=== PATIENT | female | born 1970 | race Caucasian/White ===

== ENCOUNTER 2018-09-21 11:41 | Emergency (ER) | payer OTHER, SELFPAY ==
[2018-09-21 12:00] VITALS: BP 121/66; PULSE 87; RESP 20; TEMP 37; O2SAT 98
--- NOTE | 2018-09-21 12:04 | DI.RAD.S_ITS ---
PROCEDURE: XR FOOT LT MIN 3V INDICATIONS: left foot and ankle pain TECHNIQUE: 3 views of the foot were acquired. COMPARISON: [facility], CR, ANKLE 3 VIEWS LEFT, 09/18/2012, 16:53. FINDINGS: Bones: No fractures or dislocations. No suspicious bony lesions. Note is made of a moderate-sized plantar fascial insertion spur at the posterior calcaneus, previously present. No source of new pain is identified. Soft tissues: No tibiotalar joint effusion. Achilles tendon appears normal. IMPRESSION: No trauma found, stable-appearing plantar fascia insertion spur at the posterior calcaneus. No source of new pain is not seen. Dictated by: Roman Alberto M.D. on 09/21/2018 at 12:28 Approved by: Roman Alberto M.D. on 09/21/2018 at 12:29
--- NOTE | 2018-09-21 12:05 | DI.RAD.S_ITS ---
PROCEDURE: XR ANKLE LT MIN 3V INDICATIONS: left ankle and foot pain TECHNIQUE: 3 views of the ankle were acquired. COMPARISON: [facility], , ANKLE 3 VIEWS LEFT, 09/18/2012, 16:53. FINDINGS: Bones: No fractures or dislocations. Ankle mortise is normally aligned. No suspicious bony lesions. Soft tissues: No tibiotalar joint effusion. Achilles tendon appears normal. IMPRESSION: No trauma, source of ankle pain is not identified. Dictated by: Roman Alberto M.D. on 09/21/2018 at 12:28 Approved by: Roman Alberto M.D. on 09/21/2018 at 12:28
--- NOTE | 2018-09-21 12:13 | ED.LOWEXIN ---
HPI - Extremity Injury (Lower) <Leilani Freitas PA-C - Last Filed: 09/21/18 19:12> General Chief Complaint: Extremity Injury, Lower Stated Complaint: FELL/CAN'T WALK ON LEFT ANKLE/FOOT Time Seen by Provider: 09/21/18 12:10 Source: patient Mode of arrival: other Limitations: no limitations History of Present Illness HPI Narrative: This 47-year-old female comes to ED due to left ft and ankle pain. She states that she was pushing in on a very heavy door yesterday when someone else was opening it, and she fell inward and tripped over the other person's foot, rolling her L. ankle inward. She felt a pop. She states that despite resting it and icing, she has not been able to weight bear since. She states that pain feels better with her foot slightly dorsiflexed, worse with trying to weight bear at all. She denies any actual fall or head contusion, denies any other injury or other new symptoms on systems review. Related Data Home Medications Medication Instructions Recorded Confirmed THYROID (BIO-THROID) #0 09/18/12 Allergies Allergy/AdvReac Type Severity Reaction Status Date / Time benzonatate Allergy Unknown AIRWAY Unverified 12/28/17 12:14 [From TESSALON PERLES] CONSTRICTION prochlorperazine Allergy Unknown ANXIETY Unverified 12/28/17 12:14 [From COMPAZINE] promethazine [From PHENERGAN] Allergy Unknown UNKNOWN Unverified 12/28/17 12:14 Review of Systems <Leilani Freitas PA-C - Last Filed: 09/21/18 19:12> Review of Systems All systems reviewed & are unremarkable except as noted in HPI and below PFSH <Leilani Freitas PA-C - Last Filed: 09/21/18 19:12> Comment: No EtOH or tobacco Exam <JAY Young Last Filed: 09/21/18 19:12> Narrative Exam Narrative: GENERAL APPEARANCE: Patient sitting comfortably, in no distress. LUNGS: Clear to auscultation bilaterally. HEART: Rate and rhythm regular without murmur, normal S1 and S2, no S3 or S4. NEUROVASCULAR: Ft are warm and pink with pedal pulses intact, sensation grossly intact MUSCULOSKELETAL: Tender inferior to the left lateral malleolus as well as over the proximal 4th and 5th metatarsals. There is mild effusion. No tenderness elsewhere over the ankle. No tenderness elsewhere over the metatarsals or tarsal bones. Achilles is intact by palpation. She has normal plantar and dorsiflexion of the toes. She has near full ankle range of motion when nonweightbearing with tenderness at endpoints. Unable to assess for laxity secondary to tenderness Initial Vital Signs Initial Vital Signs: Vital Signs Temperature 98.6 F 09/21/18 12:00 Pulse Rate 87 09/21/18 12:00 Respiratory Rate 20 09/21/18 12:00 Blood Pressure 121/66 09/21/18 12:00 Pulse Oximetry 98 09/21/18 12:00 <Ran Green DO - Last Filed: 09/24/18 18:37> Initial Vital Signs Initial Vital Signs: Vital Signs Temperature 98.6 F 09/21/18 12:00 Pulse Rate 87 09/21/18 12:00 Respiratory Rate 20 09/21/18 12:00 Blood Pressure 121/66 09/21/18 12:00 Pulse Oximetry 98 09/21/18 12:00 Course <Leilani Freitas PA-C - Last Filed: 09/21/18 19:12> Orders Ordered: ED Orders 09/21/18 12:04 XR foot LT min 3V Stat 09/21/18 12:05 XR ankle LT min 3V Stat Patient is [employer], tried crutches and gel splint, stated splint did not provided enough support for comfort. She felt better with foot slightly dorsiflex and requested posterior splint which was made. She reported her pain significantly improved with this, declined pain medications. She had previous fracture that did not appear on initial x-rays, so advised remaining in the splint and on crutches until reassessment next week, and if not improving repeat imaging is needed. She is agreeable. Splint check done, sensation intact, normal range of motion in the toes Vital Signs - 8 hr 09/21/18 12:00 09/21/18 12:21 Temperature 98.6 F Pulse Rate 87 Pulse Rate [Bilateral Dorsalis Pedis] 86 Respiratory Rate 20 Blood Pressure 121/66 Pulse Oximetry 98 <DO Mark Shipman Last Filed: 09/24/18 18:37> Orders Ordered: ED Orders 09/21/18 12:04 XR foot LT min 3V Stat 09/21/18 12:05 XR ankle LT min 3V Stat Vital Signs - 8 hr 09/21/18 12:00 09/21/18 12:21 Temperature 98.6 F Pulse Rate 87 Pulse Rate [Bilateral Dorsalis Pedis] 86 Respiratory Rate 20 Blood Pressure 121/66 Pulse Oximetry 98 MDM - Extremity Injury (Lower) <Leilani Freitas PA-C - Last Filed: 09/21/18 19:12> Imaging Data foot and ankle: Radiologist's impression: View Report History Print [address] [address] XRay Report Signed Patient: Tila Monroe MR#: [id number] : 1970 Acct:[id number] Age/Sex: 47 / F Date of Service: 09/21/18 Loc: ED Accession Number: [id number] Procedure: XR ankle LT min 3V Ordering Provider: Ran Green D.O. PROCEDURE: XR ANKLE LT MIN 3V INDICATIONS: left ankle and foot pain TECHNIQUE: 3 views of the ankle were acquired. COMPARISON: [facility], , ANKLE 3 VIEWS LEFT, 09/18/2012, 16:53. FINDINGS: Bones: No fractures or dislocations. Ankle mortise is normally aligned. No suspicious bony lesions. Soft tissues: No tibiotalar joint effusion. Achilles tendon appears normal. IMPRESSION: No trauma, source of ankle pain is not identified. Dictated by: Roman Alberto M.D. on 09/21/2018 at 12:28 Approved by: Roman Alberto M.D. on 09/21/2018 at 12:[address] [address] XRay Report Signed Patient: Tila Monroe MR#: [id number] : 1970 Acct:[id number] Age/Sex: 47 / F Date of Service: 09/21/18 Loc: ED Accession Number: [id number] Procedure: XR foot LT min 3V Ordering Provider: Ran Green D.O. PROCEDURE: XR FOOT LT MIN 3V INDICATIONS: left foot and ankle pain TECHNIQUE: 3 views of the foot were acquired. COMPARISON: [facility], CR, ANKLE 3 VIEWS LEFT, 09/18/2012, 16:53. FINDINGS: Bones: No fractures or dislocations. No suspicious bony lesions. Note is made of a moderate-sized plantar fascial insertion spur at the posterior calcaneus, previously present. No source of new pain is identified. Soft tissues: No tibiotalar joint effusion. Achilles tendon appears normal. IMPRESSION: No trauma found, stable-appearing plantar fascia insertion spur at the posterior calcaneus. No source of new pain is not seen. Dictated by: Roman Alberto M.D. on 09/21/2018 at 12:28 Approved by: Roman Alberto M.D. on 09/21/2018 at 12:29 Discharge Plan Departure Patient Disposition: Home Clinical Impression: Ankle sprain and strain Discharge Date/Time: 09/21/18 13:50 Interventions: ED Discharge Assessment Last Done: 09/21/18 13:49 Instructions: DI for Ankle Sprain Activity Restrictions/Additional Instructions: Please stay in the splint and use crutches for the week. Please follow up with your PCM next week to assess her progress. As we talked about, if you are not getting better, you definitely need further imaging such as repeat x-rays, bone scan or MRI, especially with your history that you told me about. Please return to the ED if you have new or acutely worsening symptoms in the interim Prescriptions: No Action THYROID (BIO-THROID) Qty: 0 RF: 0 Referrals: [facility] [Provider Group] <Ran Green DO - Last Filed: 09/24/18 18:37> Cosign ED Attending Ciro Attestation: I was available for consultation during this patient's emergency department encounter
[2018-09-21 12:21] VITALS: PULSE 86
== END 2018-09-21 13:50 | disposition home or self-care (01) ==
LOC: ED 13:08
PROVIDERS: Emergency Provider Internal Medicine
DX: S93.409A Sprain of unspecified ligament of unspecified ankle, initial encounter (principal); W19.XXXA Unspecified fall, initial encounter
CPT/HCPCS: 29515; 73610; 73630; 99282; 99283

== ENCOUNTER 2018-12-11 10:51 | Emergency (ER) | payer OTHER, SELFPAY ==
[2018-12-11 10:57] VITALS: BP 129/70; PULSE 79; RESP 14; TEMP 36.9; O2SAT 80
--- NOTE | 2018-12-11 12:27 | PC.NURSE ---
has been taking Sprionolactone instead for periorbital swelling for last 7 days. c/o withdrawl symptoms such as tremors, nightmare, worsening depressive mood, panic attacks, sweating, feling sick. She thinks might've had a episode of seizure last night. Unwitnessed syncopal episode, found self on the floor with muscle aches, jaw pain, but no incontinence. Pt has no hx of seizures. PT also has a hx of Jade's and recently increased Armor thyroid due to increased TSH >4
--- NOTE | 2018-12-11 13:06 | ED.RECABL ---
HPI - Recheck/Abnormal Lab/Rx <Sandy Rodríguez, RENEWABLE ENERGY TECHNICIAN-BC - Last Filed: 12/11/18 19:32> General Chief Complaint: Recheck/Abnormal Lab/Rx Stated Complaint: heart racing Time Seen by Provider: 12/11/18 12:24 Source: patient Mode of arrival: ambulatory Limitations: no limitations History of Present Illness HPI narrative: The patient is a 47-year-old female nonsmoker with a history of PSVT and Hashimotos who presents with her friend for various complaints. She states she has been sweating over the past few days, jittery, and had nightmares. She states she had nausea vomiting and diarrhea for several days, but that stopped. She states that she thinks she had a seizure yesterday, but it was not witnessed and she thinks she had a seizure due to hand cramping and drooling. She states that she stopped taking her 300 mg p.o. daily of Wellbutrin, and was accidentally double dosing her daily spironolactone. She states that this was due to the bottles looking similar and she had recent refills. She states that she feels ?very dumb? and is angry at herself for this mistake. She states that she has a history of passing out when she gets dehydrated and has been seen by powder compounder. Related Data Home Medications Medication Instructions Recorded Confirmed bupropion HCl 300 mg PO DAILY 12/11/18 12/11/18 cholecalciferol (vitamin D3) 5,000 unit PO WEEKLY 12/11/18 12/11/18 [Vitamin D3] multivitamin 1 tab PO DAILY 12/11/18 12/11/18 spironolactone 100 mg PO BID PRN 12/11/18 12/11/18 thyroid (pork) [Adkins Thyroid] 75 mg PO DAILY 12/11/18 12/11/18 Previous Rx's Medication Instructions Recorded hydroxyzine pamoate [Vistaril] 50 mg PO TID-QID PRN #20 cap 12/11/18 Allergies Allergy/AdvReac Type Severity Reaction Status Date / Time benzonatate Allergy Unknown AIRWAY Verified 12/11/18 11:02 [From TESSALON PERLES] CONSTRICTION prochlorperazine Allergy Unknown ANXIETY Verified 12/11/18 11:02 [From COMPAZINE] promethazine [From PHENERGAN] Allergy Unknown UNKNOWN Verified 12/11/18 11:02 Review of Systems <PRISCILLA Carcamo - Last Filed: 12/11/18 19:32> Review of Systems GENERAL: Denies chills, fatigue, malaise, fever, sweats. HEENT: Denies sinus pain, ear pain, sore throat, difficulty swallowing, dizziness. RESPIRATORY: Denies dyspnea, cough, wheezing, hemoptysis, sputum. CARDIOVASCULAR: See HPI GASTROINTESTINAL: See HPI : Denies dysuria, frequency, incontinence, hematuria, urinary retention. MUSCULOSKELETAL: denies weakness, joint pain, or bony pain SKIN: Denies rash, skin lesions, or other NEUROLOGIC: Denies weakness, headache, numbness, change in speech, confusion, seizures, incoordination. PSYCHIATRIC: No concerning psychosocial issues. 12 point review of systems is negative except for those stated above PFSH <PRISCILLA Carcamo - Last Filed: 12/11/18 19:32> Medical History Jade's thyroiditis (Chronic) PSVT (paroxysmal supraventricular tachycardia) (Chronic) Sick sinus syndrome (Chronic) Closed fracture of cuneiform bone of left ankle (Resolved) Surgical History (Updated 09/21/18 @ 12:57 by Leilani Freitas PA-C) History of radiofrequency ablation procedure for cardiac arrhythmia (Resolved) Family History (Updated 09/21/18 @ 12:58 by Leilani Freitas PA-C) Other No pertinent family history Social History Smoking Status: Never smoker Family History (Updated 09/21/18 @ 12:58 by Leilani Freitas PA-C) Other No pertinent family history Social History Smoking Status: Never smoker Exam <PRISCILLA Carcamo - Last Filed: 12/11/18 19:32> Narrative Exam Narrative: GENERAL: This is a well-nourished, well-developed patient, in no acute distress HEAD: Atraumatic. Normocephalic. No temporal or scalp tenderness. EYES: Pupils equal round and reactive. Extraocular motions intact. No scleral icterus. No injection or drainage. ENT: Nose without bleeding, purulent drainage or septal hematoma. Throat without erythema, tonsillar hypertrophy or exudate. Uvula midline. Airway patent. NECK: Trachea midline. No JVD or lymphadenopathy. Supple, nontender, no meningeal signs. CARDIOVASCULAR: Regular rate and rhythm RESPIRATORY: Clear to auscultation. Breath sounds equal bilaterally. No wheezes, rales, or rhonchi. No cough. No increased respiratory effort. GASTROINTESTINAL: Abdomen soft, non-tender, nondistended. No hepato-splenomegaly, or palpable masses. No guarding. Active bowel sounds all 4 quadrants. EXTREMITIES: No clubbing, cyanosis, or edema. No joint tenderness, effusion, or edema noted. No pedal edema bilaterally. BACK: Nontender without deformity or crepitance. No flank tenderness. NEURO: AOx3. SKIN: No rash or erythema. Initial Vital Signs Initial Vital Signs: Vital Signs Temperature 98.4 F 12/11/18 10:57 Pulse Rate 79 12/11/18 10:57 Respiratory Rate 14 12/11/18 10:57 Blood Pressure 129/70 12/11/18 10:57 Pulse Oximetry 80 L 12/11/18 10:57 <Kiana Womack DO - Last Filed: 12/13/18 10:14> Initial Vital Signs Initial Vital Signs: Vital Signs Temperature 98.4 F 12/11/18 10:57 Pulse Rate 79 12/11/18 10:57 Respiratory Rate 14 12/11/18 10:57 Blood Pressure 129/70 12/11/18 10:57 Pulse Oximetry 80 L 12/11/18 10:57 Course <LYRIC Carcamo-BC - Last Filed: 12/11/18 19:32> Course Narrative: I checked on the patient several times throughout her stay in the emergency department. Orders Ordered: Discontinued Medications Sodium Chloride (Normal Saline 0.9%) 1,000 mls @ 1,000 mls/hr IV BOLUS ONE Stop: 12/11/18 13:52 Last Infusion: 12/11/18 15:13 Dose: 0 mls/hr Admin: 12/11/18 14:04 Dose: 1,000 mls/hr Vital Signs - 8 hr 12/11/18 13:25 12/11/18 14:14 12/11/18 15:23 Pulse Rate 68 62 Pulse Rate [Orthostatic Lying] 60 Pulse Rate [Orthostatic Sitting] 83 Pulse Rate [Orthostatic Standing] 77 Respiratory Rate 12 17 Blood Pressure [Left Arm] 95/76 92/52 L Blood Pressure [Orthostatic Lying] 94/66 Blood Pressure [Orthostatic Sitting] 102/67 Blood Pressure [Orthostatic Standing] 92/63 Pulse Oximetry 100 98 12/11/18 15:30 12/11/18 16:05 Pulse Rate 63 61 Pulse Rate [Orthostatic Lying] Pulse Rate [Orthostatic Sitting] Pulse Rate [Orthostatic Standing] Respiratory Rate 18 14 Blood Pressure [Left Arm] 92/63 94/58 L Blood Pressure [Orthostatic Lying] Blood Pressure [Orthostatic Sitting] Blood Pressure [Orthostatic Standing] Pulse Oximetry 100 98 <Kiana Womack DO - Last Filed: 12/13/18 10:14> Orders Ordered: Discontinued Medications Sodium Chloride (Normal Saline 0.9%) 1,000 mls @ 1,000 mls/hr IV BOLUS ONE Stop: 12/11/18 13:52 Last Infusion: 12/11/18 15:13 Dose: 0 mls/hr Admin: 12/11/18 14:04 Dose: 1,000 mls/hr Vital Signs - 8 hr 12/11/18 13:25 12/11/18 14:14 12/11/18 15:23 Pulse Rate 68 62 Pulse Rate [Orthostatic Lying] 60 Pulse Rate [Orthostatic Sitting] 83 Pulse Rate [Orthostatic Standing] 77 Respiratory Rate 12 17 Blood Pressure [Left Arm] 95/76 92/52 L Blood Pressure [Orthostatic Lying] 94/66 Blood Pressure [Orthostatic Sitting] 102/67 Blood Pressure [Orthostatic Standing] 92/63 Pulse Oximetry 100 98 12/11/18 15:30 12/11/18 16:05 Pulse Rate 63 61 Pulse Rate [Orthostatic Lying] Pulse Rate [Orthostatic Sitting] Pulse Rate [Orthostatic Standing] Respiratory Rate 18 14 Blood Pressure [Left Arm] 92/63 94/58 L Blood Pressure [Orthostatic Lying] Blood Pressure [Orthostatic Sitting] Blood Pressure [Orthostatic Standing] Pulse Oximetry 100 98 MDM - Recheck/Abnormal Lab/Rx <PRISCILLA Carcamo - Last Filed: 12/11/18 19:32> Lab Data Result diagrams: 12/11/18 13:00 12/11/18 13:00 Lab Results 12/11/18 12/11/18 12/11/18 Range/Units 13:00 13:00 13:00 WBC 4.6 (4.5-11.0) X10^3/uL RBC 4.22 (4.0-5.2) X10^6/uL Hgb 13.8 (12.0-16.0) g/dL Hct 39.3 (36-46) % MCV 93.0 (80-100) fL MCH 32.7 (26-34) PG MCHC 35.2 (30-36) % RDW 12.0 (11.6-14.8) % Plt Count 279 (150-400) X10^3/uL Neut % (Auto) 61.0 (50-75) % Lymph % (Auto) 29.5 (25-40) % [place] % (Auto) 8.3 (3-14) % Eos % (Auto) 0.7 L (2-4) % Baso % (Auto) 0.5 (0-2) % Neut # (Auto) 2800 (8709-4595) /uL Lymph # (Auto) 1400 (4006-8378) /uL [place] # (Auto) 400 (0-900) /uL Eos # (Auto) 0 (0-450) /uL Baso # (Auto) 0 (0-100) /uL Sodium 138 (137-145) mmol/L Potassium 3.8 (3.4-5.1) mmol/L Chloride 99 (98-107) mmol/L Carbon Dioxide 29 (22-32) mmol/L BUN 23 H (7-17) mg/dL Creatinine 0.90 (0.52-1.04) mg/dL Estimated GFR > 60.0 (>60) mL/min BUN/Creatinine Ratio 25.6 H (6-22) Glucose 81 (70-100) mg/dL Calcium 9.5 (8.4-10.2) mg/dL Total Bilirubin 1.4 H (0.2-1.3) mg/dL AST 30 (14-36) IU/L ALT 33 (9-52) IU/L Alkaline Phosphatase 55 (38-126) U/L Total Creatine Kinase 122 (30-135) U/L CK-MB (CK-2) 1.49 (<2.37) ng/mL CK-MB (CK-2) Rel Index 1.2 L (1.5-5.0) % Troponin I < 0.012 (0.01-0.034) ng/mL Total Protein 7.2 (6.3-8.2) g/dL Albumin 4.5 (3.5-5.0) g/dL Globulin 2.7 (1.7-4.1) g/dL Albumin/Globulin Ratio 1.7 (1.0-2.8) TSH (0.47-4.68) uIU/mL 12/11/18 Range/Units 13:00 WBC (4.5-11.0) X10^3/uL RBC (4.0-5.2) X10^6/uL Hgb (12.0-16.0) g/dL Hct (36-46) % MCV (80-100) fL MCH (26-34) PG MCHC (30-36) % RDW (11.6-14.8) % Plt Count (150-400) X10^3/uL Neut % (Auto) (50-75) % Lymph % (Auto) (25-40) % [place] % (Auto) (3-14) % Eos % (Auto) (2-4) % Baso % (Auto) (0-2) % Neut # (Auto) (8770-9024) /uL Lymph # (Auto) (6654-7199) /uL [place] # (Auto) (0-900) /uL Eos # (Auto) (0-450) /uL Baso # (Auto) (0-100) /uL Sodium (137-145) mmol/L Potassium (3.4-5.1) mmol/L Chloride (98-107) mmol/L Carbon Dioxide (22-32) mmol/L BUN (7-17) mg/dL Creatinine (0.52-1.04) mg/dL Estimated GFR (>60) mL/min BUN/Creatinine Ratio (6-22) Glucose (70-100) mg/dL Calcium (8.4-10.2) mg/dL Total Bilirubin (0.2-1.3) mg/dL AST (14-36) IU/L ALT (9-52) IU/L Alkaline Phosphatase (38-126) U/L Total Creatine Kinase (30-135) U/L CK-MB (CK-2) (<2.37) ng/mL CK-MB (CK-2) Rel Index (1.5-5.0) % Troponin I (0.01-0.034) ng/mL Total Protein (6.3-8.2) g/dL Albumin (3.5-5.0) g/dL Globulin (1.7-4.1) g/dL Albumin/Globulin Ratio (1.0-2.8) TSH 0.80 (0.47-4.68) uIU/mL Point of Care Testing Test Results Negative Urine Dip Bedside Urine Glucose Negative Bedside Urine Bilirubin - Negative Bedside Urine Ketone - Negative Urine Specific [place] 1.010 Bedside Urine Occult Blood - Negative Bedside Urine pH 7.5 Bedside Urine Protein - Negative Bedside Urine Urobilinogen - Negative Bedside Urine Nitrite - Negative Bedside Urine Leukocytes - Negative Esterase ECG Data Attestation: I personally reviewed and interpreted this ECG as follows: Interpretation: Sinus rhythm. Rate 69. PVC noted. DC 172. MDM Narrative Medical decision making narrative: This patient was initially concerned about a thyroid storm prior to discovering that she was not taking her 300 mg p.o. daily and Wellbutrin our replacing it with an extra dose of spironolactone. However she is afebrile, not tachycardic, does not have any edema, it is not agitated or in [place]. She has no jaundice and no GI symptoms. I discussed that if she is concerned about seizure activity, usually get a head CT on all new seizures. She declined a head CT at this point time. I am okay with this as the seizure was unwitnessed, reportedly happened yesterday and the patient had no incontinence of this. She states she woke up and feels [she] might have had a seizure, and has had no seizure in the emergency department. I also discussed with her at length that if she has syncopal episode, for further investigation could be needed. She does state that she has a history of syncopal episodes, and has seen a powder compounder that she needs to follow up with. I discussed the possibility of monitoring, observation and/or admission. The patient declined all of the above. She then requests that we make an appointment for her with her powder compounder at [facility], Dr. Weber. His office is was, contacted by nursing staff and it was found that she had never been seen as a patient at [facility]. The patient had a normal TSH, nor negative orthostatics as well. She requested to go home and rest and not want a CT scan, admission or further evaluation. <Kiana Womack, DO - Last Filed: 12/13/18 10:14> Lab Data Lab Results 12/11/18 12/11/18 12/11/18 Range/Units 13:00 13:00 13:00 WBC 4.6 (4.5-11.0) X10^3/uL RBC 4.22 (4.0-5.2) X10^6/uL Hgb 13.8 (12.0-16.0) g/dL Hct 39.3 (36-46) % MCV 93.0 (80-100) fL MCH 32.7 (26-34) PG MCHC 35.2 (30-36) % RDW 12.0 (11.6-14.8) % Plt Count 279 (150-400) X10^3/uL Neut % (Auto) 61.0 (50-75) % Lymph % (Auto) 29.5 (25-40) % [place] % (Auto) 8.3 (3-14) % Eos % (Auto) 0.7 L (2-4) % Baso % (Auto) 0.5 (0-2) % Neut # (Auto) 2800 (0211-9258) /uL Lymph # (Auto) 1400 (2289-6047) /uL [place] # (Auto) 400 (0-900) /uL Eos # (Auto) 0 (0-450) /uL Baso # (Auto) 0 (0-100) /uL Sodium 138 (137-145) mmol/L Potassium 3.8 (3.4-5.1) mmol/L Chloride 99 (98-107) mmol/L Carbon Dioxide 29 (22-32) mmol/L BUN 23 H (7-17) mg/dL Creatinine 0.90 (0.52-1.04) mg/dL Estimated GFR > 60.0 (>60) mL/min BUN/Creatinine Ratio 25.6 H (6-22) Glucose 81 (70-100) mg/dL Calcium 9.5 (8.4-10.2) mg/dL Total Bilirubin 1.4 H (0.2-1.3) mg/dL AST 30 (14-36) IU/L ALT 33 (9-52) IU/L Alkaline Phosphatase 55 (38-126) U/L Total Creatine Kinase 122 (30-135) U/L CK-MB (CK-2) 1.49 (<2.37) ng/mL CK-MB (CK-2) Rel Index 1.2 L (1.5-5.0) % Troponin I < 0.012 (0.01-0.034) ng/mL Total Protein 7.2 (6.3-8.2) g/dL Albumin 4.5 (3.5-5.0) g/dL Globulin 2.7 (1.7-4.1) g/dL Albumin/Globulin Ratio 1.7 (1.0-2.8) TSH (0.47-4.68) uIU/mL 12/11/18 Range/Units 13:00 WBC (4.5-11.0) X10^3/uL RBC (4.0-5.2) X10^6/uL Hgb (12.0-16.0) g/dL Hct (36-46) % MCV (80-100) fL MCH (26-34) PG MCHC (30-36) % RDW (11.6-14.8) % Plt Count (150-400) X10^3/uL Neut % (Auto) (50-75) % Lymph % (Auto) (25-40) % [place] % (Auto) (3-14) % Eos % (Auto) (2-4) % Baso % (Auto) (0-2) % Neut # (Auto) (8081-9565) /uL Lymph # (Auto) (5858-4474) /uL [place] # (Auto) (0-900) /uL Eos # (Auto) (0-450) /uL Baso # (Auto) (0-100) /uL Sodium (137-145) mmol/L Potassium (3.4-5.1) mmol/L Chloride (98-107) mmol/L Carbon Dioxide (22-32) mmol/L BUN (7-17) mg/dL Creatinine (0.52-1.04) mg/dL Estimated GFR (>60) mL/min BUN/Creatinine Ratio (6-22) Glucose (70-100) mg/dL Calcium (8.4-10.2) mg/dL Total Bilirubin (0.2-1.3) mg/dL AST (14-36) IU/L ALT (9-52) IU/L Alkaline Phosphatase (38-126) U/L Total Creatine Kinase (30-135) U/L CK-MB (CK-2) (<2.37) ng/mL CK-MB (CK-2) Rel Index (1.5-5.0) % Troponin I (0.01-0.034) ng/mL Total Protein (6.3-8.2) g/dL Albumin (3.5-5.0) g/dL Globulin (1.7-4.1) g/dL Albumin/Globulin Ratio (1.0-2.8) TSH 0.80 (0.47-4.68) uIU/mL Point of Care Testing Test Results Negative Urine Dip Bedside Urine Glucose Negative Bedside Urine Bilirubin - Negative Bedside Urine Ketone - Negative Urine Specific [place] 1.010 Bedside Urine Occult Blood - Negative Bedside Urine pH 7.5 Bedside Urine Protein - Negative Bedside Urine Urobilinogen - Negative Bedside Urine Nitrite - Negative Bedside Urine Leukocytes - Negative Esterase Discharge Plan Departure Patient Disposition: Home Clinical Impression: Dizziness Medication administered in error Qualifiers: Encounter type: initial encounter Injury intent: accidental or unintentional Qualified Code(s): T50.901A - Poisoning by unspecified drugs, medicaments and biological substances, accidental (unintentional), initial encounter Discharge Date/Time: 12/11/18 16:29 Interventions: ED Discharge Assessment Last Done: 12/11/18 16:28 Instructions: DI for Safely Taking and Storing Medications -- Adults, DI for Dizziness-Nonvertigo Activity Restrictions/Additional Instructions: Your TSH today is 0.8. Your orthostatic vital signs were normal. Your CBC, CMP and troponin were all normal. Please take your medications appropriately at home, be careful to not mix up her Wellbutrin and spironolactone. Please follow up with your primary care provider soon as possible. Please follow up with your powder compounder as well. I have given you a prescription for some Vistaril as needed. Come back to emergency department for any acute concerns. Prescriptions: New hydroxyzine pamoate [Vistaril] 50 mg capsule 50 mg PO TID-QID PRN (Reason: anxiety) Qty: 20 RF: 0 No Action spironolactone 100 mg tablet 100 mg PO BID PRN (Reason: as directed) RF: 0 bupropion HCl 300 mg tablet extended release 24 hr 300 mg PO DAILY RF: 0 thyroid (pork) [Adkins Thyroid] 30 mg tablet 75 mg PO DAILY RF: 0 multivitamin Tablet 1 tab PO DAILY RF: 0 cholecalciferol (vitamin D3) [Vitamin D3] 5,000 unit Tablet 5,000 unit PO WEEKLY RF: 0 Referrals: [facility] [Provider Group] <Kiana Womack DO - Last Filed: 12/13/18 10:14> Cosign ED Attending Ciro Attestation: I was immediately available in the department for consultation. Documentation has been reviewed. I agree with assessment and plan.
[2018-12-11 13:08] LABS: Add Manual Diff / Slide Review NO; Basophils Absolute Auto 0 /uL (0-100); Basophils Percent Auto 0.5 % (0-2); Eosinophils Absolute Auto 0 /uL (0-450); Eosinophils Percent Auto 0.7 % (2-4); Hematocrit 39.3 % (36-46); Hemoglobin 13.8 g/dL (12.0-16.0); Lymphocytes Absolute Auto 1400 /uL (1100-4500); Lymphocytes Percent Auto 29.5 % (25-40); Mean Corpuscular HGB Conc 35.2 % (30-36); Mean Corpuscular Hemoglobin 32.7 PG (26-34); Monocytes Absolute Auto 400 /uL (0-900); Monocytes Percent Auto 8.3 % (3-14); Neutrophils Absolute Auto 2800 /uL (1500-7000); Platelet Count 279 X10^3/uL (150-400); Red Blood Cell Count 4.22 X10^6/uL (4.0-5.2); White Blood Cell Count 4.6 X10^3/uL (4.5-11.0)
--- NOTE | 2018-12-11 13:13 | ED_ITS ---
HPI - Recheck/Abnormal Lab/Rx <Sandy Rodríguez, NUCLEAR RADIATION ENGINEER-BC - Last Filed: 12/11/18 19:32> General Chief Complaint: Recheck/Abnormal Lab/Rx Stated Complaint: heart racing Time Seen by Provider: 12/11/18 12:24 Source: patient Mode of arrival: ambulatory Limitations: no limitations History of Present Illness HPI narrative: The patient is a 47-year-old female nonsmoker with a history of PSVT and Hashimotos who presents with her friend for various complaints. She states she has been sweating over the past few days, jittery, and had nightmares. She states she had nausea vomiting and diarrhea for several days, but that stopped. She states that she thinks she had a seizure yesterday, but it was not witnessed and she thinks she had a seizure due to hand cramping and drooling. She states that she stopped taking her 300 mg p.o. daily of Wellbutrin, and was accidentally double dosing her daily spironolactone. She states that this was due to the bottles looking similar and she had recent refi lls. She states that she feels ?very dumb? and is angry at herself for this mistake. She states that she has a history of passing out when she gets dehydrated and has been seen by channel process supervisor. Related Data Home Medications Medication Instructions Recorded Confirmed bupropion HCl 300 mg PO DAILY 12/11/18 12/11/18 cholecalciferol (vitamin D3) 5,000 unit PO WEEKLY 12/11/18 12/11/18 [Vitamin D3] multivitamin 1 tab PO DAILY 12/11/18 12/11/18 spironolactone 100 mg PO BID PRN 12/11/18 12/11/18 thyroid (pork) [[place] Thyroid] 75 mg PO DAILY 12/11/18 12/11/18 Previous Rx's Medication Instructions Recorded hydroxyzine pamoate [Vistaril] 50 mg PO TID-QID PRN #20 cap 12/11/18 Allergies Allergy/AdvReac Type Severity Reaction Status Date / Time benzonatate Allergy Unknown AIRWAY Verified 12/11/18 11:02 [From TESSALON PERLES] CONSTRICTION prochlorperazine Allergy Unknown ANXIETY Verified 12/11/18 11:02 [From COMPAZINE] promethazine [From PHENERGAN] Allergy Unknown UNKNOWN Verified 12/11/18 11:02 Review of Systems <PRISCILLA Carcamo - Last Filed: 12/11/18 19:32> Review of Systems GENERAL: Denies chills, fatigue, malaise, fever, sweats. HEENT: Denies sinus pain, ear pain, sore throat, difficulty swallowing, dizziness. RESPIRATORY: Denies dyspnea, cough, wheezing, hemoptysis, sputum. CARDIOVASCULAR: See HPI GASTROINTESTINAL: See HPI : Denies dysuria, frequency, incontinence, hematuria, urinary retention. MUSCULOSKELETAL: denies weakness, joint pain, or bony pain SKIN: Denies rash, skin lesions, or other NEUROLOGIC: Denies weakness, headache, numbness, change in speech, confusion, seizures, incoordination. PSYCHIATRIC: No concerning psychosocial issues. 12 point review of systems is negative except for those stated above PFSH <PRISCILLA Carcamo - Last Filed: 12/11/18 19:32> Medical History Jade's thyroiditis (Chronic) PSVT (paroxysmal supraventricular tachycardia) (Chronic) Sick sinus syndrome (Chronic) Closed fracture of cuneiform bone of left ankle (Resolved) Surgical History (Updated 09/21/18 @ 12:57 by Leilani Freitas PA-C) History of radiofrequency ablation procedure for cardiac arrhythmia (Resolved) Family History (Updated 09/21/18 @ 12:58 by Leilani Freitas PA-C) Other No pertinent family history Social History Smoking Status: Never smoker Family History (Updated 09/21/18 @ 12:58 by Leilani Freitas PA-C) Other No pertinent family history Social History Smoking Status: Never smoker Exam <PRISCILLA Carcamo - Last Filed: 12/11/18 19:32> Narrative Exam Narrative: GENERAL: This is a well-nourished, well-developed patient, in no acute distress HEAD: Atraumatic. Normocephalic. No temporal or scalp tenderness. EYES: Pupils equal round and reactive. Extraocular motions intact. No scleral ic terus. No injection or drainage. ENT: Nose without bleeding, purulent drainage or septal hematoma. Throat without erythema, tonsillar hypertrophy or exudate. Uvula midline. Airway patent. NECK: Trachea midline. No JVD or lymphadenopathy. Supple, nontender, no meningeal signs. CARDIOVASCULAR: Regular rate and rhythm RESPIRATORY: Clear to auscultation. Breath sounds equal bilaterally. No wheezes, rales, or rhonchi. No cough. No increased respiratory effort. GASTROINTESTINAL: Abdomen soft, non-tender, nondistended. No hepato- splenomegaly, or palpable masses. No guarding. Active bowel sounds all 4 quadrants. EXTREMITIES: No clubbing, cyanosis, or edema. No joint tenderness, effusion, or edema noted. No pedal edema bilaterally. BACK: Nontender without deformity or crepitance. No flank tenderness. NEURO: AOx3. SKIN: No rash or erythema. Initial Vital Signs Initial Vital Signs: Vital Signs Temperature 98.4 F 12/11/18 10:57 Pulse Rate 79 12/11/18 10:57 Respiratory Rate 14 12/11/18 10:57 Blood Pressure 129/70 12/11/18 10:57 Pulse Oximetry 80 L 12/11/18 10:57 <Kiana Womack DO - Last Filed: 12/13/18 10:14> Initial Vital Signs Initial Vital Signs: Vital Signs Temperature 98.4 F 12/11/18 10:57 Pulse Rate 79 12/11/18 10:57 Respiratory Rate 14 12/11/18 10:57 Blood Pressure 129/70 12/11/18 10:57 Pulse Oximetry 80 L 12/11/18 10:57 Course <LYRIC Carcamo-BC - Last Filed: 12/11/18 19:32> Course Narrative: I checked on the patient several times throughout her stay in the emergency department. Orders Ordered: Discontinued Medications Sodium Chloride (Normal Saline 0.9%) 1,000 mls @ 1,000 mls/hr IV BOLUS ONE Stop: 12/11/18 13:52 Last Infusion: 12/11/18 15:13 Dose: 0 mls/hr Admin: 12/11/18 14:04 Dose: 1,000 mls/hr Vital Signs - 8 hr 12/11/18 13:25 12/11/18 14:14 12/11/18 15:23 Pulse Rate 68 62 Pulse Rate [Orthostatic Lying] 60 Pulse Rate [Orthostatic Sitting] 83 Pulse Rate [Orthostatic Standing] 77 Respiratory Rate 12 17 Blood Pressure [Left Arm] 95/76 92/52 L Blood Pressure [Orthostatic Lying] 94/66 Blood Pressure [Orthostatic Sitting] 102/67 Blood Pressure [Orthostatic Standing] 92/63 Pulse Oximetry 100 98 12/11/18 15:30 12/11/18 16:05 Pulse Rate 63 61 Pulse Rate [Orthostatic Lying] Pulse Rate [Orthostatic Sitting] Pulse Rate [Orthostatic Standing] Respiratory Rate 18 14 Blood Pressure [Left Arm] 92/63 94/58 L Blood Pressure [Orthostatic Lying] Blood Pressure [Orthostatic Sitting] Blood Pressure [Orthostatic Standing] Pulse Oximetry 100 98 <Kiana Womack DO - Last Filed: 12/13/18 10:14> Orders Ordered: Discontinued Medications Sodium Chloride (Normal Saline 0.9%) 1,000 mls @ 1,000 mls/hr IV BOLUS ONE Stop: 12/11/18 13:52 Last Infusion: 12/11/18 15:13 Dose: 0 mls/hr Admin: 12/11/18 14:04 Dose: 1,000 mls/hr Vital Signs - 8 hr 12/11/18 13:25 12/11/18 14:14 12/11/18 15:23 Pulse Rate 68 62 Pulse Rate [Orthostatic Lying] 60 Pulse Rate [Orthostatic Sitting] 83 Pulse Rate [Orthostatic Standing] 77 Respiratory Rate 12 17 Blood Pressure [Left Arm] 95/76 92/52 L Blood Pressure [Orthostatic Lying] 94/66 Blood Pressure [Orthostatic Sitting] 102/67 Blood Pressure [Orthostatic Standing] 92/63 Pulse Oximetry 100 98 12/11/18 15:30 12/11/18 16:05 Pulse Rate 63 61 Pulse Rate [Orthostatic Lying] Pulse Rate [Orthostatic Sitting] Pulse Rate [Orthostatic Standing] Respiratory Rate 18 14 Blood Pressure [Left Arm] 92/63 94/58 L Blood Pressure [Orthostatic Lying] Blood Pressure [Orthostatic Sitting] Blood Pressure [Orthostatic Standing] Pulse Oximetry 100 98 MDM - Recheck/Abnormal Lab/Rx <PRISCILLA Carcamo - Last Filed: 12/11/18 19:32> Lab Data Result diagrams: 12/11/18 13:00 12/11/18 13:00 Lab Results 12/11/18 12/11/18 12/11/18 Range/Units 13:00 13:00 13:00 WBC 4.6 (4.5-11.0) X10^3/uL RBC 4.22 (4.0-5.2) X10^6/uL Hgb 13.8 (12.0-16.0) g/dL Hct 39.3 (36-46) % MCV 93.0 (80-100) fL MCH 32.7 (26-34) PG MCHC 35.2 (30-36) % RDW 12.0 (11.6-14.8) % Plt Count 279 (150-400) X10^3/uL Neut % (Auto) 61.0 (50-75) % Lymph % (Auto) 29.5 (25-40) % [place] % (Auto) 8.3 (3-14) % Eos % (Auto) 0.7 L (2-4) % Baso % (Auto) 0.5 (0-2) % Neut # (Auto) 2800 (3055-2253) /uL Lymph # (Auto) 1400 (5678-4091) /uL [place] # (Auto) 400 (0-900) /uL Eos # (Auto) 0 (0-450) /uL Baso # (Auto) 0 (0-100) /uL Sodium 138 (137-145) mmol/L Potassium 3.8 (3.4-5.1) mmol/L Chloride 99 (98-107) mmol/L Carbon Dioxide 29 (22-32) mmol/L BUN 23 H (7-17) mg/dL Creatinine 0.90 (0.52-1.04) mg/dL Estimated GFR > 60.0 (>60) mL/min BUN/Creatinine Ratio 25.6 H (6-22) Glucose 81 (70-100) mg/dL Calcium 9.5 (8.4-10.2) mg/dL Total Bilirubin 1.4 H (0.2-1.3) mg/dL AST 30 (14-36) IU/L ALT 33 (9-52) IU/L Alkaline Phosphatase 55 (38-126) U/L Total Creatine Kinase 122 (30-135) U/L CK-MB (CK-2) 1.49 (<2.37) ng/mL CK-MB (CK-2) Rel Index 1.2 L (1.5-5.0) % Troponin I < 0.012 (0.01-0.034) ng/mL Total Protein 7.2 (6.3-8.2) g/dL Albumin 4.5 (3.5-5.0) g/dL Globulin 2.7 (1.7-4.1) g/dL Albumin/Globulin Ratio 1.7 (1.0-2.8) TSH (0.47-4.68) uIU/mL 12/11/18 Range/Units 13:00 WBC (4.5-11.0) X10^3/uL RBC (4.0-5.2) X10^6/uL Hgb (12.0-16.0) g/dL Hct (36-46) % MCV (80-100) fL MCH (26-34) PG MCHC (30-36) % RDW (11.6-14.8) % Plt Count (150-400) X10^3/uL Neut % (Auto) (50-75) % Lymph % (Auto) (25-40) % [place] % (Auto) (3-14) % Eos % (Auto) (2-4) % Baso % (Auto) (0-2) % Neut # (Auto) (7840-9576) /uL Lymph # (Auto) (9273-7053) /uL [place]lan # (Auto) (0-900) /uL Eos # (Auto) (0-450) /uL Baso # (Auto) (0-100) /uL Sodium (137-145) mmol/L Potassium (3.4-5.1) mmol/L Chloride (98-107) mmol/L Carbon Dioxide (22-32) mmol/L BUN (7-17) mg/dL Creatinine (0.52-1.04) mg/dL Estimated GFR (>60) mL/min BUN/Creatinine Ratio (6-22) Glucose (70-100) mg/dL Calcium (8.4-10.2) mg/dL Total Bilirubin (0.2-1.3) mg/dL AST (14-36) IU/L ALT (9-52) IU/L Alkaline Phosphatase (38-126) U/L Total Creatine Kinase (30-135) U/L CK-MB (CK-2) (<2.37) ng/mL CK-MB (CK-2) Rel Index (1.5-5.0) % Troponin I (0.01-0.034) ng/mL Total Protein (6.3-8.2) g/dL Albumin (3.5-5.0) g/dL Globulin (1.7-4.1) g/dL Albumin/Globulin Ratio (1.0-2.8) TSH 0.80 (0.47-4.68) uIU/mL Point of Care Testing Test Results Negative Urine Dip Bedside Urine Glucose Negative Bedside Urine Bilirubin - Negative Bedside Urine Ketone - Negative Urine Specific [place] 1.010 Bedside Urine Occult Blood - Negative Bedside Urine pH 7.5 Bedside Urine Protein - Negative Bedside Urine Urobilinogen - Negative Bedside Urine Nitrite - Negative Bedside Urine Leukocytes - Negative Esterase ECG Data Attestation: I personally reviewed and interpreted this ECG as follows: Interpretation: Sinus rhythm. Rate 69. PVC noted. IL 172. MDM Narrative Medical decision making narrative: This patient was initially concerned about a thyroid storm prior to discovering that she was not taking her 300 mg p.o. daily and Wellbutrin our replacing it with an extra dose of spironolactone. However she is afebrile, not tachycardic, does not have any edema, it is not agitated or in [place]. She has no jaundice and no GI symptoms. I discussed that if she is concerned about seizure activity, usually get a head CT on all new seizures. She declined a head CT at this point time. I am okay with this as the seizure was unwitnessed, reportedly happened yesterday and the patient had no incontinence of this. She states she woke up and feels [she] might have had a seizure, and has had no seizure in the emergency department. I also discussed with her at length that if she has syncopal episode, for further investigation could be needed. She does state that she has a history of syncopal episodes, and has seen a channel process supervisor that she needs to follow up with. I discussed the possibility of monitoring, observation and/or admission. The patient declined all of the above. She then requests that we make an appointment for her with her channel process supervisor at [facility], Dr. Weber. His office is was, contacted by nursing staff and it was found that she had never been seen as a patient at [facility]. The patient had a normal TSH, nor negative orthostatics as well. She requested to go home and rest and not want a CT scan, admission or further evaluation. <Kiana Womack, DO - Last Filed: 12/13/18 10:14> Lab Data Lab Results 12/11/18 12/11/18 12/11/18 Range/Units 13:00 13:00 13:00 WBC 4.6 (4.5-11.0) X10^3/uL RBC 4.22 (4.0-5.2) X10^6/uL Hgb 13.8 (12.0-16.0) g/dL Hct 39.3 (36-46) % MCV 93.0 (80-100) fL MCH 32.7 (26-34) PG MCHC 35.2 (30-36) % RDW 12.0 (11.6-14.8) % Plt Count 279 (150-400) X10^3/uL Neut % (Auto) 61.0 (50-75) % Lymph % (Auto) 29.5 (25-40) % Harlan % (Auto) 8.3 (3-14) % Eos % (Auto) 0.7 L (2-4) % Baso % (Auto) 0.5 (0-2) % Neut # (Auto) 2800 (0470-3200) /uL Lymph # (Auto) 1400 (6457-2957) /uL [place] # (Auto) 400 (0-900) /uL Eos # (Auto) 0 (0-450) /uL Baso # (Auto) 0 (0-100) /uL Sodium 138 (137-145) mmol/L Potassium 3.8 (3.4-5.1) mmol/L Chloride 99 (98-107) mmol/L Carbon Dioxide 29 (22-32) mmol/L BUN 23 H (7-17) mg/dL Creatinine 0.90 (0.52-1.04) mg/dL Estimated GFR > 60.0 (>60) mL/min BUN/Creatinine Ratio 25.6 H (6-22) Glucose 81 (70-100) mg/dL Calcium 9.5 (8.4-10.2) mg/dL Total Bilirubin 1.4 H (0.2-1.3) mg/dL AST 30 (14-36) IU/L ALT 33 (9-52) IU/L Alkaline Phosphatase 55 (38-126) U/L Total Creatine Kinase 122 (30-135) U/L CK-MB (CK-2) 1.49 (<2.37) ng/mL CK-MB (CK-2) Rel Index 1.2 L (1.5-5.0) % Troponin I < 0.012 (0.01-0.034) ng/mL Total Protein 7.2 (6.3-8.2) g/dL Albumin 4.5 (3.5-5.0) g/dL Globulin 2.7 (1.7-4.1) g/dL Albumin/Globulin Ratio 1.7 (1.0-2.8) TSH (0.47-4.68) uIU/mL 12/11/18 Range/Units 13:00 WBC (4.5-11.0) X10^3/uL RBC (4.0-5.2) X10^6/uL Hgb (12.0-16.0) g/dL Hct (36-46) % MCV (80-100) fL MCH (26-34) PG MCHC (30-36) % RDW (11.6-14.8) % Plt Count (150-400) X10^3/uL Neut % (Auto) (50-75) % Lymph % (Auto) (25-40) % [place] % (Auto) (3-14) % Eos % (Auto) (2-4) % Baso % (Auto) (0-2) % Neut # (Auto) (4941-8644) /uL Lymph # (Auto) (1264-4013) /uL [place]lan # (Auto) (0-900) /uL Eos # (Auto) (0-450) /uL Baso # (Auto) (0-100) /uL Sodium (137-145) mmol/L Potassium (3.4-5.1) mmol/L Chloride (98-107) mmol/L Carbon Dioxide (22-32) mmol/L BUN (7-17) mg/dL Creatinine (0.52-1.04) mg/dL Estimated GFR (>60) mL/min BUN/Creatinine Ratio (6-22) Glucose (70-100) mg/dL Calcium (8.4-10.2) mg/dL Total Bilirubin (0.2-1.3) mg/dL AST (14-36) IU/L ALT (9-52) IU/L Alkaline Phosphatase (38-126) U/L Total Creatine Kinase (30-135) U/L CK-MB (CK-2) (<2.37) ng/mL CK-MB (CK-2) Rel Index (1.5-5.0) % Troponin I (0.01-0.034) ng/mL Total Protein (6.3-8.2) g/dL Albumin (3.5-5.0) g/dL Globulin (1.7-4.1) g/dL Albumin/Globulin Ratio (1.0-2.8) TSH 0.80 (0.47-4.68) uIU/mL Point of Care Testing Test Results Negative Urine Dip Bedside Urine Glucose Negative Bedside Urine Bilirubin - Negative Bedside Urine Ketone - Negative Urine Specific [place] 1.010 Bedside Urine Occult Blood - Negative Bedside Urine pH 7.5 Bedside Urine Protein - Negative Bedside Urine Urobilinogen - Negative Bedside Urine Nitrite - Negative Bedside Urine Leukocytes - Negative Esterase Discharge Plan Departure Patient Disposition: Home Clinical Impression: Dizziness Medication administered in error Qualifiers: Encounter type: initial encounter Injury intent: accidental or unintentional Qualified Code(s): T50.901A - Poisoning by unspecified drugs, medicaments and biological substances, accidental (unintentional), initial encounter Discharge Date/Time: 12/11/18 16:29 Interventions: ED Discharge Assessment Last Done: 12/11/18 16:28 Instructions: DI for Safely Taking and Storing Medications -- Adults, DI for Dizziness-Nonvertigo Activity Restrictions/Additional Instructions: Your TSH today is 0.8. Your orthostatic vital signs were normal. Your CBC, CMP and troponin were all normal. Please take your medications appropriately at home, be careful to not mix up her Wellbutrin and spironolactone. Please follow up with your primary care provider soon as possible. Please follow up with your channel process supervisor as well. I have given you a prescription for some Vistaril as needed. Come back to emergency department for any acute concerns. Prescriptions: New hydroxyzine pamoate [Vistaril] 50 mg capsule 50 mg PO TID-QID PRN (Reason: anxiety) Qty: 20 RF: 0 No Action spironolactone 100 mg tablet 100 mg PO BID PRN (Reason: as directed) RF: 0 bupropion HCl 300 mg tablet extended release 24 hr 300 mg PO DAILY RF: 0 thyroid (pork) [[place] Thyroid] 30 mg tablet 75 mg PO DAILY RF: 0 multivitamin Tablet 1 tab PO DAILY RF: 0 cholecalciferol (vitamin D3) [Vitamin D3] 5,000 unit Tablet 5,000 unit PO WEEKLY RF: 0 Referrals: [facility] [Provider Group] <Kiana Womack, - Last Filed: 12/13/18 10:14> Cosign ED Attending Ciro Attestation: I was immediately available in the department for consultation. Documentation has been reviewed. I agree with assessment and plan.
[2018-12-11 13:21] LABS: Alanine Aminotransferase 33 IU/L (9-52); Albumin 4.5 g/dL (3.5-5.0); Albumin Globulin Ratio 1.7 (1.0-2.8); Alkaline Phosphatase 55 U/L (38-126); Aspartate Aminotransferase 30 IU/L (14-36); BUN Creatinine Ratio 25.6 (6-22); Bilirubin Total 1.4 mg/dL (0.2-1.3); Blood Urea Nitrogen 23 mg/dL (7-17); Calcium 9.5 mg/dL (8.4-10.2); Carbon Dioxide 29 mmol/L (22-32); Chloride 99 mmol/L (98-107); Estimated Glomerular Filt Rate > 60.0 mL/min (>60); Globulin 2.7 g/dL (1.7-4.1); Glucose 81 mg/dL (70-100); HEMOLYSIS < 15 (0-50); Potassium 3.8 mmol/L (3.4-5.1); Sodium 138 mmol/L (137-145); Total Protein 7.2 g/dL (6.3-8.2)
[2018-12-11 13:25] VITALS: BP 95/76; PULSE 68; RESP 12; O2SAT 100
[2018-12-11] MEDS: SODIUM CHLORIDE 0.9% 1,000 ML 1000 ML IV (14:04)
[2018-12-11 14:14] VITALS: BP 92/52; PULSE 62; RESP 17; O2SAT 98
[2018-12-11 14:44] LABS: Creatine Kinase 122 U/L (30-135)
[2018-12-11 14:57] LABS: Troponin I < 0.012 ng/mL (0.01-0.034)
[2018-12-11 14:59] LABS: CKMB % Relative Index 1.2 % (1.5-5.0); Creatine Kinase MB 1.49 ng/mL (<2.37)
[2018-12-11 15:23] VITALS: BP 102/67; BP 92/63; BP 94/66; PULSE 60; PULSE 77; PULSE 83
[2018-12-11 15:30] VITALS: BP 92/63; PULSE 63; RESP 18; O2SAT 100
[2018-12-11 16:05] VITALS: BP 94/58; PULSE 61; RESP 14; O2SAT 98
== END 2018-12-11 16:29 | disposition home or self-care (01) ==
PROVIDERS: Emergency Provider Nurse Practitioner Family
DX: R42 Dizziness and giddiness (principal); R00.0 Tachycardia, unspecified; T50.901A Poisoning by unspecified drugs, medicaments and biological substances, accidental (unintentional), initial encounter
CPT/HCPCS: 36591; 80053; 81003; 81025; 82550; 82553; 84443; 84484; 85025; 93005; 96360; 99283; 99284

== ENCOUNTER 2019-05-01 02:08 | Emergency (ER) | payer OTHER, SELFPAY ==
[2019-05-01] VITALS (10 sets, daily range): BP systolic 83–111; BP diastolic 49–83; PULSE 70–106; RESP 14–30; TEMP 36.9–38.3; O2SAT 75–100
--- NOTE | 2019-05-01 02:10 | DI.CT.S_ITS ---
PROCEDURE: CT HEAD/BRAIN WO CON INDICATIONS: fever, headache, mental status change TECHNIQUE: Noncontrast 4.5 mm thick angled axial sections acquired from the foramen magnum to the vertex, with coronal and sagittal reformats. For radiation dose reduction, the following was used: automated exposure control, adjustment of mA and/or kV according to patient size. COMPARISON: None. FINDINGS: Image quality: Excellent. CSF spaces: Basal cisterns are patent. No extra-axial fluid collections. Ventricles are normal in size and shape. Brain: No midline shift. No intracranial masses or hemorrhage. [place]-white matter interface is normal. Skull and face: Calvarium and visualized facial bones are intact, without suspicious lesions. Sinuses: Visualized sinuses demonstrate minimal left maxillary mucosal thickening. IMPRESSION: 1. No acute intracranial process. Dictated by: Dede Green M.D. on 05/01/2019 at 7:41 Approved by: Dede Green M.D. on 05/01/2019 at 7:42
--- NOTE | 2019-05-01 02:16 | ED.AMS ---
HPI - Altered Mental Status General Chief Complaint: Altered Mental Status Stated Complaint: Altered LOC/ fever Time Seen by Provider: 05/01/19 02:10 Source: patient and EMS Mode of arrival: EMS History of Present Illness HPI narrative: 48-year-old nonsmoker with history of hypothyroid presents by EMS for evaluation of fever as high as 103, worst headache of her life, neck pain and mental status change that set in this evening. She was in her normal state of health until found speaking gibberish in her bathroom by her daughter. The symptoms lasted an hour to when they called a family friend who came to visit and immediately called EMS noting something was clearly not right. The patient is normally quite healthy and recently competed in a [employer] competition in [place]. She is a nurse practitioner and a local assisted Related Data Home Medications Medication Instructions Recorded Confirmed bupropion HCl 300 mg PO DAILY 12/11/18 12/11/18 cholecalciferol (vitamin D3) 5,000 unit PO WEEKLY 12/11/18 12/11/18 [Vitamin D3] multivitamin 1 tab PO DAILY 12/11/18 12/11/18 spironolactone 100 mg PO BID PRN 12/11/18 12/11/18 thyroid (pork) [[place] Thyroid] 75 mg PO DAILY 12/11/18 12/11/18 spironolactone 100 mg PO BID 05/01/19 05/01/19 thyroid (pork) [[place] Thyroid] 60 mg PO DAILY 05/01/19 05/01/19 Previous Rx's Medication Instructions Recorded hydroxyzine pamoate [Vistaril] 50 mg PO TID-QID PRN #20 cap 12/11/18 Allergies Allergy/AdvReac Type Severity Reaction Status Date / Time benzonatate Allergy Unknown AIRWAY Verified 12/11/18 11:02 [From TESSALON PERLES] CONSTRICTION prochlorperazine Allergy Unknown ANXIETY Verified 12/11/18 11:02 [From COMPAZINE] promethazine [From PHENERGAN] Allergy Unknown UNKNOWN Verified 12/11/18 11:02 Review of Systems Constitutional Reports chills, Reports fever(s), Reports headache(s), Denies lethargy and Denies weakness Eyes Denies change in vision, Denies eye discharge, Denies irritation and Denies loss of vision ENT Ears, Nose, Mouth, and Throat: Denies change in voice, Reports headache(s), Denies neck pain and Denies sore throat Cardiovascular Denies chest pain, Denies irregular heart rhythm, Denies lightheadedness, Denies palpitations, Denies dyspnea, Denies dyspnea on exertion and Denies orthopnea Respiratory Denies cough, Denies dyspnea, Denies dyspnea on exertion and Denies wheezing Gastrointestinal Gastrointestinal: Denies abdominal pain, Denies change in bowel habits, Denies diarrhea, Denies nausea and Denies vomiting Genitourinary Denies hematuria, Denies flank pain, Denies urinary incontinence and Denies urinary urgency Musculoskeletal Denies neck pain Integumentary/Breasts Denies pruritus, Denies erythema, Denies rash and Denies wounds Neurologic Reports confusion, Reports headache(s), Denies loss of vision and Denies weakness Psychiatric Denies anxiety, Reports confusion, Denies depression, Denies homicidal ideation and Denies suicidal ideation Endocrine Denies palpitations Hematologic/Lymphatic Denies easy bruising Allergic/Immunologic Denies wheezing Exam Narrative Exam Narrative: GENERAL: [48-year-old] patient appears stated age. Well-nourished, well-developed patient, in severe distress, rocking back and forth on the cart rubbing her head, crying, attempting to speak but unable to communicate clearly HEAD: Atraumatic. Normocephalic. EYES: Pupils equal round and reactive. Extraocular motions intact. No scleral icterus. No injection or drainage. ENT: Nose without bleeding, purulent drainage. Throat without erythema, tonsillar hypertrophy or exudate. Airway patent. NECK: Trachea midline. Tender neck CARDIOVASCULAR: Regular rate and rhythm without murmurs, gallops, or rubs. RESPIRATORY: Clear to auscultation. Breath sounds equal bilaterally. No wheezes, rales, or rhonchi. GASTROINTESTINAL: Abdomen soft, non-tender, nondistended. EXTREMITIES: No edema or joint tenderness. BACK: Nontender without deformity or crepitance. No flank tenderness. SKIN: No rash or erythema of visible areas Initial Vital Signs Initial Vital Signs: Vital Signs Temperature 100.9 F H 05/01/19 02:09 Pulse Rate 106 H 05/01/19 02:09 Respiratory Rate 30 H 05/01/19 02:09 Blood Pressure 111/61 05/01/19 02:09 Pulse Oximetry 100 05/01/19 02:09 Procedures Lumbar Puncture Time Out Performed: Yes Patient Position: upright Skin Prep: 0.5% Chlorhexidine/Alcohol Local Anesthetic: lidocaine 1% Amount of anesthesia used (mL): 3 Spinal Needle Gauge: 22G Interspace Used: L4-L5 Fluid Initially Obtained: clear Complications: none Course Course Narrative: Pippa Hernandez is with patient whom verifies that patient is part of the decision making democrat should any adverse outcomes occur Orders Ordered: Discontinued Medications Ceftriaxone Sodium/Dextrose (Rocephin) 2 gm in 50 mls @ 100 mls/hr IV NOW ONE Stop: 05/01/19 02:40 Last Infusion: 05/01/19 03:35 Dose: 0 mls/hr Admin: 05/01/19 02:59 Dose: 100 mls/hr Vancomycin HCl/Dextrose (Vancomycin) 1,500 mg in 300 mls @ 200 mls/hr IV NOW ONE Stop: 05/01/19 03:40 Last Infusion: 05/01/19 04:29 Dose: 0 mls/hr Admin: 05/01/19 02:59 Dose: 200 mls/hr Sodium Chloride (Normal Saline 0.9%) 1,000 mls @ 1,000 mls/hr IV BOLUS ONE Stop: 05/01/19 03:09 Last Infusion: 05/01/19 03:36 Dose: 0 mls/hr Admin: 05/01/19 02:59 Dose: 1,000 mls/hr Sodium Chloride (Normal Saline 0.9%) 1,000 mls @ 1,000 mls/hr IV BOLUS ONE Stop: 05/01/19 04:58 Last Infusion: 05/01/19 05:16 Dose: 0 mls/hr Admin: 05/01/19 04:06 Dose: 1,000 mls/hr Acyclovir 580 mg/ Dextrose 100 mls @ 100 mls/hr IV NOW ONE Stop: 05/01/19 04:22 Last Infusion: 05/01/19 06:17 Dose: 0 mls/hr Admin: 05/01/19 04:55 Dose: 100 mls/hr Sodium Chloride (Normal Saline 0.9%) 1,000 mls @ 150 mls/hr IV CONT FEDE Last Infusion: 05/01/19 09:33 Dose: 150 mls/hr Admin: 05/01/19 07:51 Dose: 150 mls/hr Ketorolac Tromethamine (Toradol) 15 mg IV NOW ONE Stop: 05/01/19 02:11 Last Admin: 05/01/19 02:58 Dose: 15 mg Ketorolac Tromethamine (Toradol) 15 mg IV NOW ONE Stop: 05/01/19 05:42 Last Admin: 05/01/19 05:46 Dose: 15 mg Ketorolac Tromethamine (Toradol) 15 mg IV NOW ONE Stop: 05/01/19 09:17 Last Admin: 05/01/19 09:21 Dose: 15 mg Ondansetron HCl (Zofran) 4 mg IV Q4HR PRN PRN Reason: Nausea And Vomiting Last Admin: 05/01/19 05:45 Dose: 4 mg Ondansetron HCl (Zofran) 4 mg IV NOW ONE Stop: 05/01/19 05:43 Last Admin: 05/01/19 05:46 Dose: Not Given Consultations Consultation #1: call to Neuro at [facility], happy with consultation, recommends admit to hospitalist. Add TSH/T4, CK Vital Signs - 8 hr 05/01/19 02:09 05/01/19 02:30 05/01/19 02:54 Temperature 100.9 F H Pulse Rate 106 H 74 92 H Respiratory Rate 30 H 16 16 Blood Pressure 111/61 Blood Pressure [Right Arm] 89/62 L 90/52 L Pulse Oximetry 100 98 99 05/01/19 03:30 Temperature 100.4 F H Pulse Rate 80 Respiratory Rate 16 Blood Pressure Blood Pressure [Right Arm] 87/52 L Pulse Oximetry 97 MDM - Altered Mental Status Differential Diagnosis Likely altered mental status Lab Data Result diagrams: 05/01/19 02:30 05/01/19 02:30 Lab Results 05/01/19 05/01/19 05/01/19 Range/Units 02:30 02:30 02:30 WBC 3.1 L (4.5-11.0) X10^3/uL RBC 4.14 (4.0-5.2) X10^6/uL Hgb 13.8 (12.0-16.0) g/dL Hct 38.7 (36-46) % MCV 93.6 (80-100) fL MCH 33.3 (26-34) PG MCHC 35.6 (30-36) % RDW 12.9 (11.6-14.8) % Plt Count 167 (150-400) X10^3/uL Neut % (Auto) Not Reportable Lymph % (Auto) Not Reportable [place] % (Auto) Not Reportable Eos % (Auto) Not Reportable Baso % (Auto) Not Reportable Lymph # (Auto) Not Reportable [place] # (Auto) Not Reportable Baso # (Auto) Not Reportable Total Counted 100 Seg Neutrophils % 90.0 H (38-70) % Band Neutrophils % 5.0 (3-7) % Lymphocytes % (Manual) 5.0 L (25-45) % Neutrophils # (Manual) 2945 L (1046-3211) /uL RBC Morphology Normal morphology Sodium 141 (137-145) mmol/L Potassium 3.3 L (3.4-5.1) mmol/L Chloride 107 (98-107) mmol/L Carbon Dioxide 25 (22-32) mmol/L BUN 21 H (7-17) mg/dL Creatinine 1.00 (0.52-1.04) mg/dL Estimated GFR 58.9 L (>60) mL/min BUN/Creatinine Ratio 21.0 (6-22) Glucose 113 H (70-100) mg/dL Lactate 1.4 (0.7-2.1) mmol/L Calcium 8.8 (8.4-10.2) mg/dL Total Creatine Kinase (30-135) U/L TSH (0.47-4.68) uIU/mL Thyroxine (T4) (5.5-11.0) ug/dL CSF Tube Number CSF Volume CSF Appearance (Clear) CSF Color (Colorless) CSF WBC (0-5) MONO/uL CSF RBC RBC /uL CSF Mononuclear WBCs CSF Polynuclear WBCs CSF Glucose (40-70) mg/dL CSF Total Protein (12-60) mg/dL CSF C.neoform/gat PCR (Not Detect) CSF CMV DNA (PCR) (Not Detect) CSF Enterovirus (PCR) (Not Detect) CSF E. coli (PCR) (Not Detect) CSF H. influenzae (PCR) (Not Detect) CSF HSV I (PCR) (Not Detect) CSF HSV II (PCR) (Not Detect) CSF HHV 6 (PCR) (Not Detect) CSF L.monocytogenes PCR (Not Detect) CSF N. meningitidis PCR (Not Detect) CSF Parechovirus (PCR) (Not Detect) CSF S. agalactiae (PCR) (Not Detect) CSF S. pneumoniae (PCR) (Not Detect) CSF VZV (PCR) Urine Opiates Screen (Negative) Ur Oxycodone Screen (Negative) Urine Methadone Screen (Negative) Ur Barbiturates Screen (Negative) U Tricyclic Antidepress (Negative) Ur Phencyclidine Scrn (Negative) Ur Amphetamines Screen (Negative) U Methamphetamines Scrn (Negative) Ur MDMA Scrn (Ecstasy) (Negative) U Benzodiazepines Scrn (Negative) Urine Cocaine Screen (Negative) U Marijuana (THC) Screen (Negative) Influenza A & B (PCR) (Negative) 05/01/19 05/01/19 05/01/19 Range/Units 02:30 02:30 03:25 WBC (4.5-11.0) X10^3/uL RBC (4.0-5.2) X10^6/uL Hgb (12.0-16.0) g/dL Hct (36-46) % MCV (80-100) fL MCH (26-34) PG MCHC (30-36) % RDW (11.6-14.8) % Plt Count (150-400) X10^3/uL Neut % (Auto) Lymph % (Auto) [place] % (Auto) Eos % (Auto) Baso % (Auto) Lymph # (Auto) [place] # (Auto) Baso # (Auto) Total Counted Seg Neutrophils % (38-70) % Band Neutrophils % (3-7) % Lymphocytes % (Manual) (25-45) % Neutrophils # (Manual) (7692-5291) /uL RBC Morphology Sodium (137-145) mmol/L Potassium (3.4-5.1) mmol/L Chloride (98-107) mmol/L Carbon Dioxide (22-32) mmol/L BUN (7-17) mg/dL Creatinine (0.52-1.04) mg/dL Estimated GFR (>60) mL/min BUN/Creatinine Ratio (6-22) Glucose (70-100) mg/dL Lactate (0.7-2.1) mmol/L Calcium (8.4-10.2) mg/dL Total Creatine Kinase 386 H (30-135) U/L TSH 3.54 (0.47-4.68) uIU/mL Thyroxine (T4) 4.77 L (5.5-11.0) ug/dL CSF Tube Number 3 CSF Volume 0.5 ml CSF Appearance Clear (Clear) CSF Color Colorless (Colorless) CSF WBC 0 (0-5) MONO/uL CSF RBC 1 RBC /uL CSF Mononuclear WBCs Not Reportable CSF Polynuclear WBCs Not Reportable CSF Glucose 49 (40-70) mg/dL CSF Total Protein 41 (12-60) mg/dL CSF C.neoform/gat PCR (Not Detect) CSF CMV DNA (PCR) (Not Detect) CSF Enterovirus (PCR) (Not Detect) CSF E. coli (PCR) (Not Detect) CSF H. influenzae (PCR) (Not Detect) CSF HSV I (PCR) (Not Detect) CSF HSV II (PCR) (Not Detect) CSF HHV 6 (PCR) (Not Detect) CSF L.monocytogenes PCR (Not Detect) CSF N. meningitidis PCR (Not Detect) CSF Parechovirus (PCR) (Not Detect) CSF S. agalactiae (PCR) (Not Detect) CSF S. pneumoniae (PCR) (Not Detect) CSF VZV (PCR) Urine Opiates Screen (Negative) Ur Oxycodone Screen (Negative) Urine Methadone Screen (Negative) Ur Barbiturates Screen (Negative) U Tricyclic Antidepress (Negative) Ur Phencyclidine Scrn (Negative) Ur Amphetamines Screen (Negative) U Methamphetamines Scrn (Negative) Ur MDMA Scrn (Ecstasy) (Negative) U Benzodiazepines Scrn (Negative) Urine Cocaine Screen (Negative) U Marijuana (THC) Screen (Negative) Influenza A & B (PCR) (Negative) 05/01/19 05/01/19 05/01/19 Range/Units 03:25 03:52 05:56 WBC (4.5-11.0) X10^3/uL RBC (4.0-5.2) X10^6/uL Hgb (12.0-16.0) g/dL Hct (36-46) % MCV (80-100) fL MCH (26-34) PG MCHC (30-36) % RDW (11.6-14.8) % Plt Count (150-400) X10^3/uL Neut % (Auto) Lymph % (Auto) [place] % (Auto) Eos % (Auto) Baso % (Auto) Lymph # (Auto) [place] # (Auto) Baso # (Auto) Total Counted Seg Neutrophils % (38-70) % Band Neutrophils % (3-7) % Lymphocytes % (Manual) (25-45) % Neutrophils # (Manual) ([id number]) /uL RBC Morphology Sodium (137-145) mmol/L Potassium (3.4-5.1) mmol/L Chloride (98-107) mmol/L Carbon Dioxide (22-32) mmol/L BUN (7-17) mg/dL Creatinine (0.52-1.04) mg/dL Estimated GFR (>60) mL/min BUN/Creatinine Ratio (6-22) Glucose (70-100) mg/dL Lactate (0.7-2.1) mmol/L Calcium (8.4-10.2) mg/dL Total Creatine Kinase (30-135) U/L TSH (0.47-4.68) uIU/mL Thyroxine (T4) (5.5-11.0) ug/dL CSF Tube Number CSF Volume CSF Appearance (Clear) CSF Color (Colorless) CSF WBC (0-5) MONO/uL CSF RBC RBC /uL CSF Mononuclear WBCs CSF Polynuclear WBCs CSF Glucose (40-70) mg/dL CSF Total Protein (12-60) mg/dL CSF C.neoform/gat PCR Not detected (Not Detect) CSF CMV DNA (PCR) Not detected (Not Detect) CSF Enterovirus (PCR) Not detected (Not Detect) CSF E. coli (PCR) Not detected (Not Detect) CSF H. influenzae (PCR) Not detected (Not Detect) CSF HSV I (PCR) Not detected (Not Detect) CSF HSV II (PCR) Not detected (Not Detect) CSF HHV 6 (PCR) Not detected (Not Detect) CSF L.monocytogenes PCR Not detected (Not Detect) CSF N. meningitidis PCR Not detected (Not Detect) CSF Parechovirus (PCR) Not detected (Not Detect) CSF S. agalactiae (PCR) Not detected (Not Detect) CSF S. pneumoniae (PCR) Not detected (Not Detect) CSF VZV (PCR) Not detected Urine Opiates Screen Negative (Negative) Ur Oxycodone Screen Negative (Negative) Urine Methadone Screen Negative (Negative) Ur Barbiturates Screen Negative (Negative) U Tricyclic Antidepress Negative (Negative) Ur Phencyclidine Scrn Negative (Negative) Ur Amphetamines Screen Negative (Negative) U Methamphetamines Scrn Negative (Negative) Ur MDMA Scrn (Ecstasy) Negative (Negative) U Benzodiazepines Scrn Positive H (Negative) Urine Cocaine Screen Negative (Negative) U Marijuana (THC) Screen Negative (Negative) Influenza A & B (PCR) Negative (Negative) Point of Care Testing Glucose POC [address] scan - head: Radiologist's impression: NAP Critical Care Time Critical Care Time: Yes Total Critical Care Time: 30 Attestation: The high probability of a clinically significant, sudden or life threatening deterioration of the [neuro] system(s) required my full and direct attention, intervention and personal management. The aggregate critical care time was [30] minutes. This time is in addition to time spent performing reported procedures but includes the following: [x] Data Review and interpretation [x] Patient assessment and monitoring of vital signs [x] Documentation [x] Medication orders and management Discharge Plan Departure Patient Disposition: [facility] Clinical Impression: Expressive aphasia, Encephalitis, viral Altered mental status Qualifiers: Altered mental status type: unspecified Qualified Code(s): R41.82 - Altered mental status, unspecified Discharge Date/Time: 05/01/19 09:31 Interventions: ED Discharge Assessment Last Done: 05/01/19 09:30 Prescriptions: No Action spironolactone 100 mg tablet 100 mg PO BID PRN (Reason: as directed) RF: 0 bupropion HCl 300 mg tablet extended release 24 hr 300 mg PO DAILY RF: 0 thyroid (pork) [[place] Thyroid] 30 mg tablet 75 mg PO DAILY RF: 0 multivitamin Tablet 1 tab PO DAILY RF: 0 cholecalciferol (vitamin D3) [Vitamin D3] 5,000 unit Tablet 5,000 unit PO WEEKLY RF: 0 hydroxyzine pamoate [Vistaril] 50 mg capsule 50 mg PO TID-QID PRN (Reason: anxiety) Qty: 20 RF: 0 spironolactone 100 mg tablet 100 mg PO BID RF: 0 thyroid (pork) [[place] Thyroid] 60 mg tablet 60 mg PO DAILY RF: 0
[2019-05-01 02:44] LABS: Hematocrit 38.7 % (36-46); Hemoglobin 13.8 g/dL (12.0-16.0); Mean Corpuscular HGB Conc 35.6 % (30-36); Mean Corpuscular Hemoglobin 33.3 PG (26-34); Mean Corpuscular Volume 93.6 fL (80-100); Platelet Count 167 X10^3/uL (150-400); Red Blood Cell Count 4.14 X10^6/uL (4.0-5.2); Red Cell Distribution Width 12.9 % (11.6-14.8); White Blood Cell Count 3.1 X10^3/uL (4.5-11.0)
[2019-05-01 02:47] LABS: Lactate (Lactic Acid) 1.4 mmol/L (0.7-2.1)
[2019-05-01 02:48] LABS: Add Manual Diff / Slide Review YES; Blood Urea Nitrogen 21 mg/dL (7-17); Calcium 8.8 mg/dL (8.4-10.2); Carbon Dioxide 25 mmol/L (22-32); Chloride 107 mmol/L (98-107); Estimated Glomerular Filt Rate 58.9 mL/min (>60); Glucose 113 mg/dL (70-100); HEMOLYSIS 35 (0-50); Potassium 3.3 mmol/L (3.4-5.1); Sodium 141 mmol/L (137-145)
[2019-05-01] MEDS: KETOROLAC 60 MG/2 ML VIAL 15 MG IV ×3 (02:58→09:21)
[2019-05-01] MEDS: VANCOMYCIN 1,500 MG/300 ML FROZ.PIGGY 200 MG IV (02:59)
[2019-05-01] MEDS: CEFTRIAXONE 2 GM/50 ML FROZ.PIGGY IV (02:59)
[2019-05-01] MEDS: SODIUM CHLORIDE 0.9% 1,000 ML 1000 ML IV ×2 (02:59→04:06)
[2019-05-01 03:09] LABS: Neutrophils Absolute Manual 2945 /uL (3000-5900); RBC Morphology Normal Morphology; Total Cells Counted 100
[2019-05-01 03:43] LABS: Glucose CSF 49 mg/dL (40-70); Total Protein CSF 41 mg/dL (12-60)
[2019-05-01 03:54] LABS: Appearance CSF Clear (Clear); CSF Tube Number 3; CSF Tube Volume 0.5 mL; Color CSF Colorless (Colorless); Red Blood Cell CSF 1 RBC /uL; White Blood Cell CSF 0 MONO/uL (0-5)
[2019-05-01 04:10] LABS: Urine Amphetamines Negative (Negative); Urine Barbiturates Negative (Negative); Urine Benzodiazepines Positive (Negative); Urine Cocaine Negative (Negative); Urine MDMA Negative (Negative); Urine Methadone Negative (Negative); Urine Methamphetamines Negative (Negative); Urine Morphine/Opi cutoff 2000 Negative (Negative); Urine Oxycodone Negative (Negative); Urine Phencyclidine Negative (Negative); Urine Tetrahydrocannabinol Negative (Negative); Urine Tricyclic Antidepressant Negative (Negative)
--- NOTE | 2019-05-01 04:18 | ED_ITS ---
HPI - Altered Mental Status General Chief Complaint: Altered Mental Status Stated Complaint: Altered LOC/ fever Time Seen by Provider: 05/01/19 02:10 Source: patient and EMS Mode of arrival: EMS History of Present Illness HPI narrative: 48-year-old nonsmoker with history of hypothyroid presents by EMS for evaluation of fever as high as 103, worst headache of her life, neck pain and mental status change that set in this evening. She was in her normal state of health until found speaking gibberish in her bathroom by her daughter. The s ymptoms lasted an hour to when they called a family friend who came to visit and immediately called EMS noting something was clearly not right. The patient is normally quite healthy and recently competed in a body building competition in [place]. 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 Related Data Home Medications Medication Instructions Recorded Confirmed bupropion HCl 300 mg PO DAILY 12/11/18 12/11/18 cholecalciferol (vitamin D3) 5,000 unit PO WEEKLY 12/11/18 12/11/18 [Vitamin D3] multivitamin 1 tab PO DAILY 12/11/18 12/11/18 spironolactone 100 mg PO BID PRN 12/11/18 12/11/18 thyroid (pork) [[place] Thyroid] 75 mg PO DAILY 12/11/18 12/11/18 spironolactone 100 mg PO BID 05/01/19 05/01/19 thyroid (pork) [[place] Thyroid] 60 mg PO DAILY 05/01/19 05/01/19 Previous Rx's Medication Instructions Recorded hydroxyzine pamoate [Vistaril] 50 mg PO TID-QID PRN #20 cap 12/11/18 Allergies Allergy/AdvReac Type Severity Reaction Status Date / Time benzonatate Allergy Unknown AIRWAY Verified 12/11/18 11:02 [From TESSALON PERLES] CONSTRICTION prochlorperazine Allergy Unknown ANXIETY Verified 12/11/18 11:02 [From COMPAZINE] promethazine [From PHENERGAN] Allergy Unknown UNKNOWN Verified 12/11/18 11:02 Review of Systems Constitutional Reports chills, Reports fever(s), Reports headache(s), Denies lethargy and Denies weakness Eyes Denies change in vision, Denies eye discharge, Denies irritation and Denies loss of vision ENT Ears, Nose, Mouth, and Throat: Denies change in voice, Reports headache(s), Denies neck pain and Denies sore throat Cardiovascular Denies chest pain, Denies irregular heart rhythm, Denies lightheadedness, Denies palpitations, Denies dyspnea, Denies dyspnea on exertion and Denies orthopnea Respiratory Denies cough, Denies dyspnea, Denies dyspnea on exertion and Denies wheezing Gastrointestinal Gastrointestinal: Denies abdominal pain, Denies change in bowel habits, Denies diarrhea, Denies nausea and Denies vomiting Genitourinary Denies hematuria, Denies flank pain, Denies urinary incontinence and Denies urinary urgency Musculoskeletal Denies neck pain Integumentary/Breasts Denies pruritus, Denies erythema, Denies rash and Denies wounds Neurologic Reports confusion, Reports headache(s), Denies loss of vision and Denies weakness Psychiatric Denies anxiety, Reports confusion, Denies depression, Denies homicidal ideation and Denies suicidal ideation Endocrine Denies palpitations Hematologic/Lymphatic Denies easy bruising Allergic/Immunologic Denies wheezing Exam Narrative Exam Narrative: GENERAL: [48-year-old] patient appears stated age. Well- nourished, well-developed patient, in severe distress, rocking back and forth on the cart rubbing her head, crying, attempting to speak but unable to communicate clearly HEAD: Atraumatic. Normocephalic. EYES: Pupils equal round and reactive. Extraocular motions intact. No scleral icterus. No injection or drainage. ENT: Nose without bleeding, purulent drainage. Throat without erythema, tonsillar hypertrophy or exudate. Airway patent. NECK: Trachea midline. Tender neck CARDIOVASCULAR: Regular rate and rhythm without murmurs, gallops, or rubs. RESPIRATORY: Clear to auscultation. Breath sounds equal bilaterally. No wheezes, rales, or rhonchi. GASTROINTESTINAL: Abdomen soft, non-tender, nondistended. EXTREMITIES: No edema or joint tenderness. BACK: Nontender without deformity or crepitance. No flank tenderness. SKIN: No rash or erythema of visible areas Initial Vital Signs Initial Vital Signs: Vital Signs Temperature 100.9 F H 05/01/19 02:09 Pulse Rate 106 H 05/01/19 02:09 Respiratory Rate 30 H 05/01/19 02:09 Blood Pressure 111/61 05/01/19 02:09 Pulse Oximetry 100 05/01/19 02:09 Procedures Lumbar Puncture Time Out Performed: Yes Patient Position: upright Skin Prep: 0.5% Chlorhexidine/Alcohol Local Anesthetic: lidocaine 1% Amount of anesthesia used (mL): 3 Spinal Needle Gauge: 22G Interspace Used: L4-L5 Fluid Initially Obtained: clear Complications: none Course Course Narrative: Pippa Hernandez is with patient whom verifies that patient is part of the decision making green party should any adverse outcomes occur Orders Ordered: Discontinued Medications Ceftriaxone Sodium/Dextrose (Rocephin) 2 gm in 50 mls @ 100 mls/hr IV NOW ONE Stop: 05/01/19 02:40 Last Infusion: 05/01/19 03:35 Dose: 0 mls/hr Admin: 05/01/19 02:59 Dose: 100 mls/hr Vancomycin HCl/Dextrose (Vancomycin) 1,500 mg in 300 mls @ 200 mls/hr IV NOW ONE Stop: 05/01/19 03:40 Last Infusion: 05/01/19 04:29 Dose: 0 mls/hr Admin: 05/01/19 02:59 Dose: 200 mls/hr Sodium Chloride (Normal Saline 0.9%) 1,000 mls @ 1,000 mls/hr IV BOLUS ONE Stop: 05/01/19 03:09 Last Infusion: 05/01/19 03:36 Dose: 0 mls/hr Admin: 05/01/19 02:59 Dose: 1,000 mls/hr Sodium Chloride (Normal Saline 0.9%) 1,000 mls @ 1,000 mls/hr IV BOLUS ONE Stop: 05/01/19 04:58 Last Infusion: 05/01/19 05:16 Dose: 0 mls/hr Admin: 05/01/19 04:06 Dose: 1,000 mls/hr Acyclovir 580 mg/ Dextrose 100 mls @ 100 mls/hr IV NOW ONE Stop: 05/01/19 04:22 Last Infusion: 05/01/19 06:17 Dose: 0 mls/hr Admin: 05/01/19 04:55 Dose: 100 mls/hr Sodium Chloride (Normal Saline 0.9%) 1,000 mls @ 150 mls/hr IV CONT FEDE Last Infusion: 05/01/19 09:33 Dose: 150 mls/hr Admin: 05/01/19 07:51 Dose: 150 mls/hr Ketorolac Tromethamine (Toradol) 15 mg IV NOW ONE Stop: 05/01/19 02:11 Last Admin: 05/01/19 02:58 Dose: 15 mg Ketorolac Tromethamine (Toradol) 15 mg IV NOW ONE Stop: 05/01/19 05:42 Last Admin: 05/01/19 05:46 Dose: 15 mg Ketorolac Tromethamine (Toradol) 15 mg IV NOW ONE Stop: 05/01/19 09:17 Last Admin: 05/01/19 09:21 Dose: 15 mg Ondansetron HCl (Zofran) 4 mg IV Q4HR PRN PRN Reason: Nausea And Vomiting Last Admin: 05/01/19 05:45 Dose: 4 mg Ondansetron HCl (Zofran) 4 mg IV NOW ONE Stop: 05/01/19 05:43 Last Admin: 05/01/19 05:46 Dose: Not Given Consultations Consultation #1: call to Neuro at [facility], happy with consultation, recommends admit to hospitalist. Add TSH/T4, CK Vital Signs - 8 hr 05/01/19 02:09 05/01/19 02:30 05/01/19 02:54 Temperature 100.9 F H Pulse Rate 106 H 74 92 H Respiratory Rate 30 H 16 16 Blood Pressure 111/61 Blood Pressure [Right Arm] 89/62 L 90/52 L Pulse Oximetry 100 98 99 05/01/19 03:30 Temperature 100.4 F H Pulse Rate 80 Respiratory Rate 16 Blood Pressure Blood Pressure [Right Arm] 87/52 L Pulse Oximetry 97 MDM - Altered Mental Status Differential Diagnosis Likely altered mental status Lab Data Result diagrams: 05/01/19 02:30 05/01/19 02:30 Lab Results 05/01/19 05/01/19 05/01/19 Range/Units 02:30 02:30 02:30 WBC 3.1 L (4.5-11.0) X10^3/uL RBC 4.14 (4.0-5.2) X10^6/uL Hgb 13.8 (12.0-16.0) g/dL Hct 38.7 (36-46) % MCV 93.6 (80-100) fL MCH 33.3 (26-34) PG MCHC 35.6 (30-36) % RDW 12.9 (11.6-14.8) % Plt Count 167 (150-400) X10^3/uL Neut % (Auto) Not Reportable Lymph % (Auto) Not Reportable Potter % (Auto) Not Reportable Eos % (Auto) Not Reportable Baso % (Auto) Not Reportable Lymph # (Auto) Not Reportable Potter # (Auto) Not Reportable Baso # (Auto) Not Reportable Total Counted 100 Seg Neutrophils % 90.0 H (38-70) % Band Neutrophils % 5.0 (3-7) % Lymphocytes % (Manual) 5.0 L (25-45) % Neutrophils # (Manual) 2945 L (9974-0023) /uL RBC Morphology Normal morphology Sodium 141 (137-145) mmol/L Potassium 3.3 L (3.4-5.1) mmol/L Chloride 107 (98-107) mmol/L Carbon Dioxide 25 (22-32) mmol/L BUN 21 H (7-17) mg/dL Creatinine 1.00 (0.52-1.04) mg/dL Estimated GFR 58.9 L (>60) mL/min BUN/Creatinine Ratio 21.0 (6-22) Glucose 113 H (70-100) mg/dL Lactate 1.4 (0.7-2.1) mmol/L Calcium 8.8 (8.4-10.2) mg/dL Total Creatine Kinase (30-135) U/L TSH (0.47-4.68) uIU/mL Thyroxine (T4) (5.5-11.0) ug/dL CSF Tube Number CSF Volume CSF Appearance (Clear) CSF Color (Colorless) CSF WBC (0-5) MONO/uL CSF RBC RBC /uL CSF Mononuclear WBCs CSF Polynuclear WBCs CSF Glucose (40-70) mg/dL CSF Total Protein (12-60) mg/dL CSF C.neoform/gat PCR (Not Detect) CSF CMV DNA (PCR) (Not Detect) CSF Enterovirus (PCR) (Not Detect) CSF E. coli (PCR) (Not Detect) CSF H. influenzae (PCR) (Not Detect) CSF HSV I (PCR) (Not Detect) CSF HSV II (PCR) (Not Detect) CSF HHV 6 (PCR) (Not Detect) CSF L.monocytogenes PCR (Not Detect) CSF N. meningitidis PCR (Not Detect) CSF Parechovirus (PCR) (Not Detect) CSF S. agalactiae (PCR) (Not Detect) CSF S. pneumoniae (PCR) (Not Detect) CSF VZV (PCR) Urine Opiates Screen (Negative) Ur Oxycodone Screen (Negative) Urine Methadone Screen (Negative) Ur Barbiturates Screen (Negative) U Tricyclic Antidepress (Negative) Ur Phencyclidine Scrn (Negative) Ur Amphetamines Screen (Negative) U Methamphetamines Scrn (Negative) Ur MDMA Scrn (Ecstasy) (Negative) U Benzodiazepines Scrn (Negative) Urine Cocaine Screen (Negative) U Marijuana (THC) Screen (Negative) Influenza A & B (PCR) (Negative) 05/01/19 05/01/19 05/01/19 Range/Units 02:30 02:30 03:25 WBC (4.5-11.0) X10^3/uL RBC (4.0-5.2) X10^6/uL Hgb (12.0-16.0) g/dL Hct (36-46) % MCV (80-100) fL MCH (26-34) PG MCHC (30-36) % RDW (11.6-14.8) % Plt Count (150-400) X10^3/uL Neut % (Auto) Lymph % (Auto) Potter % (Auto) Eos % (Auto) Baso % (Auto) Lymph # (Auto) Potter # (Auto) Baso # (Auto) Total Counted Seg Neutrophils % (38-70) % Band Neutrophils % (3-7) % Lymphocytes % (Manual) (25-45) % Neutrophils # (Manual) (3331-3800) /uL RBC Morphology Sodium (137-145) mmol/L Potassium (3.4-5.1) mmol/L Chloride (98-107) mmol/L Carbon Dioxide (22-32) mmol/L BUN (7-17) mg/dL Creatinine (0.52-1.04) mg/dL Estimated GFR (>60) mL/min BUN/Creatinine Ratio (6-22) Glucose (70-100) mg/dL Lactate (0.7-2.1) mmol/L Calcium (8.4-10.2) mg/dL Total Creatine Kinase 386 H (30-135) U/L TSH 3.54 (0.47-4.68) uIU/mL Thyroxine (T4) 4.77 L (5.5-11.0) ug/dL CSF Tube Number 3 CSF Volume 0.5 ml CSF Appearance Clear (Clear) CSF Color Colorless (Colorless) CSF WBC 0 (0-5) MONO/uL CSF RBC 1 RBC /uL CSF Mononuclear WBCs Not Reportable CSF Polynuclear WBCs Not Reportable CSF Glucose 49 (40-70) mg/dL CSF Total Protein 41 (12-60) mg/dL CSF C.neoform/gat PCR (Not Detect) CSF CMV DNA (PCR) (Not Detect) CSF Enterovirus (PCR) (Not Detect) CSF E. coli (PCR) (Not Detect) CSF H. influenzae (PCR) (Not Detect) CSF HSV I (PCR) (Not Detect) CSF HSV II (PCR) (Not Detect) CSF HHV 6 (PCR) (Not Detect) CSF L.monocytogenes PCR (Not Detect) CSF N. meningitidis PCR (Not Detect) CSF Parechovirus (PCR) (Not Detect) CSF S. agalactiae (PCR) (Not Detect) CSF S. pneumoniae (PCR) (Not Detect) CSF VZV (PCR) Urine Opiates Screen (Negative) Ur Oxycodone Screen (Negative) Urine Methadone Screen (Negative) Ur Barbiturates Screen (Negative) U Tricyclic Antidepress (Negative) Ur Phencyclidine Scrn (Negative) Ur Amphetamines Screen (Negative) U Methamphetamines Scrn (Negative) Ur MDMA Scrn (Ecstasy) (Negative) U Benzodiazepines Scrn (Negative) Urine Cocaine Screen (Negative) U Marijuana (THC) Screen (Negative) Influenza A & B (PCR) (Negative) 05/01/19 05/01/19 05/01/19 Range/Units 03:25 03:52 05:56 WBC (4.5-11.0) X10^3/uL RBC (4.0-5.2) X10^6/uL Hgb (12.0-16.0) g/dL Hct (36-46) % MCV (80-100) fL MCH (26-34) PG MCHC (30-36) % RDW (11.6-14.8) % Plt Count (150-400) X10^3/uL Neut % (Auto) Lymph % (Auto) Potter % (Auto) Eos % (Auto) Baso % (Auto) Lymph # (Auto) Potter # (Auto) Baso # (Auto) Total Counted Seg Neutrophils % (38-70) % Band Neutrophils % (3-7) % Lymphocytes % (Manual) (25-45) % Neutrophils # (Manual) (9992-6405) /uL RBC Morphology Sodium (137-145) mmol/L Potassium (3.4-5.1) mmol/L Chloride (98-107) mmol/L Carbon Dioxide (22-32) mmol/L BUN (7-17) mg/dL Creatinine (0.52-1.04) mg/dL Estimated GFR (>60) mL/min BUN/Creatinine Ratio (6-22) Glucose (70-100) mg/dL Lactate (0.7-2.1) mmol/L Calcium (8.4-10.2) mg/dL Total Creatine Kinase (30-135) U/L TSH (0.47-4.68) uIU/mL Thyroxine (T4) (5.5-11.0) ug/dL CSF Tube Number CSF Volume CSF Appearance (Clear) CSF Color (Colorless) CSF WBC (0-5) MONO/uL CSF RBC RBC /uL CSF Mononuclear WBCs CSF Polynuclear WBCs CSF Glucose (40-70) mg/dL CSF Total Protein (12-60) mg/dL CSF C.neoform/gat PCR Not detected (Not Detect) CSF CMV DNA (PCR) Not detected (Not Detect) CSF Enterovirus (PCR) Not detected (Not Detect) CSF E. coli (PCR) Not detected (Not Detect) CSF H. influenzae (PCR) Not detected (Not Detect) CSF HSV I (PCR) Not detected (Not Detect) CSF HSV II (PCR) Not detected (Not Detect) CSF HHV 6 (PCR) Not detected (Not Detect) CSF L.monocytogenes PCR Not detected (Not Detect) CSF N. meningitidis PCR Not detected (Not Detect) CSF Parechovirus (PCR) Not detected (Not Detect) CSF S. agalactiae (PCR) Not detected (Not Detect) CSF S. pneumoniae (PCR) Not detected (Not Detect) CSF VZV (PCR) Not detected Urine Opiates Screen Negative (Negative) Ur Oxycodone Screen Negative (Negative) Urine Methadone Screen Negative (Negative) Ur Barbiturates Screen Negative (Negative) U Tricyclic Antidepress Negative (Negative) Ur Phencyclidine Scrn Negative (Negative) Ur Amphetamines Screen Negative (Negative) U Methamphetamines Scrn Negative (Negative) Ur MDMA Scrn (Ecstasy) Negative (Negative) U Benzodiazepines Scrn Positive H (Negative) Urine Cocaine Screen Negative (Negative) U Marijuana (THC) Screen Negative (Negative) Influenza A & B (PCR) Negative (Negative) Point of Care Testing Glucose POC [address] scan - head: Radiologist's impression: NAP Critical Care Time Critical Care Time: Yes Total Critical Care Time: 30 Attestation: The high probability of a clinically significant, sudden or life threatening deterioration of the [neuro] system(s) required my full and direct attention, intervention and personal management. The aggregate critical care time was [30] minutes. This time is in addition to time spent performing reported procedures but includes the following: [x] Data Review and interpretation [x] Patient assessment and monitoring of vital signs [x] Documentation [x] Medication orders and management Discharge Plan Departure Patient Disposition: [facility] Clinical Impression: Expressive aphasia, Encephalitis, viral Altered mental status Qualifiers: Altered mental status type: unspecified Qualified Code(s): R41.82 - Altered mental status, unspecified Discharge Date/Time: 05/01/19 09:31 Interventions: ED Discharge Assessment Last Done: 05/01/19 09:30 Prescriptions: No Action spironolactone 100 mg tablet 100 mg PO BID PRN (Reason: as directed) RF: 0 bupropion HCl 300 mg tablet extended release 24 hr 300 mg PO DAILY RF: 0 thyroid (pork) [[place] Thyroid] 30 mg tablet 75 mg PO DAILY RF: 0 multivitamin Tablet 1 tab PO DAILY RF: 0 cholecalciferol (vitamin D3) [Vitamin D3] 5,000 unit Tablet 5,000 unit PO WEEKLY RF: 0 hydroxyzine pamoate [Vistaril] 50 mg capsule 50 mg PO TID-QID PRN (Reason: anxiety) Qty: 20 RF: 0 spironolactone 100 mg tablet 100 mg PO BID RF: 0 thyroid (pork) [[place] Thyroid] 60 mg tablet 60 mg PO DAILY RF: 0
[2019-05-01] MEDS: WATER IV (04:55)
[2019-05-01] MEDS: ACYCLOVIR IV (04:55)
[2019-05-01] MEDS: DEXTROSE 5% IV (04:55)
[2019-05-01 05:05] LABS: Cryptococcus neoformans/gattii Not Detected (Not Detect); Enterovirus Not Detected (Not Detect); Escherichia coli K1 Not Detected (Not Detect); Herpes simplex virus 1 Not Detected (Not Detect); Herpes simplex virus 2 Not Detected (Not Detect); Human herpesvirus 6 Not Detected (Not Detect); Neisseria meningitidis Not Detected (Not Detect); Streptococcus agalactiae Not Detected (Not Detect); Streptococcus pneumoniae Not Detected (Not Detect)
[2019-05-01 05:06] LABS: Haemophilus influenzae Not Detected (Not Detect); Human parechovirus Not Detected (Not Detect); Listeria monocytogenes Not Detected (Not Detect); Varicella Zoster Virus Not Detected
[2019-05-01 05:16] LABS: Creatine Kinase 386 U/L (30-135)
[2019-05-01 05:20] LABS: T4 Total Thyroxine 4.77 ug/dL (5.5-11.0)
[2019-05-01 05:34] LABS: Thyroid Stimulating Hormone 3.54 uIU/mL (0.47-4.68)
[2019-05-01] MEDS: ONDANSETRON 4 MG/2 ML INJ IV (05:45)
[2019-05-01 06:16] LABS: Influenza A and B by PCR Rapid Negative (Negative)
--- NOTE | 2019-05-01 07:27 | PC.NURSE ---
Michelle Hernandez is pt's designated rep for pt and will be coming in to be with patient. Phone number [phone]
[2019-05-01] MEDS: SODIUM CHLORIDE 0.9% 1,000 ML 150 ML IV (07:51)
--- NOTE | 2019-05-01 07:52 | PC.NURSE ---
Patient consented to LP with headnod and mmm hmmm. Pt able to understand words and situation but unable to express verbal consent with words. Patient agreeable to LP and helped position herself for the procedure. Procedure completed as implied consent as she was unable to physically sign in during her emergent presentation.
== END 2019-05-01 09:31 | disposition short-term general hospital (02) ==
PROVIDERS: Emergency Provider Emergency Medicine
DX: R47.01 Aphasia (principal); A86 Unspecified viral encephalitis; R41.82 Altered mental status, unspecified
CPT/HCPCS: 36415; 62272; 70450; 80048; 80305; 82550; 82945; 83605; 84157; 84436; 84443; 85025; 87040; 87070; 87205; 87400; 87502; 87798; 89051; 96361; 96365; 96368; 96375; 96376; 99285; 99291; J0696; J1885; J2405

== ENCOUNTER → 2020-02-05 10:06 | Outpatient (CLI) | payer OTHER, SELFPAY ==
--- NOTE | 2020-02-05 | DI.MRI.S_ITS ---
PROCEDURE: MR KNEE RT WO CON INDICATIONS: Pain in right knee TECHNIQUE: Noncontrast sagittal PD fast spin echo and T2 fast spin echo with fat saturation, sagittal 3-D FLASH with fat saturation; coronal T1 spin echo and PD fast spin echo with fat saturation, and axial PD fast spin echo with fat saturation through the knee. COMPARISON: None. FINDINGS: Image quality: Excellent. Menisci: There is a large degenerative tear involving the body and posterior horn of the medial meniscus. The lateral meniscus demonstrates normal morphology and internal signal. The meniscal root ligaments appear intact. Cruciate ligaments: The anterior and posterior cruciate ligaments appear intact. Medial structures: The medial collateral ligament appears intact. The posterior oblique ligament, semimembranosus tendon insertions, oblique popliteal ligament, and meniscocapsular junction appear intact. Visualized portions of the pes anserinus tendons appear normal. No abnormal bursal fluid. Lateral structures: The lateral collateral ligament, long and short heads of the biceps femoris tendon appear intact. The popliteus tendon appears normal; the popliteofibular ligament appears intact. The posterosuperior and anteroinferior popliteomeniscal fascicles appear intact. The arcuate and fabellofibular ligaments appear intact, on either side of the lateral inferior geniculate artery. Iliotibial band appears normal. Anterior structures: The quadriceps and patellar tendons appear intact. The patella is laterally subluxed. No femoral trochlear dysplasia or ventral trochlear prominence. No edema in the infrapatellar fat pad. Bones and cartilage: No bone marrow contusions or fractures. There is severe osteoarthritic degenerative change involving the medial patellar facet with full-thickness loss of articular cartilage and osteophytosis. There is moderate osteophytic degenerative change in the medial compartment with thinning of articular cartilage and marginal osteophytosis. There is a small, approximately 2 mm in diameter a full-thickness articular cartilage defect involving the medial femoral condyle. Joint space: There is a large joint effusion. There is a large popliteal cyst. Normal appearing synovial plicae are incidentally noted. IMPRESSION: 1. Large degenerative tear of the body and posterior horn of the medial meniscus. 2. 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 3. Large joint effusion. 4. Large popliteal cyst. Dictated by: Marii Saurez MD, PhD on 02/05/2020 at 13:16 Approved by: Marii Suarez MD, PhD on 02/07/2020 at 14:06
== END ==
PROVIDERS: Referring Provider Registered Nurse Diabetes Educator; Visit Provider Registered Nurse Diabetes Educator
DX: M25.561 Pain in right knee (principal); M23.221 Derangement of posterior horn of medial meniscus due to old tear or injury, right knee; M23.231 Derangement of other medial meniscus due to old tear or injury, right knee; M17.11 Unilateral primary osteoarthritis, right knee; M25.461 Effusion, right knee; M71.21 Synovial cyst of popliteal space [Baker], right knee
CPT/HCPCS: 73721

== ENCOUNTER 2020-12-19 22:39 | Emergency (ER) | payer OTHER, SELFPAY ==
[2020-12-19 22:49] VITALS: BP 128/77; PULSE 76; RESP 17; TEMP 37; O2SAT 97; BMI 23.0
--- NOTE | 2020-12-19 23:01 | PC.NURSE ---
patient's full grown dog attacked her cat and she tried to rescue the cat from the dogs mouth.
--- NOTE | 2020-12-19 23:22 | DI.RAD.S_ITS ---
PROCEDURE: XR HAND RT MIN 3V INDICATIONS: dog bite TECHNIQUE: 3 views of the hand(s) acquired. COMPARISON: None. FINDINGS: Bones: No fractures or dislocations. Joint space narrowing and osteophyte formation of the 1st carpometacarpal joint. There also likely intra-articular loose bodies in the 1st carpometacarpal joint. There is also joint space narrowing of the triscaphe joint. Carpal bones are normally aligned. No suspicious bony lesions. Soft tissues: No suspicious soft tissue calcifications. No radiopaque foreign body. IMPRESSION: No radiopaque foreign body. Osteoarthritis of the triscaphe and 1st carpometacarpal joint. Dictated by: Reji Campo M.D. on 12/19/2020 at 23:32 Approved by: Reji Campo M.D. on 12/19/2020 at 23:34
[2020-12-19] MEDS: TET,DIPH,PERTUSS(ACELL),VAC/PF 0.5 ML SYRINGE IM (23:26)
[2020-12-20] MEDS: ACETAMINOPHEN 325 MG TABLET 975 MG PO (00:07)
--- NOTE | 2020-12-20 00:34 | ED.ANIMALBIT ---
HPI - Animal Bite General Chief Complaint: Animal Bite Stated Complaint: SCRATCHED BY CAT WOUNDS ON HANDS Time Seen by Provider: 12/20/20 00:29 Source: patient Mode of arrival: Ambulatory Limitations: no limitations History of Present Illness HPI narrative: This is a 50-year-old female comes emergency department after using her hands to separate a cat and a dog that were fighting. Patient states that she had both hands in her dog's mouth at 1 point. She has lacerations to the thumb and 5th finger on the right hand. As well as multiple other small lacerations on both hands. Patient states she is having difficulty flexing the 5th finger. She states she does feel like she has some numbness distally. She states she had extreme discomfort when her dog bit her pinky finger it has improved at this time. She denies other injuries. Her tetanus was updated here in the department. She states that her her dog was up-to-date on immunizations but the CT was not fully vaccinated. They are both a personal pet. Patient states she does have a history of SVT she has actually seen a hand surgeon the past for prior injuries. Related Data Home Medications Medication Instructions Recorded Confirmed bupropion HCl 300 mg PO DAILY 12/11/18 12/11/18 cholecalciferol (vitamin D3) 5,000 unit PO WEEKLY 12/11/18 12/11/18 [Vitamin D3] multivitamin 1 tab PO DAILY 12/11/18 12/11/18 spironolactone 100 mg PO BID PRN 12/11/18 12/11/18 thyroid (pork) [Peytona Thyroid] 75 mg PO DAILY 12/11/18 12/11/18 spironolactone 100 mg PO BID 05/01/19 05/01/19 thyroid (pork) [Peytona Thyroid] 60 mg PO DAILY 05/01/19 05/01/19 Previous Rx's Medication Instructions Recorded hydroxyzine pamoate [Vistaril] 50 mg PO TID-QID PRN #20 cap 12/11/18 amoxicillin-pot clavulanate 1 tab PO Q12H #20 tab 12/20/20 [Augmentin] Allergies Allergy/AdvReac Type Severity Reaction Status Date / Time benzonatate Allergy Unknown AIRWAY Verified 12/11/18 11:02 [From TESCLYDE PRICE] CONSTRICTION prochlorperazine Allergy Unknown ANXIETY Verified 12/11/18 11:02 [From COMPAZINE] promethazine [From PHENERGAN] Allergy Unknown UNKNOWN Verified 12/11/18 11:02 Review of Systems Review of Systems ROS Unobtainable: All systems reviewed & are unremarkable except as noted in HPI and below Patient History Medical History (Updated 12/20/20 @ 00:52 by Sandy Fernandez DO) Closed fracture of cuneiform bone of left ankle Jade's thyroiditis PSVT (paroxysmal supraventricular tachycardia) Sick sinus syndrome Surgical History History of radiofrequency ablation procedure for cardiac arrhythmia Family History Other No pertinent family history Social History Smoking Status: Never smoker Smoking Status: Never smoker alcohol intake frequency: 0-2 drinks per day Substance Use Type: does not use Exam Narrative Exam Narrative: GENERAL: Alert and oriented x three, well-nourished female in mild distress. HEENT: Head normocephalic, atraumatic, EOMI, pupils reactive, face symmetric, moist mucous membranes NECK: Supple, full range of motion CARDIOVASCULAR: Regular rate and rhythm without murmurs, rubs or gallops. RESPIRATORY: Breath sounds equal bilaterally, no wheezes rales or rhonchi. ABDOMEN: Soft, nontender. Normoactive bowel sounds all 4 quadrants. No guarding or rebound, rigidity, no mass EXTREMITIES: Normal range of motion, except at middle interphalangeal joint of 5th digit on right hand. Patient has a a 0.75 cm laceration close to the webbing of the thumb that mildly gaps. Patient also has a laceration over the middle interphalangeal joint of the right 5th finger that is gapped but no subcutaneous tissue exposed. Neurovascularly intact. Patient does have significant bony tenderness over the 5th digit on the right hand. NEUROLOGICAL: Cranial nerves II through XII grossly intact. Moving all extremities SKIN: Warm, dry, no petechiae, no rashes. Patient has multiple superficial lacerations on both hands but the majority are on her right. She does have several small lacerations on the left. Initial Vital Signs Initial Vital Signs: Vital Signs Temperature 98.6 F 12/19/20 22:49 Pulse Rate 76 12/19/20 22:49 Respiratory Rate 17 12/19/20 22:49 Blood Pressure 128/77 12/19/20 22:49 Pulse Oximetry 97 12/19/20 22:49 Course Orders Ordered: ED Orders 12/19/20 23:22 XR hand RT min 3V Stat Discontinued Medications Acetaminophen (Acetaminophen 325 Mg Tablet) 975 mg PO NOW ONE Stop: 12/20/20 00:00 Last Admin: 12/20/20 00:07 Dose: 975 mg Documented by: MICHAEL Amoxicillin/Clavulanate Potassium (Amoxicillin/Clav 875/125 Mg) 1 tab PO NOW ONE Stop: 12/20/20 00:50 Last Admin: 12/20/20 01:19 Dose: 1 tab Documented by: LOVE Diphtheria/Tetanus/Acell Pertussis (Tet,Diph,Pertuss(Acell),Vac/Pf 0.5 Ml Syringe) 0.5 ml IM .ONCE ONE Stop: 12/19/20 22:53 Last Admin: 12/19/20 23:26 Dose: 0.5 ml Documented by: LEIF Oxycodone/Acetaminophen (Oxycodone/Apap 5/325 Prepack) 1 bottle MISC SEEINSTR ONE Stop: 12/20/20 01:49 Last Admin: 12/20/20 01:54 Dose: 1 bottle Documented by: MICHAEL Tramadol HCl (Tramadol 50 Mg Prepack) 1 bottle MISC SEEINSTR ONE Stop: 12/20/20 01:42 Vital Signs Vital signs: Vital Signs - 8 hr 12/19/20 22:49 12/20/20 01:48 Temperature 98.6 F Pulse Rate 76 65 Respiratory Rate 17 20 Blood Pressure 128/77 116/69 Pulse Oximetry 97 96 MDM - Animal Bite Imaging Data Extremity x-ray #1: Radiologist's Impression: X-ray right hand. No acute fracture. No radiopaque foreign body or soft tissue gas. [facility] Narrative Medical decision making narrative: Patient tetanus updated in the department. Hand was cleansed here in the department. Wounds were evaluated patient has 2 lacerations that will likely heal with out any suture repair and we discussed that they are high risk for infection Um as there was dog and cat bites but most likely majority is injury from dog bite. Patient is comfortable deferring any further repair. Wound care directions were given. Patient was given a short course of pain medication. She did have difficulty flexing her middle interphalangeal joint of her pinky finger., patient is NVI, X-ray did not show any obvious fracture or dislocation. No foreign bodies were appreciated. Discussed with patient she has seen a hand surgeon in the past stand if she is able to contact would be inappropriate follow-up option. We discussed that she is hgh risk for infection, she will need to complete antibiotics and return if any signs of infection. Discharge Plan Departure Patient Disposition: Home Clinical Impression: Animal bite of hand Instructions: DI for Animal Bites Activity Restrictions/Additional Instructions: Follow up in the next 2-3 days for recheck. If you have a hand surgeon that you have seen in the past you can follow up with them. Your imaging does not show obvious foreign body or fracture/dislocation but I recommend recheck in the short term. Please take antibiotics until they are completely gone. Prescription to [facility] in [place]. You may take Tylenol up to a 1000 mg every 8 hours and or ibuprofen up to 800 mg every 8 hours needed for pain. Return for fevers greater 100.4 F, any signs of infectious, redness, increasing swelling, increasing pain, new loss of sensation, weakness, color changes or other new or concerning symptoms. Prescriptions: New amoxicillin-pot clavulanate [Augmentin] 875-125 mg tablet 1 tab PO Q12H Qty: 20 RF: 0 No Action spironolactone 100 mg tablet 100 mg PO BID PRN (Reason: as directed) RF: 0 bupropion HCl 300 mg tablet extended release 24 hr 300 mg PO DAILY RF: 0 thyroid (pork) [Peytona Thyroid] 30 mg tablet 75 mg PO DAILY RF: 0 multivitamin Tablet 1 tab PO DAILY RF: 0 cholecalciferol (vitamin D3) [Vitamin D3] 5,000 unit Tablet 5,000 unit PO WEEKLY RF: 0 hydroxyzine pamoate [Vistaril] 50 mg capsule 50 mg PO TID-QID PRN (Reason: anxiety) Qty: 20 RF: 0 spironolactone 100 mg tablet 100 mg PO BID RF: 0 thyroid (pork) [Peytona Thyroid] 60 mg tablet 60 mg PO DAILY RF: 0 Referrals: Kati Merrill MD [Physician] -
[2020-12-20] MEDS: AMOXICILLIN/CLAV 875/125 MG 1 TAB PO (01:19)
[2020-12-20 01:48] VITALS: BP 116/69; PULSE 65; RESP 20; O2SAT 96
[2020-12-20] MEDS: OXYCODONE/APAP 5/325 PREPACK 1 BOTTLE MISC (01:54)
--- NOTE | 2020-12-20 02:23 | PC.NURSE ---
Dressed patients wounds. On write hand placed xeroform over all scratches and lacerations followed by a non adherent gauze wrapped with a gauze roll. Placed bandaids over scratches on left hand
== END 2020-12-20 02:05 | disposition home or self-care (01) ==
PROVIDERS: Emergency Provider Emergency Medicine
DX: S60.572A Other superficial bite of hand of left hand, initial encounter (principal); S60.571A Other superficial bite of hand of right hand, initial encounter; S60.512A Abrasion of left hand, initial encounter; S60.511A Abrasion of right hand, initial encounter; W54.0XXA Bitten by dog, initial encounter; W55.03XA Scratched by cat, initial encounter; Z23 Encounter for immunization
CPT/HCPCS: 73130; 90471; 99283; 90715

== ENCOUNTER 2023-06-11 21:26 | Observation (INO) | payer OTHER, MEDICAID, SELFPAY ==
[2023-06-11] VITALS (8 sets, daily range): BP systolic 96–115; BP diastolic 62–68; PULSE 67–85; RESP 17–22; TEMP 36.1; O2SAT 91–97; BMI 23.1
--- NOTE | 2023-06-11 21:42 | DI.RAD.S_ITS ---
PROCEDURE: XR CHEST 1V INDICATIONS: Syncopal episodes. TECHNIQUE: One view of the chest was acquired. COMPARISON: None. FINDINGS: Surgical changes and devices: None. Lungs and pleura: Lungs are clear. No pleural effusions or pneumothorax. Mediastinum: Mediastinal contours appear normal. Heart size is normal. Bones and chest wall: No suspicious bony lesions. Overlying soft tissues appear unremarkable. IMPRESSION: No acute cardiopulmonary findings Approved by: Macario Hughes M.D. on 06/11/2023 at 22:18
--- NOTE | 2023-06-11 21:52 | DI.CT.S_ITS ---
PROCEDURE: CT CERVICAL SPINE WO CON INDICATIONS: syncope x 2, hx arrythmias TECHNIQUE: Noncontrast 3 mm thick sections acquired from the skull base to the T4 level. Sagittal and coronal reformats were then constructed. For radiation dose reduction, the following was used: automated exposure control, adjustment of mA and/or kV according to patient size. COMPARISON: None. FINDINGS: Image quality: Excellent. Bones: No fractures or dislocations. Visualized superior ribs are intact. There is straightening the normal cervical lordosis. Multilevel degenerative disc disease and arthropathy particularly present in the mid cervical spine. Mild grade 1 anterior degenerative spondylolisthesis C6-7. Foraminal stenosis predominantly left-sided particularly at C3-4, C5-6 Soft tissues: Prevertebral soft tissues are normal in thickness. No paravertebral hematomas. No apical pneumothoraces. IMPRESSION: No fracture or traumatic malalignment. Straightening of the normal cervical lordosis may related to muscle spasm or positioning. Degenerative disc disease and arthropathy Approved by: Macario Hughes M.D. on 06/11/2023 at 21:51
--- NOTE | 2023-06-11 21:52 | DI.CT.S_ITS ---
PROCEDURE: CT HEAD/BRAIN WO CON INDICATIONS: syncope x 2, hx arrythmias TECHNIQUE: Noncontrast 4.5 mm thick angled axial sections acquired from the foramen magnum to the vertex, with coronal and sagittal reformats. For radiation dose reduction, the following was used: automated exposure control, adjustment of mA and/or kV according to patient size. COMPARISON: [facility], CT, CT HEAD/BRAIN WO CON, 05/01/2019, 2:14. FINDINGS: Image quality: Excellent. CSF spaces: Basal cisterns are patent. No extra-axial fluid collections. Ventricles are normal in size and shape. Brain: No midline shift. No intracranial masses or hemorrhage. Talley-white matter interface is normal. Skull and face: Calvarium and visualized facial bones are intact, without suspicious lesions. Sinuses: Visualized sinuses and mastoids are clear. IMPRESSION: Normal CT brain Approved by: Macario Hughes M.D. on 06/11/2023 at 21:48
[2023-06-11 21:58] LABS: Add Manual Diff / Slide Review NO; Basophils Absolute Auto 0 /uL (0-100); Basophils Percent Auto 0.7 % (0-2); Eosinophils Absolute Auto 100 /uL (0-450); Eosinophils Percent Auto 1.4 % (2-4); Hematocrit 39.1 % (36-46); Hemoglobin 13.4 g/dL (12.0-16.0); Lymphocytes Absolute Auto 2200 /uL (1100-4500); Lymphocytes Percent Auto 43.2 % (25-40); Mean Corpuscular HGB Conc 34.3 % (30-36); Mean Corpuscular Hemoglobin 31.6 PG (26-34); Mean Corpuscular Volume 92.2 fL (80-100); Monocytes Absolute Auto 600 /uL (0-900); Monocytes Percent Auto 11.7 % (3-14); Neutrophils Absolute Auto 2200 /uL (1500-7000); Platelet Count 272 X10^3/uL (150-400); Red Blood Cell Count 4.24 X10^6/uL (4.0-5.2); White Blood Cell Count 5.2 X10^3/uL (4.5-11.0)
[2023-06-11 22:04] LABS: INR 1.1 (0.9-1.3); Prothrombin Time 12.6 SECONDS (10.1-12.7)
[2023-06-11 22:07] LABS: PTT Partial Thromboplastin Tim 32 SECONDS (26-36)
[2023-06-11 22:09] LABS: Alanine Aminotransferase 21 IU/L (<35); Albumin 4.2 g/dL (3.5-5.0); Albumin Globulin Ratio 1.4 (1.0-2.8); Alkaline Phosphatase 57 U/L (38-126); Aspartate Aminotransferase 26 IU/L (14-36); BUN Creatinine Ratio 25.6 (6-22); Bilirubin Total 0.5 mg/dL (0.2-1.3); Blood Urea Nitrogen 20 mg/dL (7-17); Calcium 9.1 mg/dL (8.4-10.2); Carbon Dioxide 26 mmol/L (22-32); Chloride 104 mmol/L (98-107); Creatine Kinase 87 U/L (30-135); Estimated Glomerular Filt Rate > 60 mL/min (>60); Glucose 84 mg/dL (70-100); HEMOLYSIS < 15 (0-50); Lipase 132 U/L (23-300); Magnesium 1.9 mg/dL (1.6-2.3); Potassium 3.5 mmol/L (3.4-5.1); Sodium 139 mmol/L (137-145); Total Protein 7.2 g/dL (6.3-8.2)
[2023-06-11] MEDS: SODIUM CHLORIDE 0.9% 1,000 ML 1000 ML IV (22:12)
[2023-06-11 22:20] LABS: Troponin I < 0.012 ng/mL (0.01-0.034)
--- NOTE | 2023-06-11 23:05 | ED.SYNCOPE ---
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 Patient presents today with complaint of 2 syncopal episodes and a 3rd near syncopal episode that occurred today. Patient states she was quite tired last night went to bed earlier than usual at 7:00 p.m., woke up at 4:00 a.m., went to the bathroom felt fuzzy little bit of blurred had a little bit of stomach discomfort went to the bathroom states she woke up with her pants pulled down around her ankle on the floor had obviously hit her head and does not recall passing out. She states she has a little bit of neck pain but normal range of motion no numbness tingling or weakness. Patient states she would a 2nd episode she got back to her bedroom was making her bed started to feel weird and similar to when she would have syncopal episodes in the past went to sit in a chair missed and woke up on the floor. She states both of these were only a few minutes. Third episode she was several hours later on 01/16 this afternoon in her kitchen started have similar symptoms as when she would have syncopal episodes in the past dizzy and woozy and sat down leaned back against the covered. Patient states no fevers or chills, no headache, no cold cough or congestion symptoms. No chest pain, no shortness of breath. She would nausea this morning with the 1st episode but not persistent, no vomiting. No abdominal back or flank pain. No new swelling in her extremities. Patient states her current medications are thyroid supplementation Wellbutrin 150 mg. She has had multiple surgeries including ablation 21 years ago, was told that she should have a pacemaker but she deferred and had multiple recurrent syncopal episodes which then improved over time. She is had a prior surgery for LeFort 2 fracture, wrist surgery, right rotator lap, and knee surgery x4 remotely. She states she is allergic to Phenergan and Tessalon Perles. No tobacco, alcohol or illicit. She was seeing Dr. Harsha with Cardiology at [facility], she states her last visit was at least 5 years ago she had positive bubble studies at that time and an EF of 47% and was recommended to have annual visits but had not been doing that. Patient does not have a primary care she follows with regularly. Patient works in healthcare. Related Data Home Medications Medication Instructions Recorded Confirmed bupropion HCl 300 mg 24 hr tablet, 300 mg PO DAILY 12/11/18 12/11/18 extended release cholecalciferol (vitamin D3) 125 5,000 unit PO WEEKLY 12/11/18 12/11/18 mcg (5,000 unit) tablet (Vitamin D3) multivitamin 1 tab PO DAILY 12/11/18 12/11/18 spironolactone 100 mg tablet 100 mg PO BID PRN as directed 12/11/18 12/11/18 thyroid (pork) 30 mg tablet 75 mg PO DAILY 12/11/18 12/11/18 spironolactone 100 mg tablet 100 mg PO BID 05/01/19 05/01/19 thyroid (pork) 60 mg tablet 60 mg PO DAILY 05/01/19 05/01/19 Previous Rx's Medication Instructions Recorded hydroxyzine pamoate 50 mg capsule 50 mg PO TID-QID PRN anxiety #20 12/11/18 (Vistaril) caps amoxicillin 875 mg-potassium 1 tab PO Q12H #20 tabs 12/20/20 clavulanate 125 mg tablet (Augmentin) Allergies Allergy/AdvReac Type Severity Reaction Status Date / Time benzonatate Allergy Unknown AIRWAY Verified 06/11/23 21:33 [From TESSALON PERLES] CONSTRICTION prochlorperazine Allergy Unknown ANXIETY Verified 06/11/23 21:33 [From COMPAZINE] promethazine [From PHENERGAN] Allergy Unknown Hallucinati Verified 06/11/23 21:33 ng Review of Systems Review of Systems ROS Unobtainable: All systems reviewed & are unremarkable except as noted in HPI and below Patient History Medical History (Updated 06/12/23 @ 00:13 by Sandy Fernandez DO) Closed fracture of cuneiform bone of left ankle Jade's thyroiditis PSVT (paroxysmal supraventricular tachycardia) Sick sinus syndrome Surgical History History of radiofrequency ablation procedure for cardiac arrhythmia Family History Other No pertinent family history Social History Smoking Status: Never smoker Smoking Status: Never smoker alcohol intake frequency: 0-2 drinks per day Substance Use Type: does not use Exam Narrative Exam Narrative: GEN: Patient appears in mild distress. HEAD: Patient has a linear abrasion and hematoma over her forehead., no raccoon/Pereyra sign. NECK: Nontender, painless range of motion, trachea midline Positive for Nexus criteria, there is mild midline line tenderness, no distracting injury, altered mental status, neuro deficit, recent EtOH. Normal range of motion. EYES: PERRLA, EOMI ENT: External inspection normal, trachea is midline, TM's are normal no hemotypanum, Nares are clear, no septal hematoma, no dental or oral injury, airway is normal and with normal occlusion, No bony tenderness RESP: Chest is nontender and has symmetric movement, no ecchymosis, breath sounds are normal no crackles, wheezes or rales CVS: Heart sounds are normal, no murmur noted, No JVD. ABG/GI: Nontender, soft, normal bowel sounds, no distention, no organomegaly NEURO: Oriented AOx3, neuro is grossly intact, sensation and motor is normal all 4 extremities moving, cranial nerves II through XII are intact, GCS is 15 PSYCH: Normal mood and affect SKIN: Intact, warm and dry, no crepitus and without decubitus BACK: No CVA tenderness, no vertebral tenderness, no step-off's, no crepitus EXT: Atraumatic, hips are nontender, normal range of motion. 2+ pulses bilateral lower extremities. Initial Vital Signs Initial Vital Signs: Vital Signs Temperature 97.0 F L 06/11/23 21:33 Pulse Rate 81 06/11/23 21:33 Respiratory Rate 18 06/11/23 21:33 Blood Pressure 107/65 06/11/23 21:33 Pulse Oximetry 96 06/11/23 21:33 Oxygen Delivery Method Room Air 06/11/23 21:33 Course Orders Ordered: ED Orders 06/11/23 21:42 XR chest 1V Stat EKG-12 Lead Stat 06/11/23 21:49 Complete Blood Count AUTO DIFF Stat Comprehensive Metabolic Panel Stat Lipase Stat Magnesium Stat PTT Partial Thromboplastin Ilvan Stat Prothrombin Time INR Stat TSH w/ Reflex to FT4 Stat Troponin & CK Cardiac Panel Stat 06/11/23 21:52 CT cervical spine wo con Stat CT head/brain wo con Stat 06/11/23 23:58 Trop I [Troponin I] Stat EKG-12 Lead Stat 06/12/23 00:07 COVID19 -Nasal RAPID Stat 06/12/23 00:22 Urine Microscopic Stat Acetaminophen (Acetaminophen 325 Mg Tablet) 650 mg PO Q6H PRN PRN Reason: Fever/Mild Pain (1-3) Naloxone HCl (Naloxone 0.4 Mg/Ml Vial) 0.2 mg IV Q2MIN PRN PRN Reason: Opiate Reversal Ondansetron HCl (Ondansetron 4 Mg Odt) 4 mg PO Q8HR PRN PRN Reason: Nausea And Vomiting Ondansetron HCl (Ondansetron 4 Mg/2 Ml Inj) 4 mg IV Q8HR PRN PRN Reason: Nausea And Vomiting Discontinued Medications Aspirin (Aspirin 81 Mg Chew Tab) 324 mg PO NOW ONE Stop: 06/11/23 21:42 Last Admin: 06/11/23 21:57 Dose: Not Given Documented By: Sodium Chloride (Normal Saline 0.9%) 1,000 mls @ 1,000 mls/hr IV BOLUS ONE Stop: 06/11/23 22:51 Last Infusion: 06/11/23 23:29 Dose: 0 mls/hr Documented By: CAROL ANN Admin: 06/11/23 22:12 Dose: 1,000 mls/hr Documented By: Sodium Chloride (Normal Saline 0.9%) 1,000 mls @ 1,000 mls/hr IV BOLUS ONE Stop: 06/12/23 00:58 Last Infusion: 06/12/23 02:09 Dose: 0 mls/hr Documented By: Admin: 06/12/23 00:35 Dose: 1,000 mls/hr Documented By: CAROL ANN Vital Signs Vital signs: Vital Signs - 8 hr 06/11/23 21:33 06/11/23 21:53 06/11/23 21:55 Temperature 97.0 F L Pulse Rate 81 85 Respiratory Rate 18 Blood Pressure 107/65 115/68 Pulse Oximetry 96 91 Oxygen Delivery Method Room Air 06/11/23 21:55 06/11/23 22:13 06/11/23 22:14 Temperature Pulse Rate 77 79 72 Respiratory Rate 17 Blood Pressure Pulse Oximetry 96 96 97 Oxygen Delivery Method 06/11/23 22:14 06/11/23 22:30 06/11/23 22:30 Temperature Pulse Rate 71 Respiratory Rate 18 Blood Pressure 100/67 102/63 Pulse Oximetry 97 Oxygen Delivery Method 06/11/23 23:00 06/11/23 23:00 06/11/23 23:30 Temperature Pulse Rate 67 Respiratory Rate 17 Blood Pressure 97/62 96/62 Pulse Oximetry 96 Oxygen Delivery Method 06/11/23 23:30 06/12/23 00:00 06/12/23 00:00 Temperature Pulse Rate 73 74 Respiratory Rate 22 17 Blood Pressure 103/72 Pulse Oximetry 95 98 Oxygen Delivery Method 06/12/23 00:30 06/12/23 00:30 06/12/23 01:00 Temperature Pulse Rate 68 Respiratory Rate 17 Blood Pressure 112/64 102/63 Pulse Oximetry 98 Oxygen Delivery Method 06/12/23 01:00 06/12/23 01:30 06/12/23 01:30 Temperature Pulse Rate 70 79 Respiratory Rate 18 19 Blood Pressure 104/65 Pulse Oximetry 98 97 Oxygen Delivery Method 06/12/23 02:00 06/12/23 02:00 06/12/23 02:30 Temperature Pulse Rate 75 Respiratory Rate 18 Blood Pressure 106/64 122/77 Pulse Oximetry 97 Oxygen Delivery Method 06/12/23 02:30 06/12/23 03:00 06/12/23 03:00 Temperature Pulse Rate 81 75 Respiratory Rate 21 20 Blood Pressure 103/56 L Pulse Oximetry 96 98 Oxygen Delivery Method MDM - Syncope Lab Data 06/11/23 21:49 06/11/23 21:49 Labs: Lab Results 06/11/23 06/11/23 06/11/23 Range/Units 21:49 21:49 21:49 WBC 5.2 (4.5-11.0) X10^3/uL RBC 4.24 (4.0-5.2) X10^6/uL Hgb 13.4 (12.0-16.0) g/dL Hct 39.1 (36-46) % MCV 92.2 (80-100) fL MCH 31.6 (26-34) PG MCHC 34.3 (30-36) % RDW 13.0 (11.6-14.8) % Plt Count 272 (150-400) X10^3/uL Neut % (Auto) 43.0 L (50-75) % Lymph % (Auto) 43.2 H (25-40) % [place] % (Auto) 11.7 (3-14) % Eos % (Auto) 1.4 L (2-4) % Baso % (Auto) 0.7 (0-2) % Neut # (Auto) 2200 (7292-5252) /uL Lymph # (Auto) 2200 (3368-4044) /uL [place] # (Auto) 600 (0-900) /uL Eos # (Auto) 100 (0-450) /uL Baso # (Auto) 0 (0-100) /uL PT 12.6 (10.1-12.7) SECONDS INR 1.1 (0.9-1.3) APTT 32 (26-36) SECONDS Sodium 139 (137-145) mmol/L Potassium 3.5 (3.4-5.1) mmol/L Chloride 104 (98-107) mmol/L Carbon Dioxide 26 (22-32) mmol/L BUN 20 H (7-17) mg/dL Creatinine 0.78 (0.52-1.04) mg/dL Estimated GFR > 60 (>60) mL/min BUN/Creatinine Ratio 25.6 H (6-22) Glucose 84 (70-100) mg/dL Calcium 9.1 (8.4-10.2) mg/dL Magnesium 1.9 (1.6-2.3) mg/dL Total Bilirubin 0.5 (0.2-1.3) mg/dL AST 26 (14-36) IU/L ALT 21 (<35) IU/L Alkaline Phosphatase 57 (38-126) U/L Total Creatine Kinase 87 (30-135) U/L Troponin I < 0.012 (0.01-0.034) ng/mL Total Protein 7.2 (6.3-8.2) g/dL Albumin 4.2 (3.5-5.0) g/dL Globulin 3.0 (1.7-4.1) g/dL Albumin/Globulin Ratio 1.4 (1.0-2.8) Lipase 132 (23-300) U/L TSH (0.47-4.68) uIU/mL Urine RBC (0-5/HPF) Urine WBC (0-5/HPF) Ur Squamous Epith Cells (0-5/HPF) Urine Bacteria (None) Ur Culture Indicated? SARS-CoV-2 (PCR) (Negative) 06/11/23 06/12/23 06/12/23 Range/Units 21:49 00:07 00:07 WBC (4.5-11.0) X10^3/uL RBC (4.0-5.2) X10^6/uL Hgb (12.0-16.0) g/dL Hct (36-46) % MCV (80-100) fL MCH (26-34) PG MCHC (30-36) % RDW (11.6-14.8) % Plt Count (150-400) X10^3/uL Neut % (Auto) (50-75) % Lymph % (Auto) (25-40) % [place] % (Auto) (3-14) % Eos % (Auto) (2-4) % Baso % (Auto) (0-2) % Neut # (Auto) (3823-4938) /uL Lymph # (Auto) (4417-3774) /uL [place] # (Auto) (0-900) /uL Eos # (Auto) (0-450) /uL Baso # (Auto) (0-100) /uL PT (10.1-12.7) SECONDS INR (0.9-1.3) APTT (26-36) SECONDS Sodium (137-145) mmol/L Potassium (3.4-5.1) mmol/L Chloride (98-107) mmol/L Carbon Dioxide (22-32) mmol/L BUN (7-17) mg/dL Creatinine (0.52-1.04) mg/dL Estimated GFR (>60) mL/min BUN/Creatinine Ratio (6-22) Glucose (70-100) mg/dL Calcium (8.4-10.2) mg/dL Magnesium (1.6-2.3) mg/dL Total Bilirubin (0.2-1.3) mg/dL AST (14-36) IU/L ALT (<35) IU/L Alkaline Phosphatase (38-126) U/L Total Creatine Kinase (30-135) U/L Troponin I < 0.012 (0.01-0.034) ng/mL Total Protein (6.3-8.2) g/dL Albumin (3.5-5.0) g/dL Globulin (1.7-4.1) g/dL Albumin/Globulin Ratio (1.0-2.8) Lipase (23-300) U/L TSH 0.79 (0.47-4.68) uIU/mL Urine RBC (0-5/HPF) Urine WBC (0-5/HPF) Ur Squamous Epith Cells (0-5/HPF) Urine Bacteria (None) Ur Culture Indicated? SARS-CoV-2 (PCR) Positive H (Negative) 06/12/23 Range/Units 00:22 WBC (4.5-11.0) X10^3/uL RBC (4.0-5.2) X10^6/uL Hgb (12.0-16.0) g/dL Hct (36-46) % MCV (80-100) fL MCH (26-34) PG MCHC (30-36) % RDW (11.6-14.8) % Plt Count (150-400) X10^3/uL Neut % (Auto) (50-75) % Lymph % (Auto) (25-40) % [place] % (Auto) (3-14) % Eos % (Auto) (2-4) % Baso % (Auto) (0-2) % Neut # (Auto) (0402-1715) /uL Lymph # (Auto) (1109-6067) /uL [place] # (Auto) (0-900) /uL Eos # (Auto) (0-450) /uL Baso # (Auto) (0-100) /uL PT (10.1-12.7) SECONDS INR (0.9-1.3) APTT (26-36) SECONDS Sodium (137-145) mmol/L Potassium (3.4-5.1) mmol/L Chloride (98-107) mmol/L Carbon Dioxide (22-32) mmol/L BUN (7-17) mg/dL Creatinine (0.52-1.04) mg/dL Estimated GFR (>60) mL/min BUN/Creatinine Ratio (6-22) Glucose (70-100) mg/dL Calcium (8.4-10.2) mg/dL Magnesium (1.6-2.3) mg/dL Total Bilirubin (0.2-1.3) mg/dL AST (14-36) IU/L ALT (<35) IU/L Alkaline Phosphatase (38-126) U/L Total Creatine Kinase (30-135) U/L Troponin I (0.01-0.034) ng/mL Total Protein (6.3-8.2) g/dL Albumin (3.5-5.0) g/dL Globulin (1.7-4.1) g/dL Albumin/Globulin Ratio (1.0-2.8) Lipase (23-300) U/L TSH (0.47-4.68) uIU/mL Urine RBC None seen (0-5/HPF) Urine WBC None seen (0-5/HPF) Ur Squamous Epith Cells None seen (0-5/HPF) Urine Bacteria None seen (None) Ur Culture Indicated? Cult not indicated SARS-CoV-2 (PCR) (Negative) Urine Dip Bedside Urine Glucose Negative Bedside Urine Bilirubin - Negative Bedside Urine Ketone - Negative Urine Specific [place] 1.02 Bedside Urine Occult Blood - Negative Bedside Urine pH 6.0 Bedside Urine Protein - Negative Bedside Urine Urobilinogen - Negative Bedside Urine Nitrite - Negative Bedside Urine Leukocytes - Negative Esterase Imaging Data Chest x-ray: Radiologist's Impression: Close Head CT (Signed) Macraio Hughes - 06/11/[address] (Signed) Macario Hughes - 06/11/23 Chest X-Ray (Signed) Yahir Hughesic - 06/11/23 Hand X-Ray (Signed) Reji Campo - 12/19/20 Knee MRI (Signed) Marii Suarez - 02/05/[address] (Signed) Dede Green - 05/01/19 Ankle X-Ray (Signed) Roman Alberto - 09/21/18 Foot X-Ray (Signed) Roman Alberto - 09/21/18 Launch?[address] [address] XRay Report Signed Patient: Tila Francisco MR#: [id number] : 1970 Acct:[id number] Age/Sex: 52 / F Date of Service: 06/11/23 Loc: ED Accession Number: [id number] ?? Procedure: XR chest 1V Ordering Provider: Sandy Fernandez D.O. PROCEDURE:? XR CHEST 1V ? INDICATIONS:? Syncopal episodes. ? TECHNIQUE:? One view of the chest was acquired.? ? COMPARISON:? None. ? FINDINGS:? ? Surgical changes and devices:? None.? ? Lungs and pleura:? Lungs are clear.? No pleural effusions or pneumothorax.? ? Mediastinum:? Mediastinal contours appear normal.? Heart size is normal.? ? Bones and chest wall:? No suspicious bony lesions.? Overlying soft tissues appear unremarkable.? ? ? IMPRESSION:? No acute cardiopulmonary findings ? ? ? Approved by: Macario Hughes M.D. on 06/11/2023 at 22:18? CT scan - head: Radiologist's Impression: Tila Francisco??52??F??1970 ? Allergy/Adv: benzonatate, prochlorperazine, promethazine (More??) Close Head CT (Signed) Macario Hughes - 06/11/[address] (Signed) Macario Hughes - 06/11/23 Chest X-Ray (Signed) Macario Hughes - 06/11/23 Hand X-Ray (Signed) Reji Campo - 12/19/20 Knee MRI (Signed) Marii Suarez - 02/05/[address] (Signed) Dede Green - 05/01/19 Ankle X-Ray (Signed) Roman Alberto - 09/21/18 Foot X-Ray (Signed) Roman Alberto - 09/21/18 Launch?[place] [address] CT Scan Report Signed Patient: Tila Francisco MR#: [id number] : 1970 Acct:[id number] Age/Sex: 52 / F Date of Service: 06/11/23 Loc: ED Accession Number: [id number] ?? Procedure: CT head/brain wo con Ordering Provider: Mank,Sandy C D.O. PROCEDURE:? CT HEAD/BRAIN WO CON ? INDICATIONS:? syncope x 2, hx arrythmias ? TECHNIQUE:? Noncontrast 4.5 mm thick angled axial sections acquired from the foramen magnum to the vertex, with coronal and sagittal reformats.? For radiation dose reduction, the following was used:? automated exposure control, adjustment of mA and/or kV according to patient size.? ? COMPARISON:? [facility], CT, CT HEAD/BRAIN WO CON, 05/01/2019, 2:14. ? FINDINGS:? Image quality:? Excellent.? ? CSF spaces:? Basal cisterns are patent.? No extra-axial fluid collections.? Ventricles are normal in size and shape.? ? Brain:? No midline shift.? No intracranial masses or hemorrhage.? Talley-white matter interface is normal.? ? Skull and face:? Calvarium and visualized facial bones are intact, without suspicious lesions.? ? Sinuses:? Visualized sinuses and mastoids are clear.? ? IMPRESSION:? Normal CT brain ? ? ? Approved by: Macario Huhges M.D. on 06/11/2023 at 21:48? CT - cervical spine: Radiologist's Impression: Tila Francisco??52??F??1970 ? Allergy/Adv: benzonatate, prochlorperazine, promethazine (More??) Close Head CT (Signed) Macario Hughes - 06/11/[address] (Signed) Macario Hughes - 06/11/23 Chest X-Ray (Signed) Macario Hughes - 06/11/23 Hand X-Ray (Signed) Reji Campo - 12/19/20 Knee MRI (Signed) Marii Suarez - 02/05/[address] (Signed) Dede Green - 05/01/19 Ankle X-Ray (Signed) Roman Alberto - 09/21/18 Foot X-Ray (Signed) Roman Alberto - 09/21/18 Launch?[facility] [address] [address] [address] Scan Report Signed Patient: Tila Francisco MR#: [id number] : 1970 Acct:[id number] Age/Sex: 52 / F Date of Service: 06/11/23 Loc: ED Accession Number: [id number] ?? Procedure: CT cervical spine wo con Ordering Provider: Sandy Fernandez D.O. PROCEDURE:? CT CERVICAL SPINE WO CON ? INDICATIONS:? syncope x 2, hx arrythmias ? TECHNIQUE:? Noncontrast 3 mm thick sections acquired from the skull base to the T4 level.? Sagittal and coronal reformats were then constructed.? For radiation dose reduction, the following was used:? automated exposure control, adjustment of mA and/or kV according to patient size.? ? COMPARISON:? None. ? FINDINGS:? Image quality:? Excellent.? ? Bones:? No fractures or dislocations.? Visualized superior ribs are intact.? There is straightening the normal cervical lordosis.? Multilevel degenerative disc disease and arthropathy particularly present in the mid cervical spine.? Mild grade 1 anterior degenerative spondylolisthesis C6-7.? Foraminal stenosis predominantly left-sided particularly at C3-4, C5-6 ? Soft tissues:? Prevertebral soft tissues are normal in thickness.? No paravertebral hematomas.? No apical pneumothoraces.? ? ? IMPRESSION:? ? No fracture or traumatic malalignment. ? Straightening of the normal cervical lordosis may related to muscle spasm or positioning. ? Degenerative disc disease and arthropathy ? Approved by: Macario Hughes M.D. on 06/11/2023 at 21:51? ECG Data Attestation: I personally reviewed and interpreted this ECG as follows: Prior ECG tracings: not available for review Interpretation: Sinus rhythm rate of 63 PA 182 QRS 88 QTC of 403. No acute ST elevation or depression appreciated. Patient does not have priors for comparison. EKG 2. Sinus rhythm rate of 61 PA 198 QRS of 90 QTC of 430. No acute ST changes appreciated. Patient's EKG appears similar to prior from earlier today. MDM Narrative Medical decision making narrative: This is a 52-year-old female with reported syncopal episodes x3 today, patient has remote history of recurrent syncopal episodes but has not had issues for some time. Her EKG does not show any acute changes but no priors for comparison patient had history significant for ablation and developed junctional rhythm and then sick sinus syndrome and then went on to be able to reform pathways according to her and over time her EKGs started show P waves normal QRS. She states she used to to have a heart rate around his low as the 40s, she states 50s is typical. She states blood pressures typically 100 systolic but 90s would not be thought atypical. Patient states she has not been following regularly with Cardiology, she did have COVID about 4 weeks ago but states she was feeling improved. CBC shows no acute change, coags are negative, CMP shows a potassium of 3.5 and a Mag of 1.9 normal renal function with a BUN of 20, negative troponin. Head CT and C-spine were negative as patient did have obvious hematoma with syncopal episode and neck pain, chest x-ray shows no acute change. Repeat trop is negative. EKG shows no acute or dynamic changes. She did positive for COVID with rapid swab, she notes she had positive antigen test 4 weeks ago, had since tested negative with antigen chest. COVID test here as a PCR so could be persistently testing positive versus new infection. Patient did receive a L of fluid, blood pressure is 115 to 90s systolic. EKG and troponin were repeated patient has not had any arrhythmias here, she does sometimes wear watch they can capture arrhythmias but did not have it on today. Patient did ambulate to the bathroom once in the ED. Consulted with cardiology, [facility] as patient was following with Dr. Weber until several years ago. Spoke with Dr. Dowell covering for cardiology, reviewed patient did have 3 separate syncopal episodes. Have not caught any arrhythmias here pressures have been 100 with heart rates in the 60s to 70s. Labs overall have been appropriate. No acute or dynamic changes on EKG. He agrees with plan for echo, telemetry monitoring for 24 hours and to contact if necessary if arrhythmia or other changes are noted that require transfer. Spoke with Dr. Pineda, accepts for observation. If negative workup here can discharge home if changes with arrhythmias or to echo would necessitate transfer. Discharge Plan Departure Patient Disposition: Admitted as Observation Clinical Impression: Syncope Admit Date/Time: 06/12/23 03:37 Admit Provider: John Pineda
[2023-06-12] VITALS (26 sets, daily range): BP systolic 91–122; BP diastolic 56–77; PULSE 68–94; RESP 16–37; O2SAT 96–99
[2023-06-12] MEDS: SODIUM CHLORIDE 0.9% 1,000 ML 1000 ML IV (00:35)
[2023-06-12 00:45] LABS: Troponin I < 0.012 ng/mL (0.01-0.034)
[2023-06-12 00:53] LABS: COVID19 -Nasal RAPID POSITIVE (Negative)
[2023-06-12 00:56] LABS: TSH w/ Reflex to FT4 0.79 uIU/mL (0.47-4.68)
[2023-06-12 00:57] LABS: Bacteria Urine None Seen; Culture Indicated Urine Cult Not Indicated; RBC Urine None Seen (0-5/HPF); Squamous Epithelial Cell Urine None Seen (0-5/HPF); WBC Urine None Seen (0-5/HPF)
--- NOTE | 2023-06-12 06:22 | P.HP_ITS ---
History of Present Illness History of Present Illness Date Patient Seen: 06/12/23 Chief complaint: Heart problems, Syncope Narrative: 52-year-old female with PMH of Jade's thyroiditis and paroxysmal SVT who had an ablation 21 years ago developed sick sinus syndrome but never had a pa cemaker placed.? Patient presents today with complaint of 2 syncopal episodes and a 3rd near syncopal episode that occurred today. She did not have palpitations or chest pain. Without fever or chills or any other symptoms. [facility]LY [facility] Medical History (Updated 06/12/23 @ 06:28 by John Pineda MD) Closed fracture of cuneiform bone of left ankle Jade's thyroiditis PSVT (paroxysmal supraventricular tachycardia) Sick sinus syndrome Surgical History History of radiofrequency ablation procedure for cardiac arrhythmia Family History Other No pertinent family history Social History Smoking Status: Never smoker Meds Home Medications and Allergies Home Medications Medication Instructions Recorded Confirmed Type bupropion HCl 300 mg 24 hr tablet, 300 mg PO DAILY 12/11/18 12/11/18 History extended release cholecalciferol (vitamin D3) 125 5,000 unit PO WEEKLY 12/11/18 12/11/18 History mcg (5,000 unit) tablet (Vitamin D3) hydroxyzine pamoate 50 mg capsule 50 mg PO TID-QID PRN anxiety #20 12/11/18 Rx (Vistaril) caps multivitamin 1 tab PO DAILY 12/11/18 12/11/18 History spironolactone 100 mg tablet 100 mg PO BID PRN as directed 12/11/18 12/11/18 History thyroid (pork) 30 mg tablet 75 mg PO DAILY 12/11/18 12/11/18 History spironolactone 100 mg tablet 100 mg PO BID 05/01/19 05/01/19 History thyroid (pork) 60 mg tablet 60 mg PO DAILY 05/01/19 05/01/19 History amoxicillin 875 mg-potassium 1 tab PO Q12H #20 tabs 12/20/20 Rx clavulanate 125 mg tablet (Augmentin) Allergies Allergy/AdvReac Type Severity Reaction Status Date / Time benzonatate Allergy Unknown AIRWAY Verified 06/11/23 21:33 [From TESSALON PERLES] CONSTRICTION prochlorperazine Allergy Unknown ANXIETY Verified 06/11/23 21:33 [From COMPAZINE] promethazine [From PHENERGAN] Allergy Unknown Hallucinati Verified 06/11/23 21: 33 ng Review of Systems Constitutional Comments: w/o fever, chills, sweats, weight changes Cardiovascular Comments: she has no palpitations or chest pain Respiratory Comments: not short of breath Gastrointestinal Comments: resolved nausea Genitourinary Comments: w.o dysuria Endocrine Comments: w/o heat or cold intolerance Hematologic/Lymphatic Comments: w.o easy bruising or bleeding Exam Vital Signs (past 8 hours): - 06/11/23 22:30 06/11/23 22:30 06/11/23 23:00 Pulse Rate 71 Respiratory Rate 18 Blood Pressure 102/63 97/62 Pulse Oximetry 97 06/11/23 23:00 06/11/23 23:30 06/11/23 23:30 Pulse Rate 67 73 Respiratory Rate 17 22 Blood Pressure 96/62 Pulse Oximetry 96 95 06/12/23 00:00 06/12/23 00:00 06/12/23 00:30 Pulse Rate 74 Respiratory Rate 17 Blood Pressure 103/72 112/64 Pulse Oximetry 98 06/12/23 00:30 06/12/23 01:00 06/12/23 01:00 Pulse Rate 68 70 Respiratory Rate 17 18 Blood Pressure 102/63 Pulse Oximetry 98 98 06/12/23 01:30 06/12/23 01:30 06/12/23 02:00 Pulse Rate 79 Respiratory Rate 19 Blood Pressure 104/65 106/64 Pulse Oximetry 97 06/12/23 02:00 06/12/23 02:30 06/12/23 02:30 Pulse Rate 75 81 Respiratory Rate 18 21 Blood Pressure 122/77 Pulse Oximetry 97 96 06/12/23 03:00 06/12/23 03:00 06/12/23 03:30 Pulse Rate 75 Respiratory Rate 20 Blood Pressure 103/56 L 91/57 L Pulse Oximetry 98 06/12/23 03:30 06/12/23 04:00 06/12/23 04:03 Pulse Rate 73 74 75 Respiratory Rate 20 20 16 Blood Pressure Pulse Oximetry 96 96 97 06/12/23 04:03 06/12/23 04:30 Pulse Rate 89 Respiratory Rate 37 H Blood Pressure 121/59 L Pulse Oximetry Oxygen Delivery Method Room Air Const Other: sitting in bed in no distress Eyes Other: maylin, eomi Neck Other: w/o thyromegaly Resp Other: CTA Cardio Other: RRR, no murmurs GI Other: abdomen not distended Skin Other: w/o rashes Extrem Other: w/o swelling Psych Other: appropriate mood and affect, lucid Objective Labs 06/11/23 21:49 06/11/23 21:49 Labs: Laboratory Results - last 24 hr 06/11/23 06/11/23 06/11/23 21:49 21:49 21:49 WBC 5.2 RBC 4.24 Hgb 13.4 Hct 39.1 MCV 92.2 MCH 31.6 MCHC 34.3 RDW 13.0 Plt Count 272 Neut % (Auto) 43.0 L Lymph % (Auto) 43.2 H [place] % (Auto) 11.7 Eos % (Auto) 1.4 L Baso % (Auto) 0.7 Neut # (Auto) 2200 Lymph # (Auto) 2200 [place] # (Auto) 600 Eos # (Auto) 100 Baso # (Auto) 0 PT 12.6 INR 1.1 APTT 32 Sodium 139 Potassium 3.5 Chloride 104 Carbon Dioxide 26 BUN 20 H Creatinine 0.78 Estimated GFR > 60 BUN/Creatinine Ratio 25.6 H Glucose 84 Calcium 9.1 Magnesium 1.9 Total Bilirubin 0.5 AST 26 ALT 21 Alkaline Phosphatase 57 Total Creatine Kinase 87 Troponin I < 0.012 Total Protein 7.2 Albumin 4.2 Globulin 3.0 Albumin/Globulin Ratio 1.4 Lipase 132 TSH Urine RBC Urine WBC Ur Squamous Epith Cells Urine Bacteria Ur Culture Indicated? SARS-CoV-2 (PCR) 06/11/23 06/12/23 06/12/23 21:49 00:07 00:07 WBC RBC Hgb Hct MCV MCH MCHC RDW Plt Count Neut % (Auto) Lymph % (Auto) [place] % (Auto) Eos % (Auto) Baso % (Auto) Neut # (Auto) Lymph # (Auto) [place] # (Auto) Eos # (Auto) Baso # (Auto) PT INR APTT Sodium Potassium Chloride Carbon Dioxide BUN Creatinine Estimated GFR BUN/Creatinine Ratio Glucose Calcium Magnesium Total Bilirubin AST ALT Alkaline Phosphatase Total Creatine Kinase Troponin I < 0.012 Total Protein Albumin Globulin Albumin/Globulin Ratio Lipase TSH 0.79 Urine RBC Urine WBC Ur Squamous Epith Cells Urine Bacteria Ur Culture Indicated? SARS-CoV-2 (PCR) Positive H 06/12/23 00:22 WBC RBC Hgb Hct MCV MCH MCHC RDW Plt Count Neut % (Auto) Lymph % (Auto) [place] % (Auto) Eos % (Auto) Baso % (Auto) Neut # (Auto) Lymph # (Auto) [place] # (Auto) Eos # (Auto) Baso # (Auto) PT INR APTT Sodium Potassium Chloride Carbon Dioxide BUN Creatinine Estimated GFR BUN/Creatinine Ratio Glucose Calcium Magnesium Total Bilirubin AST ALT Alkaline Phosphatase Total Creatine Kinase Troponin I Total Protein Albumin Globulin Albumin/Globulin Ratio Lipase TSH Urine RBC None seen Urine WBC None seen Ur Squamous Epith Cells None seen Urine Bacteria None seen Ur Culture Indicated? Cult not indicated SARS-CoV-2 (PCR) Assessment & Plan Assessment and plan (1) Syncope: Status: Acute Plan: Likely related to recurrent SVTs or some other arrhythmia - telemetry monitoring - ED attending consulted with cardiology, [facility] as patient was following with Dr. Weber until several years ago and with Dr. Dowell covering for cardiology - transfer with recurrence of syncope or arrhythmia on a monitor - cardiology referral (2) PSVT (paroxysmal supraventricular tachycardia): Status: Acute Plan: Hx of. Presumably ongoing. She had ablation 21 years ago. (3) Hypothyroidism (acquired): Status: Acute Plan: armour thyroid, iatrogenic (4) Anxiety and depression: Status: Acute Plan: hydroxyzine prn, wellbutrin
--- NOTE | 2023-06-12 07:18 | PM.HP.1 ---
History of Present Illness History of Present Illness Date Patient Seen: 06/12/23 Chief complaint: Heart problems, Syncope Narrative: 52-year-old female with PMH of Jade's thyroiditis and paroxysmal SVT who had an ablation 21 years ago developed sick sinus syndrome but never had a pacemaker placed.? Patient presents today with complaint of 2 syncopal episodes and a 3rd near syncopal episode that occurred today. She did not have palpitations or chest pain. Without fever or chills or any other symptoms. FORMERLY [facility] Medical History (Updated 06/12/23 @ 06:28 by John Pineda MD) Closed fracture of cuneiform bone of left ankle Jade's thyroiditis PSVT (paroxysmal supraventricular tachycardia) Sick sinus syndrome Surgical History History of radiofrequency ablation procedure for cardiac arrhythmia Family History Other No pertinent family history Social History Smoking Status: Never smoker Meds Home Medications and Allergies Home Medications Medication Instructions Recorded Confirmed Type cholecalciferol (vitamin D3) 125 5,000 unit PO WEEKLY 12/11/18 12/11/18 History mcg (5,000 unit) tablet (Vitamin D3) hydroxyzine pamoate 50 mg capsule 50 mg PO TID-QID PRN anxiety #20 12/11/18 Rx (Vistaril) caps multivitamin 1 tab PO DAILY 12/11/18 12/11/18 History spironolactone 100 mg tablet 100 mg PO BID PRN as directed 12/11/18 12/11/18 History thyroid (pork) 30 mg tablet 75 mg PO DAILY 12/11/18 12/11/18 History spironolactone 100 mg tablet 100 mg PO BID 05/01/19 05/01/19 History thyroid (pork) 60 mg tablet 60 mg PO DAILY 05/01/19 05/01/19 History bupropion HCl 300 mg 24 hr tablet, 150 mg PO DAILY #30 tabs 06/12/23 12/11/18 Rx extended release Allergies Allergy/AdvReac Type Severity Reaction Status Date / Time benzonatate Allergy Unknown AIRWAY Verified 06/11/23 21:33 [From TESSALON PERLES] CONSTRICTION prochlorperazine Allergy Unknown ANXIETY Verified 06/11/23 21:33 [From COMPAZINE] promethazine [From PHENERGAN] Allergy Unknown Hallucinati Verified 06/11/23 21:33 ng Review of Systems Constitutional Comments: w/o fever, chills, sweats, weight changes Cardiovascular Comments: she has no palpitations or chest pain Respiratory Comments: not short of breath Gastrointestinal Comments: resolved nausea Genitourinary Comments: w.o dysuria Endocrine Comments: w/o heat or cold intolerance Hematologic/Lymphatic Comments: w.o easy bruising or bleeding Exam Vital Signs (past 8 hours): - 06/11/23 23:30 06/11/23 23:30 06/12/23 00:00 Pulse Rate 73 Respiratory Rate 22 Blood Pressure 96/62 103/72 Pulse Oximetry 95 06/12/23 00:00 06/12/23 00:30 06/12/23 00:30 Pulse Rate 74 68 Respiratory Rate 17 17 Blood Pressure 112/64 Pulse Oximetry 98 98 06/12/23 01:00 06/12/23 01:00 06/12/23 01:30 Pulse Rate 70 Respiratory Rate 18 Blood Pressure 102/63 104/65 Pulse Oximetry 98 06/12/23 01:30 06/12/23 02:00 06/12/23 02:00 Pulse Rate 79 75 Respiratory Rate 19 18 Blood Pressure 106/64 Pulse Oximetry 97 97 06/12/23 02:30 06/12/23 02:30 06/12/23 03:00 Pulse Rate 81 Respiratory Rate 21 Blood Pressure 122/77 103/56 L Pulse Oximetry 96 06/12/23 03:00 06/12/23 03:30 06/12/23 03:30 Pulse Rate 75 73 Respiratory Rate 20 20 Blood Pressure 91/57 L Pulse Oximetry 98 96 06/12/23 04:00 06/12/23 04:03 06/12/23 04:03 Pulse Rate 74 75 Respiratory Rate 20 16 Blood Pressure 121/59 L Pulse Oximetry 96 97 06/12/23 04:30 Pulse Rate 89 Respiratory Rate 37 H Blood Pressure Pulse Oximetry Oxygen Delivery Method Room Air Const Other: sitting in bed in no distress Eyes Other: maylin, eomi Neck Other: w/o thyromegaly Resp Other: CTA Cardio Other: RRR, no murmurs GI Other: abdomen not distended Skin Other: w/o rashes Extrem Other: w/o swelling Psych Other: appropriate mood and affect, lucid Objective Labs 06/12/23 08:00 06/12/23 08:00 Labs: Laboratory Results - last 24 hr 06/11/23 06/11/23 06/11/23 21:49 21:49 21:49 WBC 5.2 RBC 4.24 Hgb 13.4 Hct 39.1 MCV 92.2 MCH 31.6 MCHC 34.3 RDW 13.0 Plt Count 272 Neut % (Auto) 43.0 L Lymph % (Auto) 43.2 H [place] % (Auto) 11.7 Eos % (Auto) 1.4 L Baso % (Auto) 0.7 Neut # (Auto) 2200 Lymph # (Auto) 2200 [place] # (Auto) 600 Eos # (Auto) 100 Baso # (Auto) 0 PT 12.6 INR 1.1 APTT 32 Sodium 139 Potassium 3.5 Chloride 104 Carbon Dioxide 26 BUN 20 H Creatinine 0.78 Estimated GFR > 60 BUN/Creatinine Ratio 25.6 H Glucose 84 Calcium 9.1 Magnesium 1.9 Total Bilirubin 0.5 AST 26 ALT 21 Alkaline Phosphatase 57 Total Creatine Kinase 87 Troponin I < 0.012 Total Protein 7.2 Albumin 4.2 Globulin 3.0 Albumin/Globulin Ratio 1.4 Lipase 132 TSH Urine RBC Urine WBC Ur Squamous Epith Cells Urine Bacteria Ur Culture Indicated? SARS-CoV-2 (PCR) 06/11/23 06/12/23 06/12/23 21:49 00:07 00:07 WBC RBC Hgb Hct MCV MCH MCHC RDW Plt Count Neut % (Auto) Lymph % (Auto) [place] % (Auto) Eos % (Auto) Baso % (Auto) Neut # (Auto) Lymph # (Auto) [place] # (Auto) Eos # (Auto) Baso # (Auto) PT INR APTT Sodium Potassium Chloride Carbon Dioxide BUN Creatinine Estimated GFR BUN/Creatinine Ratio Glucose Calcium Magnesium Total Bilirubin AST ALT Alkaline Phosphatase Total Creatine Kinase Troponin I < 0.012 Total Protein Albumin Globulin Albumin/Globulin Ratio Lipase TSH 0.79 Urine RBC Urine WBC Ur Squamous Epith Cells Urine Bacteria Ur Culture Indicated? SARS-CoV-2 (PCR) Positive H 09/24/23 00:22 WBC RBC Hgb Hct MCV MCH MCHC RDW Plt Count Neut % (Auto) Lymph % (Auto) [place] % (Auto) Eos % (Auto) Baso % (Auto) Neut # (Auto) Lymph # (Auto) [place] # (Auto) Eos # (Auto) Baso # (Auto) PT INR APTT Sodium Potassium Chloride Carbon Dioxide BUN Creatinine Estimated GFR BUN/Creatinine Ratio Glucose Calcium Magnesium Total Bilirubin AST ALT Alkaline Phosphatase Total Creatine Kinase Troponin I Total Protein Albumin Globulin Albumin/Globulin Ratio Lipase TSH Urine RBC None seen Urine WBC None seen Ur Squamous Epith Cells None seen Urine Bacteria None seen Ur Culture Indicated? Cult not indicated SARS-CoV-2 (PCR) Assessment & Plan Assessment and plan (1) Syncope: Status: Acute Plan: Likely related to recurrent SVTs or some other arrhythmia - telemetry monitoring - ED attending consulted with cardiology, [facility] as patient was following with Dr. Weber until several years ago and with Dr. Dowell covering for cardiology - transfer with recurrence of syncope or arrhythmia on a monitor - cardiology referral (2) PSVT (paroxysmal supraventricular tachycardia): Status: Acute Plan: Hx of. Presumably ongoing. She had ablation 21 years ago. (3) Hypothyroidism (acquired): Status: Acute Plan: armour thyroid, iatrogenic (4) Anxiety and depression: Status: Acute Plan: hydroxyzine prn, wellbutrin
[2023-06-12] MEDS: buPROPion XL 150 MG TAB 300 MG PO (08:07)
[2023-06-12] MEDS: THYROID, PORK 30 MG TABLET 75 MG PO (08:07)
[2023-06-12] MEDS: SPIRONOLACTONE 25 MG TABLET 100 MG PO (08:08)
[2023-06-12 08:12] LABS: Add Manual Diff / Slide Review NO; Basophils Absolute Auto 0 /uL (0-100); Basophils Percent Auto 0.9 % (0-2); Eosinophils Absolute Auto 100 /uL (0-450); Eosinophils Percent Auto 1.4 % (2-4); Hematocrit 34.2 % (36-46); Hemoglobin 12.1 g/dL (12.0-16.0); Lymphocytes Absolute Auto 1900 /uL (1100-4500); Mean Corpuscular HGB Conc 35.3 % (30-36); Mean Corpuscular Hemoglobin 32.2 PG (26-34); Mean Corpuscular Volume 91.2 fL (80-100); Monocytes Absolute Auto 400 /uL (0-900); Monocytes Percent Auto 10.6 % (3-14); Neutrophils Absolute Auto 1500 /uL (1500-7000); Neutrophils Percent Auto 38.1 % (50-75); Platelet Count 233 X10^3/uL (150-400); Red Blood Cell Count 3.75 X10^6/uL (4.0-5.2); Red Cell Distribution Width 12.6 % (11.6-14.8); White Blood Cell Count 3.8 X10^3/uL (4.5-11.0)
[2023-06-12 08:20] LABS: Blood Urea Nitrogen 14 mg/dL (7-17); Calcium 8.9 mg/dL (8.4-10.2); Carbon Dioxide 23 mmol/L (22-32); Chloride 111 mmol/L (98-107); Estimated Glomerular Filt Rate > 60 mL/min (>60); Glucose 92 mg/dL (70-100); HEMOLYSIS < 15 (0-50); Potassium 3.6 mmol/L (3.4-5.1); Sodium 140 mmol/L (137-145)
[2023-06-12] MEDS: MAGNESIUM SULFATE 2 GM/50 ML PIGGYBACK IV (09:19)
[2023-06-12] MEDS: POTASSIUM CHLORIDE 20 MEQ TAB 40 MEQ PO (09:19)
--- NOTE | 2023-06-12 10:18 | PC.NURSE ---
Pt able to walk to the bathroom and back to her room without syncopal episode. She states she has had syncopal episodes while walking around, never at rest. Patient A&Ox4, her service dog Rogers at bedside.
--- NOTE | 2023-06-12 11:41 | PC.NURSE ---
Patient went to the bathroom and then went outside with her service dog and the ER DOUBLE NEEDLE STITCHER to walk the dog/go potty. Pt back in room with service dog.
[2023-06-12] MEDS: ACETAMINOPHEN 325 MG TABLET 650 MG PO (12:47)
--- NOTE | 2023-06-12 13:33 | PM.DS.1 ---
History of Present Illness History of Present Illness Date Patient Seen: 06/12/23 Chief complaint: Heart problems, Syncope Narrative: 52-year-old female with PMH of Jade's thyroiditis and paroxysmal SVT who had an ablation 21 years ago developed sick sinus syndrome but never had a pacemaker placed.? Patient presents today with complaint of 2 syncopal episodes and a 3rd near syncopal episode that occurred today. She did not have palpitations or chest pain. Without fever or chills or any other symptoms. Discharge Providers Provider Date of admission: 06/12/23 03:37 Discharge Date: 06/12/23 Discharge provider: Trav Singh, DO Summary Hospital Course Discharge Diagnosis: (1) Syncope: ?Status:?Acute ?Plan: Likely related to recurrent SVTs or some other arrhythmia as patient has h/o syncope. Said she hasn't had issues with passing out for 6 years. Had debated getting a pacemaker but wasn't ready. - telemetry monitoring - ED attending consulted with cardiology, [facility] as patient was following with Dr. Weber until several years ago and with Dr. Dowell covering for cardiology who recommended admission for tele and echo - patient had no arrythmias on tele - she preferred to have echo done as outpatient with Dr. Weber and will reach out to his office for an appointment to discuss a pacemaker (2) PSVT (paroxysmal supraventricular tachycardia): ?Status:?Acute ?Plan: Hx of. Presumably ongoing. She had ablation 21 years ago. (3) Hypothyroidism (acquired): ?Status:?Acute ?Plan: armour thyroid, iatrogenic (4) Anxiety and depression: ?Status:?Acute ?Plan: hydroxyzine prn, wellbutrin Hospital Course: Admitted for sycope x3 at home. Presumed to be due to arrythmia due to history of SVT and syncope in past. Electrolytes were normal. Cardiology rec pacemaker in the past but she was hesitant. Tele overnight showed no arrythmias. Echo ordered, but patient did not want to wait for it but instead get it as outpatient with her manager mobile. She will call Dr. Weber for an appt and discuss a pacemaker. Exam Vital Signs (past 8 hours): - 06/12/23 07:00 06/12/23 07:30 06/12/23 07:56 Pulse Rate 68 76 68 Respiratory Rate 16 Blood Pressure Pulse Oximetry 97 Oxygen Delivery Method 06/12/23 07:56 06/12/23 08:00 06/12/23 08:30 Pulse Rate 80 78 Respiratory Rate 26 H 18 Blood Pressure 100/65 Pulse Oximetry Oxygen Delivery Method 06/12/23 09:00 06/12/23 09:34 06/12/23 10:00 Pulse Rate 94 H 74 68 Respiratory Rate 24 Blood Pressure Pulse Oximetry Oxygen Delivery Method 06/12/23 10:30 06/12/23 11:00 06/12/23 11:43 Pulse Rate 75 73 76 Respiratory Rate 20 Blood Pressure Pulse Oximetry Oxygen Delivery Method 06/12/23 12:00 06/12/23 12:30 06/12/23 12:50 Pulse Rate 76 85 73 Respiratory Rate 19 33 H 23 Blood Pressure Pulse Oximetry 99 Oxygen Delivery Method 06/12/23 12:50 06/12/23 13:00 Pulse Rate 73 Respiratory Rate 19 Blood Pressure 103/59 L Pulse Oximetry 98 Oxygen Delivery Method Room Air Oxygen Delivery Method Room Air Const Other: sitting in bed in no distress Eyes Other: maylin, eomi Neck Other: w/o thyromegaly Resp Other: CTA Cardio Other: RRR, no murmurs GI Other: abdomen not distended Skin Other: w/o rashes Extrem Other: w/o swelling Psych Other: appropriate mood and affect, lucid Objective Labs 06/12/23 08:00 06/12/23 08:00 Labs: Laboratory Results - last 24 hr 06/11/23 06/11/23 06/11/23 21:49 21:49 21:49 WBC 5.2 RBC 4.24 Hgb 13.4 Hct 39.1 MCV 92.2 MCH 31.6 MCHC 34.3 RDW 13.0 Plt Count 272 Neut % (Auto) 43.0 L Lymph % (Auto) 43.2 H [place] % (Auto) 11.7 Eos % (Auto) 1.4 L Baso % (Auto) 0.7 Neut # (Auto) 2200 Lymph # (Auto) 2200 [place] # (Auto) 600 Eos # (Auto) 100 Baso # (Auto) 0 PT 12.6 INR 1.1 APTT 32 Sodium 139 Potassium 3.5 Chloride 104 Carbon Dioxide 26 BUN 20 H Creatinine 0.78 Estimated GFR > 60 BUN/Creatinine Ratio 25.6 H Glucose 84 Calcium 9.1 Magnesium 1.9 Total Bilirubin 0.5 AST 26 ALT 21 Alkaline Phosphatase 57 Total Creatine Kinase 87 Troponin I < 0.012 Total Protein 7.2 Albumin 4.2 Globulin 3.0 Albumin/Globulin Ratio 1.4 Lipase 132 TSH Urine RBC Urine WBC Ur Squamous Epith Cells Urine Bacteria Ur Culture Indicated? SARS-CoV-2 (PCR) 06/11/23 06/12/23 06/12/23 21:49 00:07 00:07 WBC RBC Hgb Hct MCV MCH MCHC RDW Plt Count Neut % (Auto) Lymph % (Auto) [place] % (Auto) Eos % (Auto) Baso % (Auto) Neut # (Auto) Lymph # (Auto) [place] # (Auto) Eos # (Auto) Baso # (Auto) PT INR APTT Sodium Potassium Chloride Carbon Dioxide BUN Creatinine Estimated GFR BUN/Creatinine Ratio Glucose Calcium Magnesium Total Bilirubin AST ALT Alkaline Phosphatase Total Creatine Kinase Troponin I < 0.012 Total Protein Albumin Globulin Albumin/Globulin Ratio Lipase TSH 0.79 Urine RBC Urine WBC Ur Squamous Epith Cells Urine Bacteria Ur Culture Indicated? SARS-CoV-2 (PCR) Positive H 06/12/23 06/12/23 06/12/23 00:22 08:00 08:00 WBC 3.8 L RBC 3.75 L Hgb 12.1 Hct 34.2 L MCV 91.2 MCH 32.2 MCHC 35.3 RDW 12.6 Plt Count 233 Neut % (Auto) 38.1 L Lymph % (Auto) 49.0 H [place] % (Auto) 10.6 Eos % (Auto) 1.4 L Baso % (Auto) 0.9 Neut # (Auto) 1500 Lymph # (Auto) 1900 [place] # (Auto) 400 Eos # (Auto) 100 Baso # (Auto) 0 PT INR APTT Sodium Potassium Chloride Carbon Dioxide BUN Creatinine Estimated GFR BUN/Creatinine Ratio Glucose Calcium Magnesium 2.0 Total Bilirubin AST ALT Alkaline Phosphatase Total Creatine Kinase Troponin I Total Protein Albumin Globulin Albumin/Globulin Ratio Lipase TSH Urine RBC None seen Urine WBC None seen Ur Squamous Epith Cells None seen Urine Bacteria None seen Ur Culture Indicated? Cult not indicated SARS-CoV-2 (PCR) 06/12/23 08:00 WBC RBC Hgb Hct MCV MCH MCHC RDW Plt Count Neut % (Auto) Lymph % (Auto) [place] % (Auto) Eos % (Auto) Baso % (Auto) Neut # (Auto) Lymph # (Auto) [place] # (Auto) Eos # (Auto) Baso # (Auto) PT INR APTT Sodium 140 Potassium 3.6 Chloride 111 H Carbon Dioxide 23 BUN 14 Creatinine 0.61 Estimated GFR > 60 BUN/Creatinine Ratio 23.0 H Glucose 92 Calcium 8.9 Magnesium Total Bilirubin AST ALT Alkaline Phosphatase Total Creatine Kinase Troponin I Total Protein Albumin Globulin Albumin/Globulin Ratio Lipase TSH Urine RBC Urine WBC Ur Squamous Epith Cells Urine Bacteria Ur Culture Indicated? SARS-CoV-2 (PCR) [facility] Medical History (Updated 06/12/23 @ 06:28 by John Pineda MD) Closed fracture of cuneiform bone of left ankle Jade's thyroiditis PSVT (paroxysmal supraventricular tachycardia) Sick sinus syndrome Surgical History History of radiofrequency ablation procedure for cardiac arrhythmia Family History Other No pertinent family history Social History Smoking Status: Never smoker Discharge Plan Discharge Plan Patient Disposition: Home Provider Discharge Comment: Please get an appt with your manager mobile for an echo. I think you really need a pacemaker. Discharge orders & Medications Prescriptions: Continued spironolactone 100 mg tablet 100 mg PO BID PRN (Reason: as directed) thyroid (pork) 30 mg tablet 75 mg PO DAILY Patient Comments: take 2 and 1/2 tablets by mouth once daily multivitamin Tablet 1 tab PO DAILY cholecalciferol (vitamin D3) [Vitamin D3] 5,000 unit Tablet 5,000 unit PO WEEKLY hydroxyzine pamoate [Vistaril] 50 mg capsule 50 mg PO TID-QID PRN (Reason: anxiety) Qty: 20 0RF spironolactone 100 mg tablet 100 mg PO BID thyroid (pork) 60 mg tablet 60 mg PO DAILY Changed bupropion HCl 300 mg tablet extended release 24 hr 150 mg PO DAILY Qty: 30 0RF Discontinued amoxicillin-pot clavulanate [Augmentin] 875-125 mg tablet 1 tab PO Q12H Qty: 20 0RF Visit Report/Discharge Packet Stand Alone Forms: Patient Portal/API, Stroke Signs & Symptoms Discharge Data Attending Provider: John Pineda Admit Date/Time: 06/12/23 03:37
== END 2023-06-12 13:35 | disposition home or self-care (01) ==
LOC: ED 06-12 03:33 → AC 06-12 03:37
PROVIDERS: Emergency Medicine; Student in an Organized Health Care Education/Training Program; Admitting Provider Internal Medicine; Emergency Provider Internal Medicine; Visit Provider Internal Medicine
DX: R55 Syncope and collapse (principal); I47.1 Supraventricular tachycardia; U07.1 COVID-19; F41.9 Anxiety disorder, unspecified; F32.A Depression, unspecified; E06.3 Autoimmune thyroiditis
CPT/HCPCS: 36415; 70450; 71045; 72125; 80048; 80053; 81003; 81015; 82550; 83690; 83735; 84443; 84484; 85025; 85610; 85730; 87635; 93005; 96360; 96361; 99284; C9803; G0378; J3475

== ENCOUNTER → 2023-07-12 08:08 | Outpatient (CLI) | payer OTHER, MEDICAID, SELFPAY ==
--- NOTE | 2023-07-12 | DI.ECHO.S_ITS ---
[facility] +---------+ : : [address] : : : : [id number] : : : : Phone: [phone]+ Echocardiogram Report + + :Name: MAE LOPEZ Study Date: 07/12/2023 Height: 64 in : :[facility] ReadingLocation: Weight: 130 lb : : Gender: Female BSA: 1.6 m2 : :: 1970 Age: 52 yrs BP: 114/74 mmHg: :Reason For Study: Syncope : :Ordering Physician: KIRILL, : :YARA Performed By: Rosanne Fall : :Referring: YARA ROY : + + Interpretation Summary The left ventricle is normal in size. Left ventricular systolic function is borderline reduced. The ejection fraction is estimated to be 45-50%. Diastolic parameters suggest a relaxation abnormality of the left ventricle, consistent with probable normal filling pressures. The right ventricle is normal in size and function. The left atrium is borderline dilated. The atrial septum is aneurysmal. Injection of contrast with valsalva documented an interatrial shunt. There is no significant valvular heart disease. The ascending aorta is at the upper limits of normal in size. Procedure: A two-dimensional transthoracic echocardiogram with color flow and Doppler was performed. The study quality was technically adequate. Most of the acoustic windows were suboptimal, but the best imaging was obtained from the apical window. There is no prior echocardiogram noted for this patient. A saline contrast injection was performed to assess for cardiac shunting. The patient was in normal sinus rhythm during the exam. Left Ventricle: The left ventricle is normal in size. Left ventricular systolic function is borderline reduced. The ejection fraction is estimated to be 45-50%. There is mild global hypokinesis of the left ventricle. Diastolic parameters suggest a relaxation abnormality of the left ventricle, consistent with probable normal filling pressures. Right Ventricle: The right ventricle is normal in size and function. Atria: The left atrium is borderline dilated. Right atrial size is normal. The atrial septum is aneurysmal. Injection of contrast with valsalva documented an interatrial shunt. Mitral Valve: The mitral valve leaflets appear mildly thickened, but open well. There is no mitral valve stenosis. There is trace mitral regurgitation. Aortic Valve: The aortic valve is not well visualized. There is no aortic valve stenosis. No aortic regurgitation is present. Tricuspid Valve: The tricuspid valve is normal. There is no tricuspid stenosis. There is trace tricuspid regurgitation. Pulmonic Valve: The pulmonic valve is not well visualized. There is no pulmonic valvular stenosis. There is trace pulmonic regurgitation. There is no significant valvular heart disease. Great Vessels: The aortic root is borderline dilated. The ascending aorta is at the upper limits of normal in size. The pulmonary artery is normal size. The IVC is of normal diameter and collapses greater than 50% with a sniff. This suggests a low right atrial pressure of 3 mm Hg. Pericardium/ Pleura There is no pericardial effusion. There is no pleural effusion. MMode/2D Measurements & Calculations Ao root diam: 3.8 cm LA A2 area: 17.6 cm2 asc Aorta Diam: 3.5 cm LA A4 area: 17.4 cm2 LA length (vol): 5.1 cm LA vol: 51.5 ml LA vol index: 31.6 ml/m2 RA long axis: 4.3 cm RVD1 (basal): 3.0 cm RA area: 10.7 cm2 RA vol: 22.7 ml RA : 13.9 ml/m2 IVC diam: 1.8 cm LVLs ap4: 5.7 cm LVLd ap2: 6.9 cm LVLs ap2: 5.8 cm TAPSE_phl: 2.3 cm Doppler Measurements & Calculations Ao V2 max: 99.8 cm/sec LVOT Max Jayme: 94.5 cm/sec Ao V2 mean: 66.9 cm/sec LV V1 max P.6 mmHg Ao max P.0 mmHg LV V1 VTI: 18.3 cm Ao mean P.0 mmHg sev ratio: 0.82 Ao V2 VTI: 22.2 cm MV E max jayme: 41.3 cm/sec TR max jayme: 181.0 cm/sec MV A max jayme: 52.3 cm/sec TR max P.1 mmHg MV E/A: 0.79 PA V2 max: 60.3 cm/sec Med Peak E' Jayme: 8.3 cm/sec PA V2 mean: 42.9 cm/sec E/E' med: 4.9 PA mean P.0 mmHg MV dec time: 0.30 sec PA pr(Accel): 47.0 mmHg AV VR_phl: 0.95 Reading Physician:04:02 PM
== END ==
PROVIDERS: Referring Provider Registered Nurse; Visit Provider Registered Nurse
DX: R55 Syncope and collapse (principal)
CPT/HCPCS: 93306

== ENCOUNTER 2024-10-02 18:44 | Emergency (ER) | payer BC, SELFPAY ==
[2024-10-02] VITALS (15 sets, daily range): BP systolic 96–139; BP diastolic 56–71; PULSE 55–81; RESP 13–23; TEMP 37.1; O2SAT 99–100; BMI 19.7
--- NOTE | 2024-10-02 18:47 | DI.RAD.S_ITS ---
PROCEDURE: XR CHEST 1V INDICATIONS: chest pain TECHNIQUE: One view of the chest was acquired. COMPARISON: [facility], CR, XR CHEST 1V, 06/11/2023, 21:38. FINDINGS: Surgical changes and devices: Lead less pacer is seen. Lungs and pleura: Lungs are clear. No pleural effusions or pneumothorax. Mediastinum: Mediastinal contours appear normal. Heart size is normal. Bones and chest wall: No suspicious bony lesions. Overlying soft tissues appear unremarkable. IMPRESSION: No acute cardiopulmonary pathology. Dictated by: Nick Burgos M.D. on 10/02/2024 at 19:17 Approved by: Nick Burgos M.D. on 10/02/2024 at 19:18
--- NOTE | 2024-10-02 18:47 | EKG_ITS ---
[address] [address] Test Date: 2024-10-02 Pat Name: Tila Francisco Department: [facility] Room: Gender: Female City Constable: BRISEIDA MART : 1970 Requested By: Order Number: [id number] Reading MD: Kennedy Dupree MD Measurements Intervals [place] Rate: 62 P: 65 [place]: 186 QRS: 67 QRSD: 88 T: 50 QT: 424 QTc: 430 Interpretive Statements Normal sinus rhythm Electronically Signed On 10-03-2024 8:43:08 PST by Kennedy Dupree MD
--- NOTE | 2024-10-02 19:11 | ED_ITS ---
HPI - General Adult General Chief complaint: Arrhythmia/Palpitations Stated complaint: Dizzyness, Vision Changes, Irregular Heartbeat Time Seen by Provider: 10/02/24 18:54 Source: patient, RN notes reviewed and old records reviewed Mode of arrival: Family Vehicle Limitations: no limitations History of Present Illness HPI narrative: 53-year-old female with a history of SVT and reported sick sinus syndrome, hypertension, anxiety and hypothyroidism who presents with complaint of episode where she felt like rather than having fast heartbeat her heartbeat was sort of hesitant or having some pauses while she was driving she felt very lightheaded. She states she has had syncopal episodes in the past is following with Cardiology and scheduled to have an ablation on the [address] Mcleod. Patient states she did not pass out but got sort of tunneled vision. She was driving her car so she stopped her vehicle had this sensation felt like it was sort of hard to breathe but denies any chest pain. States it started about 6:16 p.m. this evening lasted until she arrived here feels improved although she was still feels like there sort of but has not NC in her rhythm. Patient states no recent syncopal episodes no other symptoms she states everything else has been normal no fevers chills cough cold or congestive no other GI or urinary symptoms. Patient is on Wellbutrin, [place] thyroid Cozaar and clonazepam has had prior ablation states she had a recent echo with ejection fraction of 64% that was obtained prior to her scheduled ablation. Notes that she currently has a loop recorder in place. No tobacco, alcohol or recreational drugs. Dr. Mcleod is her community service representative. Related Data Home Medications Medication Instructions Recorded Confirmed cholecalciferol (vitamin D3) 125 5,000 unit PO WEEKLY 12/11/18 12/11/18 mcg (5,000 unit) tablet (Vitamin D3) multivitamin 1 tab PO DAILY 12/11/18 12/11/18 spironolactone 100 mg tablet 100 mg PO BID PRN as directed 12/11/18 12/11/18 thyroid (pork) 30 mg tablet 75 mg PO DAILY 12/11/18 12/11/18 spironolactone 100 mg tablet 100 mg PO BID 05/01/19 05/01/19 thyroid (pork) 60 mg tablet 60 mg PO DAILY 05/01/19 05/01/19 Previous Rx's Medication Instructions Recorded hydroxyzine pamoate 50 mg capsule 50 mg PO TID-QID PRN anxiety #20 12/11/18 (Vistaril) caps bupropion HCl 300 mg 24 hr tablet, 150 mg (1/2 x 300 mg) PO DAILY #30 06/12/23 extended release tabs Allergies Allergy/AdvReac Type Severity Reaction Status Date / Time benzonatate Allergy Unknown AIRWAY Verified 06/11/23 21:33 [From TESSALON PERLES] CONSTRICTION prochlorperazine Allergy Unknown ANXIETY Verified 06/11/23 21:33 [From COMPAZINE] promethazine [From PHENERGAN] Allergy Unknown Hallucinati Verified 06/11/23 21:33 ng Review of Systems Review of Systems ROS Unobtainable: All systems reviewed & are unremarkable except as noted in HPI and below Patient History Medical History Sick sinus syndrome PSVT (paroxysmal supraventricular tachycardia) Jade's thyroiditis Closed fracture of cuneiform bone of left ankle Surgical History History of radiofrequency ablation procedure for cardiac arrhythmia Family History Other No pertinent family history Social History Smoking Status: Never smoker Smoking Status: Never smoker alcohol intake frequency: 0-2 drinks per day Exam Narrative Exam Narrative: GENERAL: Alert and oriented x three, well-appearing female in mild distress HEENT: Head normocephalic, atraumatic, EOMI, pupils reactive, face symmetric, moist mucous membranes NECK: Supple, full range of motion CARDIOVASCULAR: Regular rate and rhythm without murmurs, rubs or gallops. No edema. No JVD. RESPIRATORY: Breath sounds equal bilaterally, no wheezes rales or rhonchi. No tachypnea or accessory muscle use ABDOMEN: Soft, nontender. Normoactive bowel sounds all 4 quadrants. No guarding or rebound, rigidity, no mass : No CVA tenderness EXTREMITIES: Normal range of motion, no clubbing or edema. Neurovascularly intact NEUROLOGICAL: Cranial nerves II through XII grossly intact. Moving all extremities SKIN: Warm, dry, no petechiae, no rashes or lesions. Initial Vital Signs Initial Vital Signs: Vital Signs Temperature 98.7 F 10/02/24 18:48 Pulse Rate 69 10/02/24 18:48 Respiratory Rate 14 10/02/24 18:48 Blood Pressure 112/65 10/02/24 18:48 Pulse Oximetry 99 10/02/24 18:48 Oxygen Delivery Method Room Air 10/02/24 18:48 Course Orders Ordered: ED Orders 10/02/24 18:47 XR chest 1V Stat EKG-12 Lead Stat 10/02/24 19:01 Complete Blood Count AUTO DIFF Stat Comprehensive Metabolic Panel Stat Lipase Stat Magnesium Stat NT-proBNP (BNP-Adult 18+) Stat PTT Partial Thromboplastin Livan Stat Prothrombin Time INR Stat Troponin & CK Cardiac Panel Stat 10/02/24 19:07 D Dimer Stat 10/02/24 21:10 EKG-12 Lead Stat 10/02/24 21:29 Trop I [Troponin I] Stat Discontinued Medications Aspirin (Aspirin 81 Mg Chew Tab) 324 mg PO NOW ONE Stop: 10/02/24 18:48 Last Admin: 10/02/24 19:45 Dose: 324 mg Documented By: VELVET Sodium Chloride (Normal Saline 0.9%) 1,000 mls @ 1,000 mls/hr IV BOLUS ONE Stop: 10/02/24 22:17 Last Infusion: 10/02/24 22:44 Dose: Infused Documented By: Admin: 10/02/24 21:39 Dose: 1,000 mls/hr Documented By: VELVET Vital Signs Vital signs: Vital Signs - 8 hr 10/02/24 18:58 10/02/24 19:00 10/02/24 19:00 Pulse Rate 64 66 Pulse Rate [Orthostatic Lying] Pulse Rate [Orthostatic Sitting] Pulse Rate [Orthostatic Standing] Respiratory Rate 14 18 Blood Pressure 111/65 Blood Pressure [Orthostatic Lying] Blood Pressure [Orthostatic Sitting] Blood Pressure [Orthostatic Standing] Pulse Oximetry 100 100 Oxygen Delivery Method Room Air 10/02/24 19:30 10/02/24 19:30 10/02/24 20:00 Pulse Rate 69 81 Pulse Rate [Orthostatic Lying] Pulse Rate [Orthostatic Sitting] Pulse Rate [Orthostatic Standing] Respiratory Rate 17 23 Blood Pressure 97/61 Blood Pressure [Orthostatic Lying] Blood Pressure [Orthostatic Sitting] Blood Pressure [Orthostatic Standing] Pulse Oximetry 99 99 Oxygen Delivery Method Room Air Room Air 10/02/24 20:00 10/02/24 20:30 10/02/24 20:30 Pulse Rate 76 Pulse Rate [Orthostatic Lying] Pulse Rate [Orthostatic Sitting] Pulse Rate [Orthostatic Standing] Respiratory Rate 21 Blood Pressure 103/67 96/66 Blood Pressure [Orthostatic Lying] Blood Pressure [Orthostatic Sitting] Blood Pressure [Orthostatic Standing] Pulse Oximetry 99 Oxygen Delivery Method Room Air 10/02/24 21:00 10/02/24 21:00 10/02/24 21:06 Pulse Rate 72 80 Pulse Rate [Orthostatic Lying] Pulse Rate [Orthostatic Sitting] Pulse Rate [Orthostatic Standing] Respiratory Rate 21 13 Blood Pressure 104/56 L Blood Pressure [Orthostatic Lying] Blood Pressure [Orthostatic Sitting] Blood Pressure [Orthostatic Standing] Pulse Oximetry 99 100 Oxygen Delivery Method Room Air 10/02/24 21:06 10/02/24 21:13 10/02/24 21:13 Pulse Rate 55 L Pulse Rate [Orthostatic Lying] Pulse Rate [Orthostatic Sitting] Pulse Rate [Orthostatic Standing] Respiratory Rate 16 Blood Pressure 139/67 111/58 L Blood Pressure [Orthostatic Lying] Blood Pressure [Orthostatic Sitting] Blood Pressure [Orthostatic Standing] Pulse Oximetry 99 Oxygen Delivery Method Room Air 10/02/24 21:14 10/02/24 21:20 10/02/24 21:20 Pulse Rate 64 Pulse Rate [Orthostatic Lying] 56 L Pulse Rate [Orthostatic Sitting] 63 Pulse Rate [Orthostatic Standing] 72 Respiratory Rate 17 Blood Pressure 108/64 Blood Pressure [Orthostatic Lying] 111/58 L Blood Pressure [Orthostatic Sitting] 108/64 Blood Pressure [Orthostatic Standing] 117/71 Pulse Oximetry 99 Oxygen Delivery Method Room Air 10/02/24 21:22 10/02/24 21:22 10/02/24 21:30 Pulse Rate 72 58 L Pulse Rate [Orthostatic Lying] Pulse Rate [Orthostatic Sitting] Pulse Rate [Orthostatic Standing] Respiratory Rate 13 17 Blood Pressure 117/71 Blood Pressure [Orthostatic Lying] Blood Pressure [Orthostatic Sitting] Blood Pressure [Orthostatic Standing] Pulse Oximetry 100 100 Oxygen Delivery Method Room Air Room Air 10/02/24 21:30 10/02/24 22:00 10/02/24 22:00 Pulse Rate 61 Pulse Rate [Orthostatic Lying] Pulse Rate [Orthostatic Sitting] Pulse Rate [Orthostatic Standing] Respiratory Rate 15 Blood Pressure 109/60 102/59 L Blood Pressure [Orthostatic Lying] Blood Pressure [Orthostatic Sitting] Blood Pressure [Orthostatic Standing] Pulse Oximetry 99 Oxygen Delivery Method Room Air 10/02/24 22:30 10/02/24 22:30 Pulse Rate 75 Pulse Rate [Orthostatic Lying] Pulse Rate [Orthostatic Sitting] Pulse Rate [Orthostatic Standing] Respiratory Rate 22 Blood Pressure 107/71 Blood Pressure [Orthostatic Lying] Blood Pressure [Orthostatic Sitting] Blood Pressure [Orthostatic Standing] Pulse Oximetry 99 Oxygen Delivery Method Room Air Medical Decision Making Lab Data 10/02/24 19:01 10/02/24 19:01 Labs: Lab Results 10/02/24 10/02/24 10/02/24 Range/Units 19:01 19:07 21:29 WBC 4.9 (4.5-11.0) X10^3/uL RBC 4.07 (4.0-5.2) X10^6/uL Hgb 13.2 (12.0-16.0) g/dL Hct 38.6 (36-46) % MCV 94.8 (80-100) fL MCH 32.4 (26-34) PG MCHC 34.2 (30-36) % RDW 12.7 (11.6-14.8) % Plt Count 271 (150-400) X10^3/uL Neut % (Auto) 44.2 L (50-75) % Lymph % (Auto) 46.5 H (25-40) % [place] % (Auto) 7.3 (3-14) % Eos % (Auto) 1.3 L (2-4) % Baso % (Auto) 0.7 (0-2) % Neut # (Auto) 2200 (7468-6088) /uL Lymph # (Auto) 2300 (8889-1962) /uL [place] # (Auto) 400 (0-900) /uL Eos # (Auto) 100 (0-450) /uL Baso # (Auto) 0 (0-100) /uL PT 11.6 (9.4-12.5) SECONDS INR 1.0 (0.9-1.3) APTT 36 (25.1-36.5) SECONDS D-Dimer < 215 (<500) ng/ml Sodium 140 (137-145) mmol/L Potassium 3.8 (3.4-5.1) mmol/L Chloride 104 (98-107) mmol/L Carbon Dioxide 30 (22-32) mmol/L BUN 14 (7-17) mg/dL Creatinine 0.85 (0.52-1.04) mg/dL Estimated GFR > 60 (>60) mL/min BUN/Creatinine Ratio 16.5 (6-22) Glucose 92 (70-100) mg/dL Calcium 9.2 (8.4-10.2) mg/dL Magnesium 2.0 (1.6-2.3) mg/dL Total Bilirubin 0.4 (0.2-1.3) mg/dL AST 34 (14-36) IU/L ALT 32 (<35) IU/L Alkaline Phosphatase 57 (38-126) U/L Total Creatine Kinase 88 (30-135) U/L Troponin I < 0.012 < 0.012 (0.01-0.034) ng/mL NT-Pro-B Natriuret Pep 45 (<125) pg/mL Total Protein 6.9 (6.3-8.2) g/dL Albumin 4.5 (3.5-5.0) g/dL Globulin 2.4 (1.7-4.1) g/dL Albumin/Globulin Ratio 1.9 (1.0-2.8) Lipase 161 (23-300) U/L Imaging Data Chest x-ray: Radiologist's Impression: [address] [address] XRay Report Signed Patient: Tila Francisco MR#: [id number] : 1970 Acct:[id number] Age/Sex: 53 / F Date of Service: 10/02/24 Loc: ED Accession Number: [id number] Procedure: XR chest 1V Ordering Provider: Sandy Fernandez D.O. PROCEDURE: XR CHEST 1V INDICATIONS: chest pain TECHNIQUE: One view of the chest was acquired. COMPARISON: [facility], , XR CHEST 1V, 06/11/2023, 21:38. FINDINGS: Surgical changes and devices: Lead less pacer is seen. Lungs and pleura: Lungs are clear. No pleural effusions or pneumothorax. Mediastinum: Mediastinal contours appear normal. Heart size is normal. Bones and chest wall: No suspicious bony lesions. Overlying soft tissues appear unremarkable. IMPRESSION: No acute cardiopulmonary pathology. Dictated by: Nick Burgos M.D. on 10/02/2024 at 19:17 Approved by: Nick Burgos M.D. on 10/02/2024 at 19:18 ECG Data Attestation: I personally reviewed and interpreted this ECG as follows: Prior ECG tracings: available for review Interpretation: Sinus rhythm rate of 62 [place] 186 QRS 88 QTC of 430, patient has prior from 06/12/2023 which appears similar overall. Repeat EKG shows sinus bradycardia rate of 56 WI 198 QRS 84 QTC of 418, no acute ST elevation depression noted. Patient does not have any significant T-wave changes. MDM Narrative Medical decision making narrative: 53-year-old female with a history of cardiac arrhythmias scheduled for an ablation on 10/17/2024 presents with a complaint of feeling like she was having pauses or palpitation not her usual SVT. She states she has a loop recorder in place. Also had an echo recently she states showed an EF of 64% which improved from ejection fraction of 45% in 2022. Labs show white count of 4.9 hemoglobin of 13.2 platelets of 271 coags are negative, CMP shows sodium 140 potassium 3.8 chloride 104 CO2 of 30 BUN 14 creatinine 0.85 glucose 92 LFTs is are negative troponin less than 0.012. BNP is 45. Repeat troponin less than 0.012. D-dimer is less than 215. EKG shows sinus rhythm Chest x-ray shows no acute change 2055: Consult with cardiology, [facility], Dr. Ortiz on-call reviewed patient's labs, history that she has prior history of sick sinus syndrome and SVT and scheduled for an ablation reviewed labs EKG findings here he feels comfortable with the patient following up he states she does have some loop recorder findings and their system but they are all normal. 2118: Patient went to get up out of the bed states she felt like she could not breathe like her trachea was narrowed. She states she could speak she had just taken a sip of water but states it does not feel like water went down her throat the wrong way. Patient was laid back down and had improvement. Nursing states she was speaking throughout the entire event. She states it felt different than the episode she had earlier today. She did feel lightheaded and states everything started to get black like she was going to pass out again. She was currently lying flat states symptoms have resolved shortly after. Repeat EKG, troponin and d-dimer added on. Patient tolerated orthostatics afterwards without issue. HR did elevated 20 points from 56 to 72. Discussed with patient if she would like to stay for observation for telemetry, serial enzymes. She does not. She did well with ambulation trial and is feeling improved. She was going to reach out to her community service representative tomorrow. Patient notes she thinks she may have had a laryngospasm with the episode here in the department she did not note that she would some water just before so this could be possible she states it was very different than the episode she had in her car. Discharge Plan Departure Patient Disposition: Home Clinical Impression: Palpitations Activity Restrictions/Additional Instructions: Please call to touch base with your cardiology team I did talk to Dr. Ortiz this evening. They can look at you really recorder for the times from the episodes today. Continue your home medications as prescribed. Please return if you have any new or recurrent symptoms, passing out, new chest pain or shortness of breath, lightheadedness, persistently ear irregular or fast or slow heartbeat or other new or concerning changes. Prescriptions: No Action spironolactone 100 mg tablet 100 mg PO BID PRN (Reason: as directed) thyroid (pork) 30 mg tablet 75 mg PO DAILY Patient Comments: take 2 and 1/2 tablets by mouth once daily multivitamin Tablet 1 tab PO DAILY cholecalciferol (vitamin D3) [Vitamin D3] 5,000 unit Tablet 5,000 unit PO WEEKLY hydroxyzine pamoate [Vistaril] 50 mg capsule 50 mg PO TID-QID PRN (Reason: anxiety) Qty: 20 0RF spironolactone 100 mg tablet 100 mg PO BID thyroid (pork) 60 mg tablet 60 mg PO DAILY bupropion HCl 300 mg tablet extended release 24 hr 150 mg PO DAILY Qty: 30 0RF Stand Alone Forms: Patient Portal/API/Survey
[2024-10-02 19:13] LABS: Add Manual Diff / Slide Review NO; Basophils Absolute Auto 0 /uL (0-100); Basophils Percent Auto 0.7 % (0-2); Eosinophils Absolute Auto 100 /uL (0-450); Eosinophils Percent Auto 1.3 % (2-4); Hematocrit 38.6 % (36-46); Hemoglobin 13.2 g/dL (12.0-16.0); Lymphocytes Absolute Auto 2300 /uL (1100-4500); Lymphocytes Percent Auto 46.5 % (25-40); Mean Corpuscular HGB Conc 34.2 % (30-36); Mean Corpuscular Hemoglobin 32.4 PG (26-34); Mean Corpuscular Volume 94.8 fL (80-100); Monocytes Absolute Auto 400 /uL (0-900); Monocytes Percent Auto 7.3 % (3-14); Neutrophils Absolute Auto 2200 /uL (1500-7000); Neutrophils Percent Auto 44.2 % (50-75); Platelet Count 271 X10^3/uL (150-400); Red Blood Cell Count 4.07 X10^6/uL (4.0-5.2); Red Cell Distribution Width 12.7 % (11.6-14.8); White Blood Cell Count 4.9 X10^3/uL (4.5-11.0)
[2024-10-02 19:18] LABS: Prothrombin Time 11.6 SECONDS (9.4-12.5)
[2024-10-02 19:21] LABS: PTT Partial Thromboplastin Tim 36 SECONDS (25.1-36.5)
[2024-10-02 19:25] LABS: Alanine Aminotransferase 32 IU/L (<35); Albumin 4.5 g/dL (3.5-5.0); Albumin Globulin Ratio 1.9 (1.0-2.8); Alkaline Phosphatase 57 U/L (38-126); Aspartate Aminotransferase 34 IU/L (14-36); BUN Creatinine Ratio 16.5 (6-22); Bilirubin Total 0.4 mg/dL (0.2-1.3); Blood Urea Nitrogen 14 mg/dL (7-17); Calcium 9.2 mg/dL (8.4-10.2); Carbon Dioxide 30 mmol/L (22-32); Chloride 104 mmol/L (98-107); Creatine Kinase 88 U/L (30-135); Estimated Glomerular Filt Rate > 60 mL/min (>60); Globulin 2.4 g/dL (1.7-4.1); Glucose 92 mg/dL (70-100); HEMOLYSIS < 15 (0-50); Lipase 161 U/L (23-300); Potassium 3.8 mmol/L (3.4-5.1); Sodium 140 mmol/L (137-145); Total Protein 6.9 g/dL (6.3-8.2)
[2024-10-02 19:36] LABS: NT-proBNP (BNP-Adult 18+) 45 pg/mL (<125); Troponin I < 0.012 ng/mL (0.01-0.034)
[2024-10-02] MEDS: ASPIRIN 81 MG CHEW TAB 324 MG PO (19:45)
--- NOTE | 2024-10-02 21:10 | EKG_ITS ---
[address] [address] Test Date: 2024-10-02 Pat Name: Tila Francisco Department: [facility] Room: Gender: Female Street Engineer: : 1970 Requested By: Order Number: [id number] Reading MD: Kennedy Dupree MD Measurements Intervals [place] Rate: 56 P: 30 NM: 198 QRS: 76 QRSD: 84 T: 48 QT: 434 QTc: 418 Interpretive Statements Sinus bradycardia Electronically Signed On 10-03-2024 8:43:24 PST by Kennedy Dupree MD
[2024-10-02 21:30] LABS: D Dimer < 215 ng/ml (<500)
[2024-10-02] MEDS: SODIUM CHLORIDE 0.9% 1,000 ML 1000 ML IV (21:39)
--- NOTE | 2024-10-02 21:50 | PC.NURSE ---
This nurse went into the patient's room at [address]100 to DC patient and Dr. Fernandez deemed safe for DC. Patient was lying down in [facility] and wanted to sit up and sit for a few minutes before she walked to her car. At 2103 Patient took a drink of water and began coughing instantly, then she stood up sayng I can't breath, oh my God I can't breath. Pt wa gasping and bent over to the trash can as she thought she was going to throw up. Then stood up and said I still can't breath. this nurse immediately transferred the pt back into [facility] and placed on monitors. Her breathing returned to normal about 10seconds after getting on the rsutter. See vital signs documented at 2105. VSS. Dr. Frenandez notified immediately. New orders were placed and carried out. Pt wanted to use the commode- was able to sit and use the commode, and get back in bed with no complication.
[2024-10-02 21:57] LABS: Troponin I < 0.012 ng/mL (0.01-0.034)
--- NOTE | 2024-10-02 22:55 | PC.NURSE ---
pt ambulated without difficulty, denies CP, SOB or palpitations. Pt ate a quesadilla and rice with no issues. Dr. ange garcia.
== END 2024-10-02 23:04 | disposition home or self-care (01) ==
PROVIDERS: Emergency Provider Emergency Medicine
DX: R00.2 Palpitations (principal); R07.9 Chest pain, unspecified; R00.1 Bradycardia, unspecified
CPT/HCPCS: 36415; 71045; 80053; 82550; 83690; 83735; 83880; 84484; 85025; 85379; 85610; 85730; 93005; 93010; 96360; 99284

== ENCOUNTER → 2025-08-18 14:45 | Outpatient (CLI) | payer BC, SELFPAY ==
--- NOTE | 2025-08-18 14:48 | DI.MRI.S_ITS ---
PROCEDURE: MR KNEE RT WO CON INDICATIONS: preoperative planning; right knee pain TECHNIQUE: Noncontrast sagittal PD fast spin echo and T2 fast spin echo with fat saturation, sagittal 3-D FLASH with fat saturation; coronal T1 spin echo and PD fast spin echo with fat saturation, and axial PD fast spin echo with fat saturation through the knee. COMPARISON: [facility], MR, MR KNEE RT WO CON, 02/05/2020, 10:18. FINDINGS: Image quality: Excellent. Anterior cruciate ligament: Intact. Posterior cruciate ligament: Intact. Medial collateral ligament: Intact. Lateral collateral ligament: Intact. Medial meniscus: Diminutive appearance of the body and posterior horn of the medial meniscus is compatible with prior partial meniscectomy. Lateral meniscus: Intact. Medial and lateral tendons: The semimembranosus tendon insertions appear intact. Visualized portions of the pes anserinus tendons appear normal. Mild distal patellar tendinosis. Iliotibial band appears normal. Anterior structures: The quadriceps and patellar tendons appear intact. Borderline patella rosemary. Mildly shallow trochlear groove with lateral patellar tilting. Trace edema at the superior aspect of the infrapatellar fat pad as well as mild postsurgical scarring. Bones: No bone marrow contusions or fractures. Medial femorotibial cartilage: High-grade and likely full-thickness cartilage loss at the central posterior weight-bearing portion of the medial femorotibial compartment with subchondral edema and mild remodeling of the articular surfaces, mildly progressed when compared to the MRI from 02/05/2020. Small marginal osteophytes are present. Lateral femorotibial cartilage: Mild partial-thickness cartilage thinning in surface irregularity with small marginal osteophytes. Patellofemoral cartilage: Full-thickness cartilage loss is seen at the medial patellar facet with subchondral osteophyte formation. At least high-grade cartilage loss in the trochlear groove. Small marginal osteophytes are present. Soft tissues: Small joint effusion is present. Moderate medial popliteal cyst. Visualized musculature is age-appropriate in bulk. IMPRESSION: 1. Postsurgical changes from partial medial meniscectomy with a diminutive residual rim of meniscal tissue. 2. High-grade and full-thickness cartilage loss in the medial femorotibial compartment with subchondral edema and mild remodeling of the articular surfaces, progressed when compared to the MRI from 02/05/2020. Small area of full-thickness cartilage loss in the patellofemoral compartment and grade 2 and malacia in the lateral femorotibial compartment do not appear significantly changed. 3. Cruciate and collateral ligaments are intact. No acute trabecular bone injury. No lateral meniscal tear is seen. 4. 5. Mild patella rosemary. Mild edema is seen at the superolateral aspect of the infrapatellar fat pad, which can be seen in the setting of lateral femoral condyle-patellar tendon friction syndrome. 6. Small joint effusion. Moderate medial popliteal cyst. Approved by: Low Chavez M.D. on 08/19/2025 at 9:14
== END ==
LOC: MRI 14:47
PROVIDERS: Referring Provider Orthopaedic Surgery; Visit Provider Orthopaedic Surgery
DX: M17.11 Unilateral primary osteoarthritis, right knee (principal); M25.461 Effusion, right knee; M71.21 Synovial cyst of popliteal space [Baker], right knee
CPT/HCPCS: 73721